=== PATIENT | male | born 1950 | race Caucasian/White ===

== ENCOUNTER → 2016-05-18 | Outpatient (CLI) | payer MEDICARE, BC ==
[~2016-05-18] MED LIST: HCTZ; HUM10VIA SQ; LABE200T27 PO; LORA0.5T86 PO; METF-200 PO; TAMS0.4C20 PO
== END ==
LOC: LABN.WIC 12:00 → LABN 12:00
PROVIDERS: ATTEND Family Medicine
DX: N39.0 Urinary tract infection, site not specified (principal)
CPT/HCPCS: 87086

== ENCOUNTER 2017-04-20 12:30 | Inpatient (IN) ==
--- OUTSIDE RECORDS SUMMARY | 2017-04-20 13:49 | External Medical Summary | Continuity of Care Document ---
:1950 Author Organization [facility] Care Team Providers Name Role Phone [employer] Unavailable Unavailable Encounters Location Location Encounter Encounter Reason Attending ADM DC Status Source Details Type Number For Provider Date Date Visit INPATIENT [id number] ZAC 04/07 04/20 Active [facility] O Active [facility]
--- OUTSIDE RECORDS SUMMARY | 2017-04-20 13:50 | External Medical Summary | Clinical Summary ---
:1950 Author Organization [facility] Address [address] [place] [address] Phone Care Team Providers Name Role Phone Chad Flores MD Primary Care Provider Source Comments Some departments are not documenting in the electronic medical record. If you do not see the information that you expected, contact Release of Information in the Health Information Management department at [phone] for further assistance in locating additional records.[facility] Allergies No Known Allergies Current Medications Prescription Sig. Disp. Refills Start Date End Date Status metFORMIN Take 500 mg by Active (GLUCOPHAGE) 500 mg mouth twice tablet daily with meals. tamsulosin (FLOMAX) Take 0.4 mg by Active 0.4 mg capsule mouth daily. Do not crush, chew or open capsules. Take 30 minutes following the same meal each day. atorvastatin Take 40 mg by Active (LIPITOR) 40 mg mouth daily. tablet amlodipine-benazepri Take 1 capsule Active l (LOTREL) 5-10 mg by mouth daily. capsule nitroglycerin Place 0.3 mg Active (NITROSTAT) 0.3 mg under tongue tablet every 5 minutes as needed for Chest Pain. sertraline (ZOLOFT) Take 1.5 04/20/2017 Active 100 mg tablet tablets by mouth daily. carvedilol (COREG) Take 1 tablet 180 tablet 3 04/20/2017 Active 3.125 mg tablet by mouth twice daily. Take with food. prednisone Take 4 tablets 16 tablet 0 04/20/2017 04/24/2017 Active (DELTASONE) 20 mg by mouth daily tablet for 4 days. famotidine (PEPCID) Take 1 tablet 180 tablet 3 04/20/2017 Active 20 mg tablet by mouth twice daily. insulin aspart U-100 Inject 8 Units 45 mL 3 04/20/2017 Active (NOVOLOG FLEXPEN) under the skin 100 unit/mL three times injection PEN daily with meals. insulin glargine Inject 16 Units 45 mL 3 04/20/2017 Active (LANTUS SOLOSTAR, under the skin BASAGLAR) 100 at bedtime unit/mL (3 mL) daily. injection PEN polyethylene glycol Take 2 packets 12 each 1 04/20/2017 Active 3350 (MIRALAX) 17 g by mouth twice packet daily as needed. calcium Take 1 tablet 180 tablet 1 04/20/2017 Active carbonate/vitamin by mouth twice D-3 (OSCAL-500+D) daily. Calcium 1250 mg/200 unit Carb 1250mg tablet delivers 500mg elemental Ca sertraline (ZOLOFT) Take 100 mg by 04/20/2017 Suspended 100 mg tablet mouth daily. gabapentin Take 1,200 mg 04/20/2017 Suspended (NEURONTIN) 600 mg by mouth three tablet times daily. HYDROcodone/acetamin Take 1-2 04/20/2017 Suspended ophen(+) (NORCO) tablets by 10/325 mg tablet mouth every 6 hours as needed for Pain aspirin 325 mg Take 325 mg by 04/20/2017 Suspended tablet mouth daily. Take with food. Active Problems Problem Noted Date Stroke (HCC) 04/07/2017 Secondary hypertension 04/07/2017 Agitation 04/07/2017 Elevated troponin 04/07/2017 Encounters Date Type Specialty Care Team Description 04/17/2017 Procedure Pass 04/09/2017 Procedure Pass 04/09/2017 Procedure Pass 04/08/2017 Anesthesia Event Radiology Guillermo Staples, SYLVIE 04/08/2017 Anesthesia Event Radiology Kassy Clarke MD 04/08/2017 Procedure Pass 04/07/2017 - Hospital Encounter Reza Naylor MD Stroke ([facility]) 04/20/2017 Ely Casey MD Sharma, Kartavya, MD Aggarwal, Dipika, MBBS Rosterman, Lee, DO 04/07/2017 Hospital Encounter Radiology 04/07/2017 Procedure Pass 04/07/2017 Procedure Pass 04/07/2017 Procedure Pass 04/07/2017 Procedure Pass 04/07/2017 Hospital Encounter Radiology 04/07/2017 Ancillary Orders Radiology Outpatient, Diagnosis unknown Radiologist from Last 3 Months Social History Tobacco Use Types Packs/Day Years Used Date Never Assessed Sex Assigned at Date Recorded Not on file Last Filed Vital Signs Vital Sign Reading Time Taken Blood Pressure 179/87 04/20/2017 6:11 AM [employer] Pulse 117 04/20/2017 6:11 AM [employer] Temperature 36.9 C (98.4 F) 04/20/2017 6:11 AM [employer] Respiratory Rate - - Oxygen Saturation 93% 04/20/2017 6:11 AM [employer] Inhaled Oxygen Concentration - - Weight 101.1 kg (222 lb 14.2 oz) 04/15/2017 12:00 AM [employer] Height 188 cm (6' 2.02") 04/07/2017 4:00 PM [employer] Body Mass Index 28.6 04/15/2017 12:00 AM [employer] Plan of Treatment Health Maintenance Due Date Last Done Comments HEPATITIS C SCREENING 1950 PHYSICAL (COMPREHENSIVE) EXAM 1957 PERTUSSIS VACCINE 1961 TETANUS VACCINE 11/09/1967 COLORECTAL CANCER SCREENING 2000 SHINGLES VACCINE 2010 PREVNAR/PNEUMOVAX (#1) 11/09/2015 INFLUENZA VACCINE 09/17/2017 Procedures Procedure Name Priority Date/Time Associated Diagnosis Comments ECG-SCAN 04/08/2017 10:25 PM Results for this [employer] procedure are in the results section. from Last 3 Months Results POC GLUCOSE (04/20/2017 7:59 AM)Only the most recent of108 resultswithin the time period is included. Component Value Ref Range Glucose, POC 83 70 - 100 MG/DL Specimen Performing Laboratory [facility] [address] [place] [address] NOTES (04/20/2017 5:56 AM)Only the most recent of2 resultswithin the time period is included. Component Value Ref Range Specimen Notes FAGOTER RT WRIST Specimen Performing Laboratory REFERENCE LAB CBC AND DIFF (04/20/2017 5:56 AM)Only the most recent of10 resultswithin the time period is included. Component Value Ref Range White Blood Cells 15.1 (H) 4.5 - 11.0 K/UL RBC 3.22 (L) 4.4 - 5.5 M/UL Hemoglobin 9.9 (L) 13.5 - 16.5 GM/DL Hematocrit 30.1 (L) 40 - 50 % MCV 93.4 80 - 100 FL MCH 30.8 26 - 34 PG MCHC 32.9 32.0 - 36.0 G/DL RDW 14.7 11 - 15 % Platelet Count 150 150 - 400 K/UL MPV 8.9 7 - 11 FL Neutrophils 83 (H) 41 - 77 % Lymphocytes 12 (L) 24 - 44 % Monocytes 5 4 - 12 % Eosinophils 0 0 - 5 % Basophils 0 0 - 2 % Absolute Neutrophil Count 12.50 (H) 1.8 - 7.0 K/UL Absolute Lymph Count 1.80 1.0 - 4.8 K/UL Absolute Monocyte Count 0.70 0 - 0.80 K/UL Absolute Eosinophil Count 0.10 0 - 0.45 K/UL Absolute Basophil Count 0.00 0 - 0.20 K/UL Specimen Performing Laboratory [facility] [address] [place] [address] MAGNESIUM (04/20/2017 5:56 AM)Only the most recent of13 resultswithin the time period is included. Component Value Ref Range Magnesium 1.8 1.6 - 2.6 mg/dL Specimen Performing Laboratory [facility] [address] [place] [address] IONIZED CALCIUM (04/20/2017 5:56 AM)Only the most recent of11 resultswithin the time period is included. Component Value Ref Range Ionized Calcium 1.26 1.0 - 1.3 MMOL/L Specimen Performing Laboratory [facility] [address] [place] [address] BASIC METABOLIC PANEL (04/20/2017 5:56 AM)Only the most recent of39 resultswithin the time period is included. Component Value Ref Range Sodium 141 137 - 147 MMOL/L Potassium 3.4 (L) 3.5 - 5.1 MMOL/L Chloride 104 98 - 110 MMOL/L CO2 28 21 - 30 MMOL/L Anion Gap 9 3 - 12 Glucose 71 70 - 100 MG/DL Blood Urea Nitrogen 26 (H) 7 - 25 MG/DL Creatinine 0.98 0.4 - 1.24 MG/DL Calcium 9.3 8.5 - 10.6 MG/DL eGFR Non >60 >60 mL/min Comment: The eGFR is not validated for use in drug dosing adjustments.Continue to use estimated creatinine clearance per dosing reference text.Please contact the Clinical Pharmacist for questions. eGFR >60 >60 mL/min Comment: The eGFR is not validated for use in drug dosing adjustments.Continue to use estimated creatinine clearance per dosing reference text.Please contact the Clinical Pharmacist for questions. Specimen Performing Laboratory Blood [facility] [address] [place] [address] NM PET SCAN TORSO (SKULL-THIGHS) (04/18/2017 11:34 AM) Specimen Performing Laboratory [facility] RAD RESULTS Impressions 1.Findings suggestive of primary infrahilar neoplasm with postobstructive pneumonia and probable malignant right pleural effusion. 2.Metabolically active right hilar lymphadenopathy concerning for tommy metastatic disease. 3.Metabolically active hepatic lesion compatible with hepatic metastatic disease. 4.Scattered metabolically active lytic osseous lesions compatible with osseous metastatic disease. Approved by Chad Mendez M.D. on 04/18/2017 3:09 PM By my electronic signature, I attest that I have personally reviewed the images for this examination and formulated the interpretations and opinions expressed in this report Finalized by Ben Albrecht M.D. on 04/18/2017 5:45 PM. Dictated by Chad Mendez M.D. on 04/18/2017 12:57 PM. 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 RADIOPHARMACEUTICAL:17.8 mCi F-18 Fluorodeoxyglucose (FDG) IV. TECHNIQUE: Beginning approximately 60 minutes after tracer administration, routine whole body PET/CT imaging was performed from the level of the base of the skull to the upper thighs. PET images were reviewed in standard orthogonal projections. Low dose non-contrast CT imaging was performed for attenuation correction and localization purposes. BLOOD GLUCOSE LEVEL AT THE TIME OF RADIOPHARMACEUTICAL ADMINISTRATION:124 mg/dl COMPARISON: None FINDINGS: Current SUV: Mean hepatic: 2.2 Max hepatic: 4.5 Head/Neck: No suspicious lesions are identified in this region. Chest: Redemonstration of an infrahilar mass which demonstrates a maximum SUV of 8.23 (index -412, CT image 131). Hypermetabolic right hilar lymphadenopathy with maximum SUV of 6.88 (index -382, CT image 122). Additional nodular pulmonary opacities are present within the dependent right lung adjacent to the pleural effusion and demonstrate mild increased FDG uptake, maximum SUV of 8.22 (index -435). Pleural effusion demonstrates a maximum SUV of 3.12 (index -474, CT image 150). Abdomen/Pelvis: Hypermetabolic lesion within hepatic segment 6 demonstrates a maximum SUV of 16.5 (index -585, CT image 104). No hypermetabolic abdominal or pelvic lymphadenopathy. Physiological activity is noted within the kidneys and bladder. Osseous Structures: Numerous scattered hypermetabolic lytic osseous lesions are present including within the cervical spine, thoracolumbar spine, right clavicle, manubrium, sternum, bilateral scapulae, proximal right humerus, bilateral ribs, bilateral iliac bones, right acetabulum, sacrum, and bilateral proximal femurs (greater on the right). Nicu Rn lesion within the lateral right third rib demonstrates a maximum SUV of 6.05 (index -336, CT image 108). Additional significant low dose CT findings: Right pleural effusion. Bilateral nonobstructing nephrolithiasis. Diverticulosis. Bilateral small fat-containing inguinal hernias. Uncorrected PET images:Uncorrected PET images demonstrate no additional abnormality. 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 RADIOPHARMACEUTICAL: 17.8 mCi F-18 Fluorodeoxyglucose (FDG) IV. TECHNIQUE: Beginning approximately 60 minutes after tracer administration, routine whole body PET/CT imaging was performed from the level of the base of the skull to the upper thighs. PET images were reviewed in standard orthogonal projections. Low dose non-contrast CT imaging was performed for attenuation correction and localization purposes. BLOOD GLUCOSE LEVEL AT THE TIME OF RADIOPHARMACEUTICAL ADMINISTRATION: 124 mg/ dl COMPARISON: None FINDINGS: Current SUV: Mean hepatic: 2.2 Max hepatic: 4.5 Head/Neck: No suspicious lesions are identified in this region. Chest: Redemonstration of an infrahilar mass which demonstrates a maximum SUV of 8.23 (index -412, CT image 131). Hypermetabolic right hilar lymphadenopathy with maximum SUV of 6.88 (index -382, CT image 122). Additional nodular pulmonary opacities are present within the dependent right lung adjacent to the pleural effusion and demonstrate mild increased FDG uptake , maximum SUV of 8.22 (index -435). Pleural effusion demonstrates a maximum SUV of 3.12 (index -474, CT image 150). Abdomen/Pelvis: Hypermetabolic lesion within hepatic segment 6 demonstrates a maximum SUV of 16.5 (index -585, CT image 104). No hypermetabolic abdominal or pelvic lymphadenopathy. Physiological activity is noted within the kidneys and bladder. Osseous Structures: Numerous scattered hypermetabolic lytic osseous lesions are present including within the cervical spine, thoracolumbar spine, right clavicle, manubrium, sternum, bilateral scapulae, proximal right humerus, bilateral ribs, bilateral iliac bones, right acetabulum, sacrum , and bilateral proximal femurs (greater on the right). Nicu Rn lesion within the lateral right third rib demonstrates a maximum SUV of 6.05 (index -336, CT image 108). Additional significant low dose CT findings: Right pleural effusion. Bilateral nonobstructing nephrolithiasis. Diverticulosis. Bilateral small fat-containing inguinal hernias. Uncorrected PET images: Uncorrected PET images demonstrate no additional abnormality. IMPRESSION 1. Findings suggestive of primary infrahilar neoplasm with postobstructive pneumonia and probable malignant right pleural effusion. 2. Metabolically active right hilar lymphadenopathy concerning for tommy metastatic disease. 3. Metabolically active hepatic lesion compatible with hepatic metastatic disease. 4. Scattered metabolically active lytic osseous lesions compatible with osseous metastatic disease. Approved by Chad Mendez M.D. on 04/18/2017 3:09 PM By my electronic signature, I attest that I have personally reviewed the images for this examination and formulated the interpretations and opinions expressed in this report Finalized by Ben Albrecht M.D. on 04/18/2017 5:45 PM. Dictated by Chad Mendez M.D. on 04/18/2017 12:57 PM. PHOSPHORUS (04/18/2017 5:02 AM)Only the most recent of10 resultswithin the time period is included. Component Value Ref Range Phosphorus 3.6 2.0 - 4.0 MG/DL Specimen Performing Laboratory [facility] [address] [place] [address] URINALYSIS MICROSCOPIC REFLEX TO CULTURE (04/17/2017 5:00 PM)Only the most recent of3 resultswithin the time period is included. Component Value Ref Range WBCs,UA 0-2 0 - 2 /HPF RBCs,UA 0-2 0 - 3 /HPF Comment,UA Urine submitted for reflex culture if criteria are met:WBC>10, positive nitrite and/or >=1+ leukocyte esterase. If quantity is not sufficient, an addendum will follow. MucousUA TRACE Squamous Epithelial Cells 0-2 0 - 5 Specimen Performing Laboratory Urine [facility] [address] [place] [address] URINALYSIS DIPSTICK REFLEX TO CULTURE (04/17/2017 5:00 PM)Only the most recent of3 resultswithin the time period is included. Component Value Ref Range Color,UA YELLOW Turbidity,UA CLEAR CLEAR-CLEAR Specific [place]-Urine 1.016 1.003 - 1.035 pH,UA 5.0 5.0 - 8.0 Protein,UA NEG NEG-NEG Glucose,UA 1+ (A) NEG-NEG Ketones,UA NEG NEG-NEG Bilirubin,UA NEG NEG-NEG Blood,UA NEG NEG-NEG Urobilinogen,UA NORMAL NORM-NORMAL Nitrite,UA NEG NEG-NEG Leukocytes,UA NEG NEG-NEG Urine Ascorbic Acid, UA NEG NEG-NEG Specimen Performing Laboratory Urine [facility] [address] [place] [address] CHEST SINGLE VIEW (04/17/2017 1:53 PM)Only the most recent of3 resultswithin the time period is included. Specimen Performing Laboratory [facility] RESULTS Impressions Persistent consolidation in the right lung base likely due to pneumonia. Approved by Claude Olivarez M.D. on 04/17/2017 2:34 PM By my electronic signature, I attest that I have personally reviewed the images for this examination and formulated the interpretations and opinions expressed in this report Finalized by ALEX ROY M.D. on 04/17/2017 4:56 PM. Dictated by Claude Olivarez M.D. on 04/17/2017 1:55 PM. Narrative CHEST SINGLE VIEW Clinical Indication: Male, 66 years old. Leukocytosis. Tachycardia. Comparison: Chest x-ray April 08, 2017. CT chest April 09, 2017. Findings: Interval removal of endotracheal tube and enteric tube. Cardiac silhouette and pulmonary vasculature are within normal limits. Persisting consolidation in the right lung base. No pleural effusion or pneumothorax. Pathologic fracture is again seen involving the right third rib. Procedure Note Interface, Radiant Results - 04/17/2017 4:59 PM [employer] CHEST SINGLE VIEW Clinical Indication: Male, 66 years old. Leukocytosis. Tachycardia. Comparison: Chest x-ray April 08, 2017. CT chest April 09, 2017. Findings: Interval removal of endotracheal tube and enteric tube. Cardiac silhouette and pulmonary vasculature are within normal limits. Persisting consolidation in the right lung base. No pleural effusion or pneumothorax. Pathologic fracture is again seen involving the right third rib. IMPRESSION Persistent consolidation in the right lung base likely due to pneumonia. Approved by Claude Olivarez M.D. on 04/17/2017 2:34 PM By my electronic signature, I attest that I have personally reviewed the images for this examination and formulated the interpretations and opinions expressed in this report Finalized by ALEX ROY M.D. on 04/17/2017 4:56 PM. Dictated by Claude Olivarez M.D. on 04/17/2017 1:55 PM. CBC (04/17/2017 5:26 AM)Only the most recent of4 resultswithin the time period is included. Component Value Ref Range White Blood Cells 19.2 (H) 4.5 - 11.0 K/UL RBC 3.48 (L) 4.4 - 5.5 M/UL Hemoglobin 10.5 (L) 13.5 - 16.5 GM/DL Hematocrit 32.5 (L) 40 - 50 % MCV 93.4 80 - 100 FL MCH 30.2 26 - 34 PG MCHC 32.4 32.0 - 36.0 G/DL RDW 14.4 11 - 15 % Platelet Count 139 (L) 150 - 400 K/UL MPV 9.7 7 - 11 FL Specimen Performing Laboratory [facility] [address] [place] [address] NON-STATION EXAMINER CYTOLOGY (BODY FLUIDS/TISSUE) (04/15/2017 1:55 PM) Component Value Ref Range Cytology [facility] [email or web address] Department of Pathology and Laboratory Medicine [address] [place] [address] Surgical Pathology Office:[phone]:[phone] CYTOLOGY REPORT NAME: ROHAN LOMBARDI CYTOLOGY #: [id number] MR #: [id number] ALT ID #: BILLING #: [id number] LOC[facility]: [facility] DATE OF PROCEDURE: 04/15/2017 AGE: 66 SEX: M DATE RECEIVED: 04/15/2017 : 1950TIME RECEIVED:13:55 PHYSICIAN: ELY MANRIQUEZ DATE OF REPORT: 04/17/2017 COPY TO: MD ASHLEY WHITE MD LEE ROSTERMAN, DO DATE OF PRINTIN04/17/2017 Material Received: A: Cerebrospinal Fluid History: 66 year old male, history of metastatic carcinoma of unknown origin and encephalopathy. Gross Description: ( 1 ThinPrep) 3ml blood tinged fluid ######################################################################## Final Diagnosis: A. Cerebrospinal Fluid: Negative for malignant cells. Please also see concurrent flow cytometry report ([id number]) which shows a negative phenotypic study. Attestation: By this signature, I attest that I have personally formulated the final interpretation expressed in this report and that the above diagnosis is based upon my examination of the slides and/or other material indicated in this report. +++Electronically Signed Out By+++ sabino/04/17/2017 Interpreted by: Yareli Davis MD, PhD Joselo Coello Specimen Performing Laboratory [facility] RESULTS IR LUMBAR PUNCTURE (04/15/2017 9:00 AM) Specimen Performing Laboratory [facility] RESULTS Impressions 1. Fluoroscopically guided lumbar puncture, opening pressures equal to less than 5 cm of water. 2. 9 cc of pinkish CSF removed and sent to the laboratory for further analysis. ILevar M.D., the attending radiologist, was present for the procedure, personally reviewed the images, and formulated the interpretations and opinions expressed in this report. @TT Finalized by Levar Gonzalez M.D. on 04/15/2017 9:24 AM. Dictated by Levar Gonzalez M.D. on 04/15/2017 9:23 AM. Narrative Exam: Fluoroscopically guided lumbar puncture. History: Encephalopathy, agitation. Technique: After obtaining informed written consent the patient was placed prone on the procedure table. The lower back was prepped and draped in a sterile fashion. Lidocaine was used for local anesthesia. An 18-gauge guide needle was placed into the dorsal soft tissues. The patient was then placed into a left lateral decubitus position. A 22-gauge spinal needle was advanced into the L3-4 intrathecal space. Opening pressures were obtained, and these measured less than 5 cm of water. Approximately 9 cc of pinkish CSF was removed. The needle was removed. The patient tolerated procedure well left the department in stable condition. Procedure Note Interface, Radiant Results - 04/15/2017 9:27 AM [employer] Exam: Fluoroscopically guided lumbar puncture. History: Encephalopathy, agitation. Technique: After obtaining informed written consent the patient was placed prone on the procedure table. The lower back was prepped and draped in a sterile fashion. Lidocaine was used for local anesthesia. An 18-gauge guide needle was placed into the dorsal soft tissues. The patient was then placed into a left lateral decubitus position. A 22-gauge spinal needle was advanced into the L3-4 intrathecal space. Opening pressures were obtained, and these measured less than 5 cm of water. Approximately 9 cc of pinkish CSF was removed. The needle was removed. The patient tolerated procedure well left the department in stable condition. IMPRESSION 1. Fluoroscopically guided lumbar puncture, opening pressures equal to less than 5 cm of water. 2. 9 cc of pinkish CSF removed and sent to the laboratory for further analysis. I, Levar Gonzalez M.D., the attending radiologist, was present for the procedure , personally reviewed the images, and formulated the interpretations and opinions expressed in this report. @TT Finalized by Levar Gonzalez M.D. on 04/15/2017 9:24 AM. Dictated by Levar Gonzalez M.D. on 04/15/2017 9:23 AM. FLOW CYTOMETRY (04/15/2017 8:48 AM) Component Value Ref Range PATHOLOGY REPORT [facility] [email or web address] Caprice Marroquin MD, Director of Clinical Laboratory Wang Kovacs MD, Director of Flow Cytometry Laboratory Department of Pathology and Laboratory Medicine [address] [place] [address] Surgical Pathology Office:[phone]:[phone] FLOW CYTOMETRY REPORT NAME: ROHAN LOMBARDI SURG PATH #: [id number] MR #: [id number] SPECIMEN CLASS: LC BILLING #: [id number] ALT ID #:LOCATION: [facility] DATE OF PROCEDURE: 04/15/2017 AGE:66 SEX: M DATE RECEIVED: 04/15/2017 : 1950TIME RECEIVED:09:51 PHYSICIAN: ZAC NICOLAS DO DATE OF REPORT: 04/15/2017 COPY TO: MD ASHLEY ROBERTS MD APARNA PENDURTHINEU DATE OF PRINTIN04/15/2017 Material Received: A: Cerebrospinal fluid tube 4 History: 66-year-old male with history of altered mental status and multiple bone lesions. ######################################################################## Final Diagnosis: Cerebrospinal fluid, flow cytometry: Negative immunophenotypic study. Interpretation: Lymphocytes comprise 14% of total events.The majority are T cells with a normal CD4 to CD8 ratio of 3.69 and normal antigen expression. B cells are polyclonal with normal antigen expression.There is no immunophenotypic evidence of non-Hodgkin lymphoma. Attestation: By this signature, I attest that I have personally formulated the final interpretation expressed in this report and that the above diagnosis is based upon my examination of the slides and/or other material indicated in this report. +++Electronically Signed Out By+++ leb/04/15/2017 Interpreted by: MD Tyesha Horne MD Resident 04/15/2017 ######################################################################## Lab Data: Flow Cytometry - CSF Panel B Cell Associated Markers (% Positive Cells): CD19=17; Garnet=10; Lambda=7; Garnet:Lambda ratio=1.5 T Cell Associated Markers (% Positive Cells): CD3=76; CD4=60; CD8=17; CD3+CD4+=59; CD3+CD8+=16; CD4:CD8 ratio =3.7 Miscellaneous Markers (% Positive Cells): PD05=967; CD56=6 Cell Viability (%): qns Number of Cells Analyzed:9,568 Total Number of Markers: 8 Summary of Marker Combinations: Garnet/Lambda/4/3/19/45/56/8 This test was developed and its performance characteristics determined by the [facility] Flow Cytometry Laboratory.It has not been cleared or approved by the U.S. Food and Drug Administration (FDA).The FDA has determined that such clearance or approval is not necessary Specimen Performing Laboratory [facility] RESULTS LEUKEMIA/LYMPHOMA PANEL FLUID/TISSUE (04/15/2017 8:48 AM) Component Value Ref Range Leuk/Lymph Interpretation SEE PATHOLOGY REPORT Specimen/LLM CSF Specimen Performing Laboratory Cerebrospinal Fluid MAIN LAB [address] [place] [address] [id number] CELL COUNT W/DIFF-CSF (04/15/2017 8:48 AM)Only the most recent of2 resultswithin the time period is included. Component Value Ref Range Cell Count Tube,CSF TUBE 3 White Blood Cells,CSF 50 (HH) <5 /UL Comment: CRITICAL VALUE CALLED TO AND READ BACK BY/TIME/TECH KPR/1115/LETICIA S Red Blood Cells,CSF 19,800 /UL Neutrophils, CSF 63 % Lymphocytes, CSF 27 % Monocyte/Hisotocyte, CSF 10 % Clarity,CSF SLT BLOODY Path Interpretation, CSF HEMORRHAGIC FLUID Pathologist Signature INTERPRETED BY FRED WILLIS M.D. By the PATH SIGNATURE ABOVE, I attest that I have personally formulated the final interpretation expressed in this report and that the above diagnosis is based upon my examination of the slides and/or other material indicated in this report. Specimen Performing Laboratory Cerebrospinal fluid - Cerebrospinal Fluid MAIN LAB [address] [place] [address] TOTAL PROTEIN-CSF (04/15/2017 8:48 AM)Only the most recent of2 resultswithin the time period is included. Component Value Ref Range Total Protein,CSF 477 (H) 15 - 45 MG/DL Specimen Performing Laboratory Cerebrospinal fluid - Cerebrospinal Fluid [facility] [address] [place] [id number] GLUCOSE-CSF (04/15/2017 8:48 AM)Only the most recent of2 resultswithin the time period is included. Component Value Ref Range Glucose,CSF 104 (H) 40 - 75 MG/DL Xanthrochromia,CSF LARGE BLOOD PRESENT Specimen Performing Laboratory Cerebrospinal fluid - Cerebrospinal Fluid [facility] [address] [place] [address] C DIFFICILE BY PCR (04/14/2017 4:04 AM) Component Value Ref Range Battery Name C DIFFICILE PCR Specimen Description FECES Special Requests NONE C. Difficile Toxin B PCR NEGATIVE-wait 7 days to repeat test Report Status FINAL 04/14/2017 Specimen Performing Laboratory Feces [facility] [address] [place] [id number] BNP (B-TYPE NATRIURETIC PEPTI) (04/11/2017 5:32 PM)Only the most recent of2 resultswithin the time period is included. Component Value Ref Range B Type Natriuretic Peptide 84.0 0 - 100 PG/ML Specimen Performing Laboratory Blood [facility] [address] [place] [address] SURGICAL PATHOLOGY (04/11/2017 4:55 PM) Component Value Ref Range PATHOLOGY REPORT [facility] [email or web address] Department of Pathology and Laboratory Medicine [address] [place] [address] Surgical Pathology Office:[phone]:[phone] SURGICAL PATHOLOGY REPORT NAME: ROHAN LOMBARDI SURG PATH #: [id number] MR #: [id number] SPECIMEN CLASS: [facility] BILLING #: [id number] ALT ID #:LOCATION: [id number] DATE OF PROCEDURE: 04/11/2017 AGE:66 SEX: M DATE RECEIVED: 04/11/2017 : 1950TIME RECEIVED:16:55 PHYSICIAN: WERNER MACKEY MD DATE OF REPORT: 04/16/2017 COPY TO: MAGALY FAJARDO DO DATE OF PRINTIN04/16/2017 ######################################################################## Final Diagnosis: A. Bone, T-11, biopsy: Metastatic carcinoma. B. Bone, L-1, biopsy: Metastatic carcinoma. See comment. Comment: Immunohistochemical stains show the tumor cells are diffusely positive for CAM 5.2 and CK7, focally positive for GATA3 and androgen receptor (weak), negative for CK20, TTF-1, CDX2, PSA, PSAP and PAX-8. The immunoprofile are not specific for tumor origin, the metastatic tumor may come from carcinoma of bladder and upper GI tracts. Clinical correlation is recommended. Pursuant to the [employer] Program at the [facility] Pathology Department, selected slides from this case have been concurrently reviewed by the following pathologist: who agrees with the final diagnosis. Attestation: By this signature, I attest that I have personally formulated the final interpretation expressed in this report and that the above diagnosis is based upon my examination of the slides and/or other material indicated in this report. +++ +++ ksw/04/14/2017 ######################################################################## Material Received: A: T-11 B: L-1 History: 66-year-old male with a history of lytic lesions. Gross Description: A. Received in formalin, labeled with the patient's name and "T-11" is a 0.6 cm in length by 0.2 cm diameter brunner-brown, firm tissue fragment. The specimen is entirely submitted in cassette A1. Received in saline, labeled with the patient's name and "T-11" is a 0.9 x 0.5 x 0.2 cm irregular, brunner-red, firm tissue fragment. The specimen is entirely submitted in cassette A2. (lmt) B. Received in formalin, labeled with the patient's name and "L-1" is a 2.5 x 1.0 x 0.2 cm aggregate of pale brunner, soft tissue fragments with blood clotted elements. The specimen is entirely submitted in cassette B1. Received in saline, labeled with the patient's name and "L-1" is a 0.6 x 0.2 x 0.2 cm irregular, brunner-red, firm tissue fragment. The specimen is entirely submitted in cassette B2. (lmt) wlm/04/11/2017 If immunohistochemical stains and/or in situ hybridization are cited in this report, the performance characteristics were determined by the Department of Pathology and Laboratory Medicine of the [facility] ([employer]) in compliance with CLIA'88 regulations.Some of these tests rely on the use of "analyte specific reagents" and are subject to specific labeling requirements by the FDA. Known positive and negative control tissues demonstrate appropriate staining.Results should be interpreted with caution given the likelihood of false negativity on decalcified specimens.This testing was developed by the Department of Pathology and Laboratory Medicine of the [facility].It has not been cleared or approved by the FDA.The FDA has determined that such clearance or approval is not necessary. Specimen Performing Laboratory [facility] RESULTS GRAM STAIN (04/11/2017 2:00 PM)Only the most recent of3 resultswithin the time period is included. Component Value Ref Range Battery Name GRAM STAIN Specimen Description SPUTUM Special Requests NONE Gram Stain LESS THAN 10/LPF NEUTROPHILS LESS THAN 10/LPF SQUAMOUS EPITHELIAL CELLS NO ORGANISMS SEEN Report Status FINAL 04/11/2017 Specimen Performing Laboratory Sputum MAIN LAB [address] [place] [address] CULTURE-RESP,LOWER W/SENSITIVITY (04/11/2017 2:00 PM)Only the most recent of2 resultswithin the time period is included. Component Value Ref Range Battery Name LOWER RESP CULTURE Specimen Description SPUTUM Special Requests NONE Direct Gram Stain LESS THAN 10/LPF NEUTROPHILS LESS THAN 10/LPF SQUAMOUS EPITHELIAL CELLS NO ORGANISMS SEEN Culture Light growth NO SIGNIFICANT EYAD Report Status FINAL 04/13/2017 Specimen Performing Laboratory Sputum MAIN LAB [address] [place] [address] IR PERCUTANEOUS BIOPSY (04/11/2017 12:54 PM) Specimen Performing Laboratory [facility] RESULTS Impressions Impression: Fluoroscopically guided biopsy of the T11 and L1 vertebral bodies as discussed above. Levar Kaiser M.D., the attending radiologist, was present for the procedure, personally reviewed the images, and formulated the interpretations and opinions expressed in this report. @TT Finalized by Levar Gonzalez M.D. on 04/11/2017 2:06 PM. Dictated by Levar Gonzalez M.D. on 04/11/2017 1:05 PM. Narrative Exam: Fluoroscopically guided biopsy of T11, L1. History: Vertebral body lesion. Anesthesia: General endotracheal anesthesia. Comparison studies: Recent MRI scans. Technique: After obtaining informed written consent the patient was placed prone on the procedure table. The lower back was prepped and draped in a sterile fashion. The T11 level was localized with direct fluoroscopic visualization. Lidocaine was used for local anesthesia. A small skin incision overlying the right pedicle was made. An 11-gauge coaxial introducer set was advanced under direct fluoroscopic visualization, to the posterior aspect of the vertebral body. The biopsy device was inserted through the introducer set, and core biopsies were obtained. These were placed into saline and formalin, and sent to the laboratory for further analysis. The introducer set was removed. Hemostasis was achieved using manual compression. Dermabond and a sterile dressing was applied. The patient tolerated the procedure well and left the department in good condition. This same process was repeated for the L1 vertebral body. Procedure Note Interface, Radiant Results - 04/11/2017 2:09 PM [employer] Exam: Fluoroscopically guided biopsy of T11, L1. History: Vertebral body lesion. Anesthesia: General endotracheal anesthesia. Comparison studies: Recent MRI scans. Technique: After obtaining informed written consent the patient was placed prone on the procedure table. The lower back was prepped and draped in a sterile fashion. The T11 level was localized with direct fluoroscopic visualization. Lidocaine was used for local anesthesia. A small skin incision overlying the right pedicle was made. An 11-gauge coaxial introducer set was advanced under direct fluoroscopic visualization, to the posterior aspect of the vertebral body. The biopsy device was inserted through the introducer set, and core biopsies were obtained. These were placed into saline and formalin, and sent to the laboratory for further analysis. The introducer set was removed. Hemostasis was achieved using manual compression. Dermabond and a sterile dressing was applied. The patient tolerated the procedure well and left the department in good condition. This same process was repeated for the L1 vertebral body. IMPRESSION Impression: Fluoroscopically guided biopsy of the T11 and L1 vertebral bodies as discussed above. I, Levar Gonzalez M.D., the attending radiologist, was present for the procedure , personally reviewed the images, and formulated the interpretations and opinions expressed in this report. @TT Finalized by Levar Gonzalez M.D. on 04/11/2017 2:06 PM. Dictated by Levar Gonzalez M.D. on 04/11/2017 1:05 PM. UA REFLEX CULTURE LABEL (04/11/2017 11:31 AM)Only the most recent of2 resultswithin the time period is included. Component Value Ref Range UA Reflex Culture LAB LABEL Specimen Performing Laboratory Urine [facility] [address] [place] [id number] PROCALCITONIN (04/11/2017 11:31 AM)Only the most recent of2 resultswithin the time period is included. Component Value Ref Range Procalcitonin 0.08 <0.10 NG/ML Specimen Performing Laboratory Blood [facility] [address] [place] [phone] AMMONIA (04/11/2017 6:50 AM)Only the most recent of3 resultswithin the time period is included. Component Value Ref Range Ammonia 46 (H) 9 - 35 MCMOL/L Specimen Performing Laboratory Blood [facility] [address] [place] [address] HIV-1/2 ANTIGEN/ANTIBODY SCREEN (04/11/2017 3:10 AM) Component Value Ref Range HIV 1 and 2 AG AB Screen NEG NEG-NEG Specimen Performing Laboratory Blood [facility] [address] [place] [address] PERIPHERAL SMEAR (04/11/2017 3:10 AM) Component Value Ref Range Peripheral Smear NORMOCYTIC ANEMIA. GRANULOCYTOSIS WITHOUT LEFT SHIFT. PLATELETS APPEAR NORMAL IN NUMBER AND MORPHOLOGY. Pathologist Signature INTERPRETED BY MARY MEADE M.D. By the PATH SIGNATURE ABOVE, I attest that I have personally formulated the final interpretation expressed in this report and that the above diagnosis is based upon my examination of the slides and/or other material indicated in this report. Specimen Performing Laboratory Blood [facility] [address] [place] [address] LDH-LACTATE DEHYDROGENASE (04/11/2017 3:10 AM) Component Value Ref Range Lactate Dehydrogenase 573 (H) 100 - 210 U/L Specimen Performing Laboratory Blood [facility] [address] [place] [address] VITAMIN B1 (THIAMINE) WHOLE BLD (04/10/2017 11:12 AM) Component Value Ref Range Vitamin B1,Whole Blood 288 (H) Comment: Reference range: 70 to 180 Unit: nmol/L ADDITIONAL INFORMATION This test was developed and its performance characteristics determined by [facility] in a manner consistent with CLIA requirements. This test has not been cleared or approved by the U.S. Food and Drug Administration. [facility], [address] [facility], [place] [address] Specimen Performing Laboratory Blood REFERENCE LAB ALBUMIN (04/10/2017 11:12 AM) Component Value Ref Range Albumin 3.4 (L) 3.5 - 5.0 G/DL Specimen Performing Laboratory [facility] MAIN [facility] [address] [place] [address] PHENYTOIN, TOTAL (DILANTIN) (04/10/2017 11:12 AM) Component Value Ref Range Phenytoin 18.6 10.0 - 20.0 MCG/ML Specimen Performing Laboratory Blood MAIN LAB [address] [place] [address] SODIUM-URINE RANDOM (04/10/2017 9:46 AM)Only the most recent of2 resultswithin the time period is included. Component Value Ref Range Sodium, Random 115 MMOL/L Specimen Performing Laboratory Urine [facility] [address] [place] [address] POTASSIUM-URINE RANDOM (04/10/2017 9:46 AM) Component Value Ref Range Potassium, Random 22 MMOL/L Specimen Performing Laboratory Urine [facility] [address] [place] [address] 47086 OSMOLALITY-URINE RANDOM (04/10/2017 9:46 AM) Component Value Ref Range Osmolality-Urine 391 50 - 1,400 MOS/KG Specimen Performing Laboratory Urine [facility]IN [facility] [address] [place] [address] VANCOMYCIN RANDOM (04/09/2017 9:20 PM)Only the most recent of2 resultswithin the time period is included. Component Value Ref Range Vancomycin Random 9.9 MCG/ML Specimen Performing Laboratory Blood MAIN LAB [address] [place] [address] CT ABD/PELV WO CONTRAST (04/09/2017 5:08 PM) Specimen Performing Laboratory [facility] RESULTS Impressions CHEST: 1. Fullness of the right hilum, which may represent adenopathy versus hilar mass. 2. Mediastinal lymphadenopathy which may represent reactive lymph nodes versus tommy metastatic disease. 3. Right lower lobe lung consolidation likely representing pneumonia. Additional small consolidative processes in the right upper lobe, likely representing additional areas of pneumonia. 4. Scattered lytic lesions in various levels of the thoracic spine, bilateral ribs, bilateral scapula. Diagnostic considerations include lytic metastases, metabolic bone disease versus changes secondary to multiple myeloma. 4. Healing pathologic rib fractures involving the third ribs bilaterally as noted above. ABDOMEN AND PELVIS: 1. Mild hepatosplenomegaly with a tiny hepatic hypodense lesion in segment 4A that is too small to characterize. 2. Bilateral nonobstructive renal calculi. 3. Left adrenal nodule, incompletely characterized on this study. 4. No abdominal or pelvic lymphadenopathy. 5. Mildly enlarged prostate. 6. Scattered lytic lesions about the lumbar spine and pelvis. Considerations include lytic osseous metastases versus, metabolic bone disease multiple myeloma. Clinical and laboratory correlation is recommended. Approved by Catalino Oseguera M.D. on 04/10/2017 9:29 AM By my electronic signature, I attest that I have personally reviewed the images for this examination and formulated the interpretations and opinions expressed in this report Finalized by Ben Albrecht M.D. on 04/10/2017 10:25 AM. Dictated by Catalino Oseguera M.D. on 04/10/2017 7:[address] CHEST, ABDOMEN AND PELVIS Clinical Indication: Male, 66 years old. Rule out malignancy. Left frontal lobe FLAIR hyperintensity on brain MRI. Hypercalcemia. Technique: Multiple contiguous axial images were obtained through the chest, abdomen and pelvis without IV contrast material. Post processing coronal and sagittal reconstruction images were made from the axial images. IV contrast: None. Bowel contrast:None Comparison: None Interpretation of this examination is limited due to motion artifact. CHEST FINDINGS: Evaluation of the mediastinum and saúl, including the vasculature and for lymphadenopathy, is limited without the use of IV contrast. Lower Neck: Unremarkable Axilla, Mediastinum and Saúl: Mildly enlarged mediastinal lymph nodes as well as right hilar fullness/adenopathy and subcarinal adenopathy. An aggregate of precarinal/paratracheal nodes measure 1.6 x 1.6 cm (series 601 image 105). Evaluation of these is limited without IV contrast. Heart and Great Vessels: Heart is normal in size. There is mild coronary artery and aortic arch calcification. Airway, Lungs and Pleura: There is a right lower lobe consolidation with additional small patches of consolidative processes in the right upper lobe. Left lower lobe atelectasis is seen. There is a moderately sized right pleural effusion. No pneumothorax is appreciated. Chest Wall and Osseous Structures: There are scattered lytic lesions throughout the thoracic spine, bilateral rib cage and bilateral scapular. There are healing pathologic rib fractures seen in the right posterior 3rd rib as well as the left anterior 3rd rib. Abdomen and Pelvis Findings: Limited evaluation without the use of IV contrast which includes the viscera and vasculature. Liver and Biliary system: The unopacified liver demonstrates mild hepatomegaly. There is a small suspicious hypodensity seen in hepatic segment 4A (series 601 image 94), though this is too small to characterize. The gallbladder is surgically absent. Spleen: Mild splenomegaly without focal lesion. Adrenal Glands and Kidneys: The right adrenal gland is unremarkable. A left adrenal gland nodule is seen and measures 1.2 cm in diameter, though is incompletely characterized on this study. There are bilateral subcentimeter nonobstructive renal calculi. Kidneys are normal in size with no obvious mass lesion. Bilateral perinephric stranding is seen, which is a nonspecific finding mild Pancreas and Retroperitoneum: Pancreas is unremarkable. There is no retroperitoneal lymphadenopathy. Aorta and Major Vessels: There is mild aortoiliac atherosclerotic plaque. Aorta is normal in caliber. Bowel, Mesentery and Peritoneal space: Large and small bowel loops are normal in caliber. There are scattered diverticula throughout the colon. No ascites or free air. No mesenteric adenopathy. Pelvis: The prostate is mildly enlarged. Seminal vesicles are unremarkable. A urinary catheter is in place, there is some air visualized in the bladder secondary to instrumentation. Abdominal wall and Osseous Structures: Prior laminectomy and posterior spinal fixation of the lumbar spine to S1. There are scattered lytic lesions about the lumbar spine and throughout the pelvis. There is mild spondylosis of the lumbar spine. There is also bilateral fat-containing inguinal hernias. Procedure Note Interface, Radiant Results - 04/10/2017 10:28 AM [employer] ATTEND[employer] CT CHEST, ABDOMEN AND PELVIS Clinical Indication: Male, 66 years old. Rule out malignancy. Left frontal lobe FLAIR hyperintensity on brain MRI. Hypercalcemia. Technique: Multiple contiguous axial images were obtained through the chest, abdomen and pelvis without IV contrast material. Post processing coronal and sagittal reconstruction images were made from the axial images. IV contrast: None. Bowel contrast: None Comparison: None Interpretation of this examination is limited due to motion artifact. CHEST FINDINGS: Evaluation of the mediastinum and saúl, including the vasculature and for lymphadenopathy, is limited without the use of IV contrast. Lower Neck: Unremarkable Axilla, Mediastinum and Saúl: Mildly enlarged mediastinal lymph nodes as well as right hilar fullness/adenopathy and subcarinal adenopathy. An aggregate of precarinal/paratracheal nodes measure 1.6 x 1.6 cm (series 601 image 105). Evaluation of these is limited without IV contrast. Heart and Great Vessels: Heart is normal in size. There is mild coronary artery and aortic arch calcification. Airway, Lungs and Pleura: There is a right lower lobe consolidation with additional small patches of consolidative processes in the right upper lobe. Left lower lobe atelectasis is seen. There is a moderately sized right pleural effusion. No pneumothorax is appreciated. Chest Wall and Osseous Structures: There are scattered lytic lesions throughout the thoracic spine, bilateral rib cage and bilateral scapular. There are healing pathologic rib fractures seen in the right posterior 3rd rib as well as the left anterior 3rd rib. Abdomen and Pelvis Findings: Limited evaluation without the use of IV contrast which includes the viscera and vasculature. Liver and Biliary system: The unopacified liver demonstrates mild hepatomegaly. There is a small suspicious hypodensity seen in hepatic segment 4A (series 601 image 94), though this is too small to characterize. The gallbladder is surgically absent. Spleen: Mild splenomegaly without focal lesion. Adrenal Glands and Kidneys: The right adrenal gland is unremarkable. A left adrenal gland nodule is seen and measures 1.2 cm in diameter, though is incompletely characterized on this study. There are bilateral subcentimeter nonobstructive renal calculi. Kidneys are normal in size with no obvious mass lesion. Bilateral perinephric stranding is seen, which is a nonspecific finding mild Pancreas and Retroperitoneum: Pancreas is unremarkable. There is no retroperitoneal lymphadenopathy. Aorta and Major Vessels: There is mild aortoiliac atherosclerotic plaque. Aorta is normal in caliber. Bowel, Mesentery and Peritoneal space: Large and small bowel loops are normal in caliber. There are scattered diverticula throughout the colon. No ascites or free air. No mesenteric adenopathy. Pelvis: The prostate is mildly enlarged. Seminal vesicles are unremarkable. A urinary catheter is in place, there is some air visualized in the bladder secondary to instrumentation. Abdominal wall and Osseous Structures: Prior laminectomy and posterior spinal fixation of the lumbar spine to S1. There are scattered lytic lesions about the lumbar spine and throughout the pelvis. There is mild spondylosis of the lumbar spine. There is also bilateral fat-containing inguinal hernias. IMPRESSION CHEST: 1. Fullness of the right hilum, which may represent adenopathy versus hilar mass. 2. Mediastinal lymphadenopathy which may represent reactive lymph nodes versus tommy metastatic disease. 3. Right lower lobe lung consolidation likely representing pneumonia. Additional small consolidative processes in the right upper lobe, likely representing additional areas of pneumonia. 4. Scattered lytic lesions in various levels of the thoracic spine, bilateral ribs, bilateral scapula. Diagnostic considerations include lytic metastases, metabolic bone disease versus changes secondary to multiple myeloma. 4. Healing pathologic rib fractures involving the third ribs bilaterally as noted above. ABDOMEN AND PELVIS: 1. Mild hepatosplenomegaly with a tiny hepatic hypodense lesion in segment 4A that is too small to characterize. 2. Bilateral nonobstructive renal calculi. 3. Left adrenal nodule, incompletely characterized on this study. 4. No abdominal or pelvic lymphadenopathy. 5. Mildly enlarged prostate. 6. Scattered lytic lesions about the lumbar spine and pelvis. Considerations include lytic osseous metastases versus, metabolic bone disease multiple myeloma. Clinical and laboratory correlation is recommended. Approved by Catalino Oseguera M.D. on 04/10/2017 9:29 AM By my electronic signature, I attest that I have personally reviewed the images for this examination and formulated the interpretations and opinions expressed in this report Finalized by Ben Albrecht M.D. on 04/10/2017 10:25 AM. Dictated by Catalino Oseguera M.D. on 04/10/2017 7:[address] CHEST WO CONTRAST (04/09/2017 5:08 PM) Specimen Performing Laboratory [facility] RAD RESULTS Impressions CHEST: 1. Fullness of the right hilum, which may represent adenopathy versus hilar mass. 2. Mediastinal lymphadenopathy which may represent reactive lymph nodes versus tommy metastatic disease. 3. Right lower lobe lung consolidation likely representing pneumonia. Additional small consolidative processes in the right upper lobe, likely representing additional areas of pneumonia. 4. Scattered lytic lesions in various levels of the thoracic spine, bilateral ribs, bilateral scapula. Diagnostic considerations include lytic metastases, metabolic bone disease versus changes secondary to multiple myeloma. 4. Healing pathologic rib fractures involving the third ribs bilaterally as noted above. ABDOMEN AND PELVIS: 1. Mild hepatosplenomegaly with a tiny hepatic hypodense lesion in segment 4A that is too small to characterize. 2. Bilateral nonobstructive renal calculi. 3. Left adrenal nodule, incompletely characterized on this study. 4. No abdominal or pelvic lymphadenopathy. 5. Mildly enlarged prostate. 6. Scattered lytic lesions about the lumbar spine and pelvis. Considerations include lytic osseous metastases versus, metabolic bone disease multiple myeloma. Clinical and laboratory correlation is recommended. Approved by Catalino Oseguera M.D. on 04/10/2017 9:29 AM By my electronic signature, I attest that I have personally reviewed the images for this examination and formulated the interpretations and opinions expressed in this report Finalized by Ben Albrecht M.D. on 04/10/2017 10:25 AM. Dictated by Catalino Oseguera M.D. on 04/10/2017 7:[address] CHEST, ABDOMEN AND PELVIS Clinical Indication: Male, 66 years old. Rule out malignancy. Left frontal lobe FLAIR hyperintensity on brain MRI. Hypercalcemia. Technique: Multiple contiguous axial images were obtained through the chest, abdomen and pelvis without IV contrast material. Post processing coronal and sagittal reconstruction images were made from the axial images. IV contrast: None. Bowel contrast:None Comparison: None Interpretation of this examination is limited due to motion artifact. CHEST FINDINGS: Evaluation of the mediastinum and saúl, including the vasculature and for lymphadenopathy, is limited without the use of IV contrast. Lower Neck: Unremarkable Axilla, Mediastinum and Saúl: Mildly enlarged mediastinal lymph nodes as well as right hilar fullness/adenopathy and subcarinal adenopathy. An aggregate of precarinal/paratracheal nodes measure 1.6 x 1.6 cm (series 601 image 105). Evaluation of these is limited without IV contrast. Heart and Great Vessels: Heart is normal in size. There is mild coronary artery and aortic arch calcification. Airway, Lungs and Pleura: There is a right lower lobe consolidation with additional small patches of consolidative processes in the right upper lobe. Left lower lobe atelectasis is seen. There is a moderately sized right pleural effusion. No pneumothorax is appreciated. Chest Wall and Osseous Structures: There are scattered lytic lesions throughout the thoracic spine, bilateral rib cage and bilateral scapular. There are healing pathologic rib fractures seen in the right posterior 3rd rib as well as the left anterior 3rd rib. Abdomen and Pelvis Findings: Limited evaluation without the use of IV contrast which includes the viscera and vasculature. Liver and Biliary system: The unopacified liver demonstrates mild hepatomegaly. There is a small suspicious hypodensity seen in hepatic segment 4A (series 601 image 94), though this is too small to characterize. The gallbladder is surgically absent. Spleen: Mild splenomegaly without focal lesion. Adrenal Glands and Kidneys: The right adrenal gland is unremarkable. A left adrenal gland nodule is seen and measures 1.2 cm in diameter, though is incompletely characterized on this study. There are bilateral subcentimeter nonobstructive renal calculi. Kidneys are normal in size with no obvious mass lesion. Bilateral perinephric stranding is seen, which is a nonspecific finding mild Pancreas and Retroperitoneum: Pancreas is unremarkable. There is no retroperitoneal lymphadenopathy. Aorta and Major Vessels: There is mild aortoiliac atherosclerotic plaque. Aorta is normal in caliber. Bowel, Mesentery and Peritoneal space: Large and small bowel loops are normal in caliber. There are scattered diverticula throughout the colon. No ascites or free air. No mesenteric adenopathy. Pelvis: The prostate is mildly enlarged. Seminal vesicles are unremarkable. A urinary catheter is in place, there is some air visualized in the bladder secondary to instrumentation. Abdominal wall and Osseous Structures: Prior laminectomy and posterior spinal fixation of the lumbar spine to S1. There are scattered lytic lesions about the lumbar spine and throughout the pelvis. There is mild spondylosis of the lumbar spine. There is also bilateral fat-containing inguinal hernias. Procedure Note Interface, Radiant Results - 04/10/2017 10:28 AM [employer] CT CHEST, ABDOMEN AND PELVIS Clinical Indication: Male, 66 years old. Rule out malignancy. Left frontal lobe FLAIR hyperintensity on brain MRI. Hypercalcemia. Technique: Multiple contiguous axial images were obtained through the chest, abdomen and pelvis without IV contrast material. Post processing coronal and sagittal reconstruction images were made from the axial images. IV contrast: None. Bowel contrast: None Comparison: None Interpretation of this examination is limited due to motion artifact. CHEST FINDINGS: Evaluation of the mediastinum and saúl, including the vasculature and for lymphadenopathy, is limited without the use of IV contrast. Lower Neck: Unremarkable Axilla, Mediastinum and Saúl: Mildly enlarged mediastinal lymph nodes as well as right hilar fullness/adenopathy and subcarinal adenopathy. An aggregate of precarinal/paratracheal nodes measure 1.6 x 1.6 cm (series 601 image 105). Evaluation of these is limited without IV contrast. Heart and Great Vessels: Heart is normal in size. There is mild coronary artery and aortic arch calcification. Airway, Lungs and Pleura: There is a right lower lobe consolidation with additional small patches of consolidative processes in the right upper lobe. Left lower lobe atelectasis is seen. There is a moderately sized right pleural effusion. No pneumothorax is appreciated. Chest Wall and Osseous Structures: There are scattered lytic lesions throughout the thoracic spine, bilateral rib cage and bilateral scapular. There are healing pathologic rib fractures seen in the right posterior 3rd rib as well as the left anterior 3rd rib. Abdomen and Pelvis Findings: Limited evaluation without the use of IV contrast which includes the viscera and vasculature. Liver and Biliary system: The unopacified liver demonstrates mild hepatomegaly. There is a small suspicious hypodensity seen in hepatic segment 4A (series 601 image 94), though this is too small to characterize. The gallbladder is surgically absent. Spleen: Mild splenomegaly without focal lesion. Adrenal Glands and Kidneys: The right adrenal gland is unremarkable. A left adrenal gland nodule is seen and measures 1.2 cm in diameter, though is incompletely characterized on this study. There are bilateral subcentimeter nonobstructive renal calculi. Kidneys are normal in size with no obvious mass lesion. Bilateral perinephric stranding is seen, which is a nonspecific finding mild Pancreas and Retroperitoneum: Pancreas is unremarkable. There is no retroperitoneal lymphadenopathy. Aorta and Major Vessels: There is mild aortoiliac atherosclerotic plaque. Aorta is normal in caliber. Bowel, Mesentery and Peritoneal space: Large and small bowel loops are normal in caliber. There are scattered diverticula throughout the colon. No ascites or free air. No mesenteric adenopathy. Pelvis: The prostate is mildly enlarged. Seminal vesicles are unremarkable. A urinary catheter is in place, there is some air visualized in the bladder secondary to instrumentation. Abdominal wall and Osseous Structures: Prior laminectomy and posterior spinal fixation of the lumbar spine to S1. There are scattered lytic lesions about the lumbar spine and throughout the pelvis. There is mild spondylosis of the lumbar spine. There is also bilateral fat-containing inguinal hernias. IMPRESSION CHEST: 1. Fullness of the right hilum, which may represent adenopathy versus hilar mass. 2. Mediastinal lymphadenopathy which may represent reactive lymph nodes versus tommy metastatic disease. 3. Right lower lobe lung consolidation likely representing pneumonia. Additional small consolidative processes in the right upper lobe, likely representing additional areas of pneumonia. 4. Scattered lytic lesions in various levels of the thoracic spine, bilateral ribs, bilateral scapula. Diagnostic considerations include lytic metastases, metabolic bone disease versus changes secondary to multiple myeloma. 4. Healing pathologic rib fractures involving the third ribs bilaterally as noted above. ABDOMEN AND PELVIS: 1. Mild hepatosplenomegaly with a tiny hepatic hypodense lesion in segment 4A that is too small to characterize. 2. Bilateral nonobstructive renal calculi. 3. Left adrenal nodule, incompletely characterized on this study. 4. No abdominal or pelvic lymphadenopathy. 5. Mildly enlarged prostate. 6. Scattered lytic lesions about the lumbar spine and pelvis. Considerations include lytic osseous metastases versus, metabolic bone disease multiple myeloma. Clinical and laboratory correlation is recommended. Approved by Catalino Oseguera M.D. on 04/10/2017 9:29 AM By my electronic signature, I attest that I have personally reviewed the images for this examination and formulated the interpretations and opinions expressed in this report Finalized by Ben Albrecht M.D. on 04/10/2017 10:25 AM. Dictated by Catalino Oseguera M.D. on 04/10/2017 7:52 AM. PARANEOPLASTIC AB PANEL (PAE) W REFLEX TO CONF TESTING (04/09/2017 4:02 PM) Component Value Ref Range Anti-Neuronal Nuclear AB, Type 1 Negative Reference range: <1:240 Unit: titer [facility] Anti-Neuronal Nuclear AB, Type 2 Negative Reference range: <1:240 Unit: titer ADDITIONAL INFORMATION This test was developed and its performance characteristics determined by [facility] in a manner consistent with CLIA requirements. This test has not been cleared or approved by the U.S. Food and Drug Administration. [facility] Anti-Neuronal Nuclear AB, Type 3 Negative Reference range: <1:240 Unit: titer ADDITIONAL INFORMATION This test was developed and its performance characteristics determined by [facility] in a manner consistent with CLIA requirements. This test has not been cleared or approved by the U.S. Food and Drug Administration. [facility] Purkinje Cell Ab, Type 1 Negative Reference range: <1:240 Unit: titer ADDITIONAL INFORMATION This test was developed and its performance characteristics determined by [facility] in a manner consistent with CLIA requirements. This test has not been cleared or approved by the U.S. Food and Drug Administration. [facility] Purkinje Cell Ab, Type 2 Negative Reference range: <1:240 Unit: titer ADDITIONAL INFORMATION This test was developed and its performance characteristics determined by [facility] in a manner consistent with CLIA requirements. This test has not been cleared or approved by the U.S. Food and Drug Administration. [facility] Purkinje Cell Ab, Type TR Negative Reference range: <1:240 Unit: titer ADDITIONAL INFORMATION This test was developed and its performance characteristics determined by [facility] in a manner consistent with CLIA requirements. This test has not been cleared or approved by the U.S. Food and Drug Administration. [facility] Amphiphysin AB Negative Reference range: <1:240 Unit: titer ADDITIONAL INFORMATION This test was developed and its performance characteristics determined by [facility] in a manner consistent with CLIA requirements. This test has not been cleared or approved by the U.S. Food and Drug Administration. [facility] CRMP-5-IGG Negative Reference range: <1:240 Unit: titer ADDITIONAL INFORMATION This test was developed and its performance characteristics determined by [facility] in a manner consistent with CLIA requirements. This test has not been cleared or approved by the U.S. Food and Drug Administration. [facility] Striated Muscle AB Negative Reference range: <1:120 Unit: titer ADDITIONAL INFORMATION This test was developed and its performance characteristics determined by [facility] in a manner consistent with CLIA requirements. This test has not been cleared or approved by the U.S. Food and Drug Administration. [facility] Calcium Channel Binding Ab, P/Q 0.00 Comment: Reference range: <=0.02 Unit: nmol/L ADDITIONAL INFORMATION This test was developed and its performance characteristics determined by [facility] in a manner consistent with CLIA requirements. This test has not been cleared or approved by the U.S. Food and Drug Administration. [facility] Calcium Channel binding Ab, N type 0.00 Comment: Reference range: <=0.03 Unit: nmol/L ADDITIONAL INFORMATION This test was developed and its performance characteristics determined by [facility] in a manner consistent with CLIA requirements. This test has not been cleared or approved by the U.S. Food and Drug Administration. [facility] ACh Receptor Binding AB 0.00 Comment: Reference range: <=0.02 Unit: nmol/L ADDITIONAL INFORMATION This test was developed and its performance characteristics determined by [facility] in a manner consistent with CLIA requirements. This test has not been cleared or approved by the U.S. Food and Drug Administration. [facility] Achr Ganglio Neur AB 0.00 Comment: Reference range: <=0.02 Unit: nmol/L ADDITIONAL INFORMATION This test was developed and its performance characteristics determined by [facility] in a manner consistent with CLIA requirements. This test has not been cleared or approved by the U.S. Food and Drug Administration. [facility] Gliadin Nuclear AB, Type 1 Negative Reference range: <1:240 Unit: titer ADDITIONAL INFORMATION This test was developed and its performance characteristics determined by [facility] in a manner consistent with CLIA requirements. This test has not been cleared or approved by the U.S. Food and Drug Administration. [facility] Neuronal Voltage Gated K Channel AB 0.00 Comment: Reference range: <=0.02 Unit: nmol/L ADDITIONAL INFORMATION This test was developed and its performance characteristics determined by [facility] in a manner consistent with CLIA requirements. This test has not been cleared or approved by the U.S. Food and Drug Administration. [facility] . No informative autoantibodies were detected in the Paraneoplastic Evaluation. However, a negative result does not exclude neurological autoimmunity with or without associated neoplasia. Sensitivity and specificity of antibody testing are enhanced by testing both serum and CSF. [facility] Specimen Performing Laboratory Blood REFERENCE LAB IMMUNOFIXATION, SERUM (IFES) (04/09/2017 4:02 PM) Component Value Ref Range Immuno Fix-Serum NO PARAPROTEIN SEEN Pathologist Signature INTERPRETED BY TEA SHERWOOD M.D. By the PATH SIGNATURE ABOVE, I attest that I have personally formulated the final interpretation expressed in this report and that the above diagnosis is based upon my examination of the slides and/or other material indicated in this report. Specimen Performing Laboratory Blood [facility] [address] [place] [id number] ANTI SSA ANTI SSB AB (04/09/2017 11:11 AM) Component Value Ref Range Anti-SSA <0.2 <1.0 AI Comment: Interpretation: Negative NOTE NEW METHODOLOGY AND REFERENCE RANGE Anti-SSB <0.2 <1.0 AI Comment: Interpretation: Negative NOTE NEW METHODOLOGY AND REFERENCE RANGE Specimen Performing Laboratory [facility] [address] [place] [id number] MRSA SCREEN (04/09/2017 9:19 AM) Component Value Ref Range Battery Name MRSA SCREEN Specimen Description NASAL Special Requests NONE Culture NO MRSA ISOLATED Report Status FINAL 04/10/2017 Specimen Performing Laboratory Nasal [facility] [address] [place] [phone] ANTI-NUCLEAR AB(TAMMY)-QUANT (04/09/2017 9:16 AM) Component Value Ref Range TAMMY Titer/Pattern 160 (H) <80 Comment: SPECKLED NUCLEOLAR Specimen Performing Laboratory [facility] [address] [place] [phone] THYROGLOBULIN AB (04/09/2017 9:16 AM) Component Value Ref Range Thyroglobulin Ab 3.88 <4.11 IU/ML Specimen Performing Laboratory [facility] [address] [place] [id number] ANTI-NEUT CYTO AB (ANCA/PANCA) (04/09/2017 9:16 AM) Component Value Ref Range C-ANCA <20,NEGATIVE TITER P-ANCA <20,NEGATIVE TITER Specimen Performing Laboratory Blood [facility] [address] [place] [id number] ANTI-THYROPEROXIDASE (MICROSOMAL)AB (04/09/2017 9:16 AM) Component Value Ref Range Microsomal AB, TPO <3.00 <5.61 IU/ML Specimen Performing Laboratory [facility] [address] [place] [id number] ANGIOTENSIN CONV ENZYME (DOV) (04/09/2017 9:16 AM) Component Value Ref Range Angiotensin Convert Enzyme 17 Comment: Reference range: 8to53 Unit: U/L [facility] Specimen Performing Laboratory Blood REFERENCE LAB SED RATE (04/09/2017 9:16 AM) Component Value Ref Range Sed Rate -ESR 73 (H) 0 - 20 MM/HR Specimen Performing Laboratory Blood [facility] [address] [place] [address] C REACTIVE PROTEIN (CRP) (04/09/2017 9:16 AM) Component Value Ref Range C-Reactive Protein 8.91 (H) <1.0 MG/DL Specimen Performing Laboratory Blood [facility] [address] [place] [address] ANTI-NUCLEAR ANTIBODY(TAMMY) (04/09/2017 9:16 AM) Component Value Ref Range TAMMY Screen SEE TITER <80 TITER Specimen Performing Laboratory Blood [facility] [address] [place] [address] POTASSIUM (04/09/2017 8:40 AM)Only the most recent of2 resultswithin the time period is included. Component Value Ref Range Potassium 3.6 3.5 - 5.1 MMOL/L Specimen Performing Laboratory [facility] [address] [place] [address]31 ECG-SCAN (04/08/2017 10:25 PM) Narrative Ordered by an unspecified provider. ELECTROPHORESIS-UR RAN (04/08/2017 3:30 PM) Component Value Ref Range Total Protein, Urine 30 MG/DL Albumin %, Urine 54 % Alpha 1 %, Urine 12 % Alpha 2 %, Urine 14 % Beta %, Urine 9 % Gamma %, Urine 11 % UEP Interpretation NO PARAPROTEIN SEEN Pathologist Signature INTERPRETED BY TEA SHERWOOD M.D. By the PATH SIGNATURE ABOVE, I attest that I have personally formulated the final interpretation expressed in this report and that the above diagnosis is based upon my examination of the slides and/or other material indicated in this report. Specimen Performing Laboratory [facility] [address] [place] [id number] MRI HEAD WO/W CONTRAST (04/08/2017 2:14 PM) Specimen Performing Laboratory [facility] RESULTS Impressions 1. No mass effect or acute infarct identified. 2. Focus of FLAIR hyperintensity within the left frontal lobe is nonspecific and could be reflection of subacute infarct or prior insult. Possibly of underlying brain lesion such as a low-grade glioma not entirely excluded and would recommend a follow-up study in approximately 6 months time with contrast to document stability or evolution. 3. Mild chronic microvascular disease in the white matter. Finalized by Jd Love M.D. on 04/08/2017 1:51 PM. Dictated by Jd Love M.D. on 04/08/2017 1:46 PM. Narrative MRI brain Clinical history: Altered mild status, stroke Comparison study: CT scan, CTA 04/07/2017 Technique: Multi planar and multisequence imaging of the brain is obtained without and with IV contrast. Findings: No mass, mass effect, or midline shift is identified. The ventricles and next axial spaces are normal. There is no restricted diffusion that would suggest a recent infarct. Region of ill-defined FLAIR hyperintensity noted in the left frontal lobe which mainly involves the cortex and subcortical white matter. A few scattered subcentimeter foci of FLAIR hyperintensity noted throughout the white matter. Orbital contents are normal. No enhancing lesion identified. Procedure Note Interface, Radiant Results - 04/08/2017 2:15 PM [employer] MRI brain Clinical history: Altered mild status, stroke Comparison study: CT scan, CTA 04/07/2017 Technique: Multi planar and multisequence imaging of the brain is obtained without and with IV contrast. Findings: No mass, mass effect, or midline shift is identified. The ventricles and next axial spaces are normal. There is no restricted diffusion that would suggest a recent infarct. Region of ill-defined FLAIR hyperintensity noted in the left frontal lobe which mainly involves the cortex and subcortical white matter. A few scattered subcentimeter foci of FLAIR hyperintensity noted throughout the white matter. Orbital contents are normal. No enhancing lesion identified. IMPRESSION 1. No mass effect or acute infarct identified. 2. Focus of FLAIR hyperintensity within the left frontal lobe is nonspecific and could be reflection of subacute infarct or prior insult. Possibly of underlying brain lesion such as a low-grade glioma not entirely excluded and would recommend a follow-up study in approximately 6 months time with contrast to document stability or evolution. 3. Mild chronic microvascular disease in the white matter. Finalized by Jd Love M.D. on 04/08/2017 1:51 PM. Dictated by Jd Love M.D. on 04/08/2017 1:46 PM. TOTAL PROTEIN SEP (04/08/2017 11:40 AM) Component Value Ref Range Total Protein 7.0 6.0 - 8.0 g/dL Specimen Performing Laboratory Blood [facility]IN LAB [address] [place] [id number] ELECTROPHORESIS-SERUM PROTEIN (04/08/2017 11:40 AM) Component Value Ref Range Total Protein-SEP 7.0 6.0 - 8.0 G/DL Albumin % 43.8 (L) 48 - 68 % Alpha 1 % 7.3 (H) 2 - 6 % Alpha 2 % 24.2 (H) 5 - 15 % Beta %,Serum 12.2 9 - 17 % Gamma % 12.5 9 - 21 % Interpretation - SEP HYPOALBUMINEMIA Pathologist Signature INTERPRETED BY TEA SHERWOOD M.D. By the PATH SIGNATURE ABOVE, I attest that I have personally formulated the final interpretation expressed in this report and that the above diagnosis is based upon my examination of the slides and/or other material indicated in this report. Specimen Performing Laboratory Blood [facility] [address] [place] [address] CREATININE-URINE RANDOM (04/08/2017 8:55 AM) Component Value Ref Range Creatinine, Random 35 MG/DL Specimen Performing Laboratory Urine [facility] [address] [place] [phone] SODIUM (04/08/2017 8:45 AM)Only the most recent of2 resultswithin the time period is included. Component Value Ref Range Sodium 150 (H) 137 - 147 MMOL/L Specimen Performing Laboratory Blood [facility] [address] [place] [address]85 CREATININE (04/08/2017 8:45 AM) Component Value Ref Range Creatinine 1.52 (H) 0.4 - 1.24 MG/DL eGFR Non 46 (L) >60 mL/min Comment: The eGFR is not validated for use in drug dosing adjustments.Continue to use estimated creatinine clearance per dosing reference text.Please contact the Clinical Pharmacist for questions. eGFR 56 (L) >60 mL/min Comment: The eGFR is not validated for use in drug dosing adjustments.Continue to use estimated creatinine clearance per dosing reference text.Please contact the Clinical Pharmacist for questions. Specimen Performing Laboratory Blood [facility] [address] [place] [id number] HEAD WO CONTRAST (04/08/2017 8:22 AM) Specimen Performing Laboratory [facility] RESULTS Addenda Addendum by Davon Recio MD on 04/08/2017 12:03 PM Finalized by Davon Recio MD on 04/08/2017 9:29 AM. Dictated by iRcky Goldberg M.D. on 04/08/2017 8:22 AM.Addendum: Findings were discussed with the stroke team to be relayed to the neuro ICU team at 9:03 AM on 04/08/2017 Approved by Ricky Goldberg M.D. on 04/08/2017 11:15 AM By my electronic signature, I attest that I have personally reviewed the images for this examination and formulated the interpretations and opinions expressed in this report Finalized by Davon Recio MD on 04/08/2017 12:00 PM. Dictated by Ricky Goldberg M.D. on 04/08/2017 11:14 AM. Impressions 1.Increasing conspicuity of left lateral frontal loss of iglesias-white differentiation, consistent with evolving infarct. 2.Focal loss of iglesias-white differentiation in the anterior medial left frontal lobe; consistent with LEONARD distribution ischemia / infarct. 3.Probable attenuation in the left cerebellar hemisphere; age-indeterminate injury. Approved by Ricky Goldberg M.D. on 04/08/2017 8:49 AM By my electronic signature, I attest that I have personally reviewed the images for this examination and formulated the interpretations and opinions expressed in this report Narrative EXAM: CT HEAD HISTORY: 66-year-old male with stroke, aphasia. TECHNIQUE: Multiple contiguous axial images were obtained of the brain without intravenous contrast. COMPARISON: CT head neck perfusion April 07, 2017 FINDINGS: The ventricles and subarachnoid spaces are normal in size and configuration. Increase in conspicuity of focal loss of iglesias-white matter differentiation in the left lateral frontal lobe. There has been development of focal loss of iglesias-white matter interface in the anterior mid left frontal lobe (series 2, image 37-38). There is also a possible focal area of low attenuation left cerebellum which may represent an age-indeterminate infarct (series 2, image 23). There is no midline shift or mass effect. There is no evidence of acute intracranial hemorrhage. Incidental note is made of bilateral lens implants. Procedure Note Interface, Radiant Results - 04/08/2017 12:03 PM [employer] ATTENDANT EXAM: CT HEAD HISTORY: 66-year-old male with stroke, aphasia. TECHNIQUE: Multiple contiguous axial images were obtained of the brain without intravenous contrast. COMPARISON: CT head neck perfusion April 07, 2017 FINDINGS: The ventricles and subarachnoid spaces are normal in size and configuration. Increase in conspicuity of focal loss of iglesias-white matter differentiation in the left lateral frontal lobe. There has been development of focal loss of iglesias-white matter interface in the anterior mid left frontal lobe (series 2, image 37-38). There is also a possible focal area of low attenuation left cerebellum which may represent an age-indeterminate infarct (series 2, image 23). There is no midline shift or mass effect. There is no evidence of acute intracranial hemorrhage. Incidental note is made of bilateral lens implants. IMPRESSION 1. Increasing conspicuity of left lateral frontal loss of iglesias-white differentiation, consistent with evolving infarct. 2. Focal loss of iglesias-white differentiation in the anterior medial left frontal lobe; consistent with LEONARD distribution ischemia / infarct. 3. Probable attenuation in the left cerebellar hemisphere; age-indeterminate injury. Approved by Ricky Goldberg M.D. on 04/08/2017 8:49 AM By my electronic signature, I attest that I have personally reviewed the images for this examination and formulated the interpretations and opinions expressed in this report 25-OH VITAMIN D (D2 + D3) (04/08/2017 6:45 AM) Component Value Ref Range Vitamin D(25-OH)Total 25.6 (L) 30 - 80 NG/ML Specimen Performing Laboratory Blood MAIN LAB [address] [place] [address] 1,25 DIHYDROXY VITAMIN D (04/08/2017 6:45 AM) Component Value Ref Range Vitamin D (1,25) 7.0 (L) 19.9 - 79.3 pg/mL Specimen Performing Laboratory Blood MAIN LAB [address] [place] [address] PTH RELATED PEPTIDE (04/08/2017 6:45 AM) Component Value Ref Range PTH Related Peptide 0.7 Comment: Reference range: <2.0 Unit: pmol/L ADDITIONAL INFORMATION This test was developed and its performance characteristics determined by [facility] in a manner consistent with CLIA requirements. This test has not been cleared or approved by the U.S. Food and Drug Administration. [facility], [address] [facility], [place] [address] Specimen Performing Laboratory Blood REFERENCE LAB TROPONIN-I (04/08/2017 2:50 AM)Only the most recent of3 resultswithin the time period is included. Component Value Ref Range Troponin-I 0.10 (H) 0.0 - 0.05 NG/ML Specimen Performing Laboratory Blood [facility] MAIN LAB [address] [place] [address] ALT (SGPT) (04/08/2017 2:50 AM) Component Value Ref Range ALT (SGPT) 14 7 - 56 U/L Specimen Performing Laboratory MAIN LAB [address] [place] [address] AST (SGOT) (04/08/2017 2:50 AM) Component Value Ref Range AST (SGOT) 33 7 - 40 U/L Specimen Performing Laboratory MAIN LAB [address] [place] [address] BILIRUBIN,TOTAL (04/08/2017 2:50 AM) Component Value Ref Range Total Bilirubin 0.5 0.3 - 1.2 MG/DL Specimen Performing Laboratory MAIN LAB [address] [place] [address] LIPID PROFILE (04/08/2017 2:50 AM) Component Value Ref Range Cholesterol 102 <200 MG/DL Triglycerides 248 (H) <150 MG/DL HDL 26 (L) >40 MG/DL LDL 42 <100 MG/DL VLDL 50 MG/DL Non HDL Cholesterol 76 MG/DL Comment: Calculated non-HDL Cholesterol (non-HDL-C) indirectly measures LDL-C, Lp(a), IDL-C, and VLDL-C.It is a surrogate marker for Apoprotein B.Goal should be less than 130 mg/dL. Specimen Performing Laboratory Blood MAIN LAB [address] [place] [address] ABDOMEN AP ONLY (04/07/2017 6:59 PM) Specimen Performing Laboratory [facility] RAD RESULTS Impressions Antral or pyloric position of the enteric tube. No radiographic evidence bowel obstruction. Calcification projected over the level pole of the right kidney which may represent a renal calculus. Finalized by Pete Murry M.D. on 04/08/2017 10:37 AM. Dictated by Pete Murry M.D. on 04/08/2017 10:36 AM. Narrative PostFeeding Tube Placement. Technique: Single portable AP supine view of the abdomen was obtained. Comparison: No prior examinations are available.. Findings: The bowel gas pattern is nonobstructive. There is an enteric tube with its tip in the region of the distal antrum or pylorus. The introducing stylette remains within the lumen of the tube. Surgical clips are present in the right upper quadrant. Posterior pedicle screws and spinal fixation hardware are noted. Disc implants are present at L3-4 and L4-L5. Posterior bone graft material is also seen is levels. There is a radiopacity projected over the lower pole of the right kidney. Procedure Note Interface, Radiant Results - 04/08/2017 10:41 AM [employer] ATTENDANT Post Feeding Tube Placement. Technique: Single portable AP supine view of the abdomen was obtained. Comparison: No prior examinations are available.. Findings: The bowel gas pattern is nonobstructive. There is an enteric tube with its tip in the region of the distal antrum or pylorus. The introducing stylette remains within the lumen of the tube. Surgical clips are present in the right upper quadrant. Posterior pedicle screws and spinal fixation hardware are noted. Disc implants are present at L3-4 and L4-L5. Posterior bone graft material is also seen is levels. There is a radiopacity projected over the lower pole of the right kidney. IMPRESSION Antral or pyloric position of the enteric tube. No radiographic evidence bowel obstruction. Calcification projected over the level pole of the right kidney which may represent a renal calculus. Finalized by Pete Murry M.D. on 04/08/2017 10:37 AM. Dictated by Pete Murry M.D. on 04/08/2017 10:36 AM. LEGIONELLA ANTIGEN URINE,RAN (04/07/2017 6:09 PM) Component Value Ref Range Battery Name LEGIONELLA URINE ANTIGEN Specimen Description URINE Special Requests NONE Antigen NEGATIVE Report Status FINAL 04/08/2017 Specimen Performing Laboratory Urine [facility] MAIN [facility] [address] [place] [address] CSF TUBE VOLUMES (04/07/2017 5:20 PM) Component Value Ref Range CSF Tube 1 3.5 mL CSF Tube 2 3.0 mL CSF Tube 3 3.0 mL CSF Tube 4 3.5 mL Specimen Performing Laboratory [facility] LAB RESULTS LAWRENCE JOHNSON QNT CSF (04/07/2017 5:20 PM) Component Value Ref Range EBV CSF Quant Not Detected Unit: IU/mL Assay Range: 52 IU/mL to 1.24b58p7 IU/mL Expected Value: Not Detected- As of June 08, 2012 results for quantitative EBV testing are resulted in International Units (IU).-One IU is equal to 0.59 copies of EBV. The limit of quantitation (LOQ) is 52 IU/mL.- EBV DNA detected below the LOQ will be reported as Detected: <52 IU/mL. This test was developed and its performance characteristics determined by [facility]. It has not been cleared or approved by the U.S. Food and Drug Administration.-Results should be used in conjunction with clinical findings, and should not form the sole basis for a diagnosis or treatment decision.- PCR tests are performed pursuant to a license agreement with [employer]. Testing Performed At: [facility] [address] [place], [place] [id number] CLIA ID: [id number] Specimen Performing Laboratory Cerebrospinal Fluid REFERENCE LAB VARICELLA ZOSTER PCR CSF (04/07/2017 5:20 PM) Component Value Ref Range Varicella Zoster CSF PCR Not Detected Unit: DNA copies/ml Assay Range: 251 copies/mL to [id number] copies/mL Expected Value: Not Detected- The limit of quantitation (LOQ) is 251 copies/mL.- VZV DNA detected below the LOQ will be reported as Detected: <251 copies/mL. This test was developed and its performance characteristics determined by [facility]. It has not been cleared or approved by the U.S. Food and Drug Administration.-Results should be used in conjunction with clinical findings, and should not form the sole basis for a diagnosis or treatment decision.- PCR tests are performed pursuant to a license agreement with [employer]. Testing Performed At: [facility] [address] CLIA ID: [id number] Specimen Performing Laboratory Cerebrospinal Fluid REFERENCE LAB HERPES SIMPLEX PCR - NON-BLOOD (04/07/2017 5:20 PM) Component Value Ref Range Specimen, Herpes CSF Herpes Simplex PCR HSV 1 and 2 NOT DETECTED Aditive HSV 1&2 Assay is a qualitative real-time PCR test for the direct detection and differentiation of HSV 1 and 2 DNA. This assay is FDA approved for testing cutaneous or mucocutaneous lesions from symptomatic patients. Performance on modifications of this test as well as other specimen types has been validated by the Department of Pathology and Laboratory Medicine at the [facility]. Specimen Performing Laboratory Cerebrospinal Fluid [facility] [address] [place] [address] CULTURE-CSF W/SENSITIVITY (04/07/2017 5:20 PM) Component Value Ref Range Battery Name CSF CULTURE Specimen Description CSF Special Requests NONE Direct Gram Stain NO NEUTROPHILS SEEN RARE RBC'S NO ORGANISMS SEEN Culture NO GROWTH 3 DAYS Report Status FINAL 04/10/2017 Specimen Performing Laboratory Cerebrospinal fluid - Cerebrospinal Fluid [facility] [address] [place] [address] CMV QUANT PCR-FLUID (04/07/2017 5:20 PM) Component Value Ref Range Specimen, CMV CSF CMV by PCR-fluid CMV DNA NOT DETECTED CMV Comment-Fluid This assay is an off label use of the Lozano RealTime Assay for detection of CMV in fluids and has not been approved by the US Food and Drug Administration. The performance characteristics were determined by the [facility].The lower limit of detection is 50IU/mL. Specimen Performing Laboratory Fluid - Cerebrospinal Fluid [facility] [address] [place] [address] 2-D + DOPPLER ECHOCARDIOGRAM (04/07/2017 4:50 PM) Component Value Ref Range IVS 1.26 0.6 - 1.0 cm LVIDD 4.71 4.2 - 5.9 cm LVIDS 3.13 cm PW 1.24 0.6 - 1.0 cm TDI e' 0.17 m/s LA size 3.61 3.0 - 4.0 cm LA volume 43.47 18 - 58 mL AV peak velocity 0.96 m/s MV Peak E Gabe PW 1.07 m/s Right Heart Systolic Mmode TAPSE 2.20 cm Sinus 3.62 2.1 - 3.5 cm BSA 2.31 m2 FS 33.55 28 - 44 % EF 57.04 % Left Atrium Index 18.82 10 - 32 E/E' ratio 6.29 CV ECHO PV MOLDER SETTER Jt Taylor RN TV rest pulmonary artery pressure n/a mmHg Specimen Performing Laboratory OTHER OUTSIDE LAB Narrative 1. There is limited endocardial definition even with the use of left ventricular contrast. Review of the contrast images show no diagnostic regional wall motion abnormalities. Overall LV systolic function appears normal. The estimated left ventricular ejection fraction appears to be in the range of 55-60%. 2. There is mild concentric left ventricular hypertrophy. 3. Limited views suggest normal or dynamic right ventricular systolic function and normal right ventricular size. 4. Normal atrial dimensions. 5. There is no evidence of significant valvular regurgitation or stenosis by doppler exam. 6. No pericardial effusion is seen. 7. No diagnostic intra-cardiac shunting. 8. No intracardiac thrombus is seen.However, this does not exclude the presence of intracardiac thrombus. LACTIC ACID (BG - RAPID LACTATE) (04/07/2017 3:45 PM)Only the most recent of2 resultswithin the time period is included. Component Value Ref Range Lactic Acid,BG 1.8 0.5 - 2.0 MMOL/L Specimen Performing Laboratory Blood MAIN LAB [address] [place] [address] TSH WITH FREE T4 REFLEX (04/07/2017 3:35 PM) Component Value Ref Range TSH 0.833 0.35 - 5.00 MCU/ML Specimen Performing Laboratory Blood MAIN LAB [address] [place] [address] PARATHYROID HORMONE (04/07/2017 3:35 PM) Component Value Ref Range PTH Hormone 8.3 (L) 10 - 65 PG/ML Specimen Performing Laboratory Blood MAIN LAB [address] [place] [address] CULTURE-BLOOD W/SENSITIVITY (04/07/2017 12:32 PM)Only the most recent of2 resultswithin the time period is included. Component Value Ref Range Battery Name BLOOD CULTURE Specimen Description BLOOD RIGHT UPPER ARM Special Requests NONE Culture NO GROWTH 5 DAYS Report Status FINAL 04/13/2017 Specimen Performing Laboratory Blood MAIN LAB [address] [place] [address] PTT (APTT) (04/07/2017 12:29 PM) Component Value Ref Range APTT 23.5 21.0 - 39.0 SEC Specimen Performing Laboratory Blood MAIN LAB [address] [place] [address] PROTIME INR (PT) (04/07/2017 12:29 PM) Component Value Ref Range INR 1.2 0.8 - 1.2 Specimen Performing Laboratory Blood MAIN LAB [address] [place] [address] HEMOGLOBIN A1C (04/07/2017 12:29 PM) Component Value Ref Range Hemoglobin A1C 7.0 (H) 4.0 - 6.0 % Comment: The ADA recommends that most patients with type 1 and type 2 diabetes maintain an A1c level <7%. Specimen Performing Laboratory Blood MAIN LAB [address] [place] [address] POC BLOOD GAS ARTERIAL (04/07/2017 11:59 AM) Component Value Ref Range PH-ART-POC 7.46 (H) 7.35 - 7.45 [id number] 43 35 - 45 MMHG PO2-ART-POC 61 (L) 80 - 100 MMHG Base Ex-ART-POC 7.0 MMOL/L O2 Sat-ART-POC 92.0 (L) 95 - 99 % [id number] 30.6 (H) 21 - 28 MMOL/L Specimen Performing Laboratory MAIN LAB [address] [place] [address] POC SODIUM (04/07/2017 11:59 AM) Component Value Ref Range Sodium-POC 144 137 - 147 MMOL/L Specimen Performing Laboratory MAIN LAB [address] [place] [address] POC POTASSIUM (04/07/2017 11:59 AM) Component Value Ref Range Potassium-POC 2.7 (LL) 3.5 - 5.1 MMOL/L Specimen Performing Laboratory MAIN LAB [address] [place] [address] POC IONIZED CALCIUM (04/07/2017 11:59 AM) Component Value Ref Range Ionized Calcium-POC 1.79 (H) 1.0 - 1.3 MMOL/L Specimen Performing Laboratory [facility] MAIN [facility] [address] [place] [address] POC HEMATOCRIT (04/07/2017 11:59 AM) Component Value Ref Range Hemoglobin POC 10.9 (L) 13.5 - 16.5 GM/DL Hematocrit POC 32.0 (L) 40 - 50 % Specimen Performing Laboratory [facility] MAIN LAB [address] [place] [address] CT BRAIN PERF (04/07/2017 10:49 AM) Specimen Performing Laboratory [facility] RAD RESULTS Impressions CTA head: 1.Unchanged focal loss of left lateral frontal iglesias right differentiation likely due to recent infarct. 2.Atherosclerotic plaque involving the bilateral cavernous internal carotid arteries and left vertebral artery without significant narrowing. 3.Paucity of peripheral vascular opacification in the left frontal lobe without obvious occlusion. CTA neck: 1.Minimal atherosclerotic plaque at the origin of the right internal carotid artery with widely patent carotid and vertebral arteries. 2.Confluent soft tissue thickening in the right hilum and adjacent mediastinum incompletely evaluated. This may represent adenopathy or a mass lesion. Consider CT chest for further characterization. 3.Right pleural effusion. 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 CT perfusion: Motion limited perfusion with small matched defect in the left anterolateral frontal lobe suggestive of completed infarct. CTA head and CT perfusion findings were discussed with the stroke neurology team in person at 11:10 AM on 04/07/2017. Approved by Ricky Goldberg M.D. on 04/07/2017 11:19 AM By my electronic signature, I attest that I have personally reviewed the images for this examination and formulated the interpretations and opinions expressed in this report Finalized by CODI OSULLIVAN M.D. on 04/07/2017 12:00 PM. Dictated by Ricky Goldberg M.D. on 04/07/2017 10:59 AM. Narrative EXAM: CTA HEAD AND NECK, CTA BRAIN PERFUSION HISTORY: , aphasia, TECHNIQUE: Multiple contiguous axial images were obtained of the brain and neck following the administration of IV contrast. CTA maximum density projection images were obtained of the brain and neck with image post processing.Perfusion imaging was also obtained with CBV, MTT, TTD, and CBF mapping. COMPARISON:External CT head April 07, 2017 at 4:00 AM FINDINGS: CTA head: The ventricles and subarachnoid spaces are normal in size and configuration. There is focal loss of iglesias-white matter differentiation in the left lateral frontal lobe, similar to the outside examination. There is no midline shift or mass effect. There is no evidence of acute intracranial hemorrhage. The basal cisterns are patent. The calvarium is intact. There is minimal atherosclerotic calcification of the cavernous internal carotid arteries without significant narrowing. The bilateral middle and anterior cerebral arteries are widely patent. There is decreased peripheral vasculature in the left frontal lobe. There is mild atherosclerotic plaque involving the proximal left vertebral artery without narrowing. The small vertebral and basilar arteries are widely patent. The bilateral posterior cerebral arteries are patent with large posterior communicating arteries. No aneurysm or vascular malformation. CTA neck: The aortic arch vessel origins are widely patent. There is minimal atherosclerotic plaque at the origin of the right internal carotid artery. The common carotid and cervical portions of the internal carotid and vertebral arteries are otherwise patent without focal narrowing according to NASCET criteria. No aneurysm, AVM, or dissection is identified. There is no cervical soft tissue mass or lymphadenopathy. 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 There is mild right maxillary mucosal thickening. There is a right pleural effusion and adjacent atelectasis there is ill-defined confluent soft tissue thickening of the right hilum and inferior mediastinum. CT Perfusion: Perfusion imaging is limited by repetitive patient motion with a matched defect in the left anterolateral frontal lobe. Procedure Note Interface, Radiant Results - 04/07/2017 12:03 PM [employer] ATTENDANT EXAM: CTA HEAD AND NECK, CTA BRAIN PERFUSION HISTORY: , aphasia, TECHNIQUE: Multiple contiguous axial images were obtained of the brain and neck following the administration of IV contrast. CTA maximum density projection images were obtained of the brain and neck with image post processing. Perfusion imaging was also obtained with CBV, MTT, TTD, and CBF mapping. COMPARISON:External CT head April 07, 2017 at 4:00 AM FINDINGS: CTA head: The ventricles and subarachnoid spaces are normal in size and configuration. There is focal loss of iglesias-white matter differentiation in the left lateral frontal lobe, similar to the outside examination. There is no midline shift or mass effect. There is no evidence of acute intracranial hemorrhage. The basal cisterns are patent. The calvarium is intact. There is minimal atherosclerotic calcification of the cavernous internal carotid arteries without significant narrowing. The bilateral middle and anterior cerebral arteries are widely patent. There is decreased peripheral vasculature in the left frontal lobe. There is mild atherosclerotic plaque involving the proximal left vertebral artery without narrowing. The small vertebral and basilar arteries are widely patent. The bilateral posterior cerebral arteries are patent with large posterior communicating arteries. No aneurysm or vascular malformation. CTA neck: The aortic arch vessel origins are widely patent. There is minimal atherosclerotic plaque at the origin of the right internal carotid artery. The common carotid and cervical portions of the internal carotid and vertebral arteries are otherwise patent without focal narrowing according to NASCET criteria. No aneurysm, AVM, or dissection is identified. There is no cervical soft tissue mass or lymphadenopathy. 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 There is mild right maxillary mucosal thickening. There is a right pleural effusion and adjacent atelectasis there is ill-defined confluent soft tissue thickening of the right hilum and inferior mediastinum. CT Perfusion: Perfusion imaging is limited by repetitive patient motion with a matched defect in the left anterolateral frontal lobe. IMPRESSION CTA head: 1. 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 2. Atherosclerotic plaque involving the bilateral cavernous internal carotid arteries and left vertebral artery without significant narrowing. 3. Paucity of peripheral vascular opacification in the left frontal lobe without obvious occlusion. CTA neck: 1. Minimal atherosclerotic plaque at the origin of the right internal carotid artery with widely patent carotid and vertebral arteries. 2. Confluent soft tissue thickening in the right hilum and adjacent mediastinum incompletely evaluated. This may represent adenopathy or a mass lesion. Consider CT chest for further characterization. 3. Right pleural effusion. 4. 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 CT perfusion: Motion limited perfusion with small matched defect in the left anterolateral frontal lobe suggestive of completed infarct. CTA head and CT perfusion findings were discussed with the stroke neurology team in person at 11:10 AM on 04/07/2017. Approved by Ricky Goldberg M.D. on 04/07/2017 11:19 AM By my electronic signature, I attest that I have personally reviewed the images for this examination and formulated the interpretations and opinions expressed in this report Finalized by CODI OSULLIVAN M.D. on 04/07/2017 12:00 PM. Dictated by Ricky Glodberg M.D. on 04/07/2017 10:59 AM. CTA NECK WO/W CONTRAST+POST P (04/07/2017 10:49 AM) Specimen Performing Laboratory [facility] RAD RESULTS Impressions CTA head: 1.Unchanged focal loss of left lateral frontal iglesias right differentiation likely due to recent infarct. 2.Atherosclerotic plaque involving the bilateral cavernous internal carotid arteries and left vertebral artery without significant narrowing. 3.Paucity of peripheral vascular opacification in the left frontal lobe without obvious occlusion. CTA neck: 1.Minimal atherosclerotic plaque at the origin of the right internal carotid artery with widely patent carotid and vertebral arteries. 2.Confluent soft tissue thickening in the right hilum and adjacent mediastinum incompletely evaluated. This may represent adenopathy or a mass lesion. Consider CT chest for further characterization. 3.Right pleural effusion. 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 CT perfusion: Motion limited perfusion with small matched defect in the left anterolateral frontal lobe suggestive of completed infarct. CTA head and CT perfusion findings were discussed with the stroke neurology team in person at 11:10 AM on 04/07/2017. Approved by Ricky Goldberg M.D. on 04/07/2017 11:19 AM By my electronic signature, I attest that I have personally reviewed the images for this examination and formulated the interpretations and opinions expressed in this report Finalized by CODI OSULLIVAN M.D. on 04/07/2017 12:00 PM. Dictated by Ricky Goldberg M.D. on 04/07/2017 10:59 AM. Narrative EXAM: CTA HEAD AND NECK, CTA BRAIN PERFUSION HISTORY: , aphasia, TECHNIQUE: Multiple contiguous axial images were obtained of the brain and neck following the administration of IV contrast. CTA maximum density projection images were obtained of the brain and neck with image post processing.Perfusion imaging was also obtained with CBV, MTT, TTD, and CBF mapping. COMPARISON:External CT head April 07, 2017 at 4:00 AM FINDINGS: CTA head: The ventricles and subarachnoid spaces are normal in size and configuration. There is focal loss of iglesias-white matter differentiation in the left lateral frontal lobe, similar to the outside examination. There is no midline shift or mass effect. There is no evidence of acute intracranial hemorrhage. The basal cisterns are patent. The calvarium is intact. There is minimal atherosclerotic calcification of the cavernous internal carotid arteries without significant narrowing. The bilateral middle and anterior cerebral arteries are widely patent. There is decreased peripheral vasculature in the left frontal lobe. There is mild atherosclerotic plaque involving the proximal left vertebral artery without narrowing. The small vertebral and basilar arteries are widely patent. The bilateral posterior cerebral arteries are patent with large posterior communicating arteries. No aneurysm or vascular malformation. CTA neck: The aortic arch vessel origins are widely patent. There is minimal atherosclerotic plaque at the origin of the right internal carotid artery. The common carotid and cervical portions of the internal carotid and vertebral arteries are otherwise patent without focal narrowing according to NASCET criteria. No aneurysm, AVM, or dissection is identified. There is no cervical soft tissue mass or lymphadenopathy. 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 There is mild right maxillary mucosal thickening. There is a right pleural effusion and adjacent atelectasis there is ill-defined confluent soft tissue thickening of the right hilum and inferior mediastinum. CT Perfusion: Perfusion imaging is limited by repetitive patient motion with a matched defect in the left anterolateral frontal lobe. Procedure Note Interface, Radiant Results - 04/07/2017 12:03 PM [employer] EXAM: CTA HEAD AND NECK, CTA BRAIN PERFUSION HISTORY: , aphasia, TECHNIQUE: Multiple contiguous axial images were obtained of the brain and neck following the administration of IV contrast. CTA maximum density projection images were obtained of the brain and neck with image post processing. Perfusion imaging was also obtained with CBV, MTT, TTD, and CBF mapping. COMPARISON:External CT head April 07, 2017 at 4:00 AM FINDINGS: CTA head: The ventricles and subarachnoid spaces are normal in size and configuration. There is focal loss of iglesias-white matter differentiation in the left lateral frontal lobe, similar to the outside examination. There is no midline shift or mass effect. There is no evidence of acute intracranial hemorrhage. The basal cisterns are patent. The calvarium is intact. There is minimal atherosclerotic calcification of the cavernous internal carotid arteries without significant narrowing. The bilateral middle and anterior cerebral arteries are widely patent. There is decreased peripheral vasculature in the left frontal lobe. There is mild atherosclerotic plaque involving the proximal left vertebral artery without narrowing. The small vertebral and basilar arteries are widely patent. The bilateral posterior cerebral arteries are patent with large posterior communicating arteries. No aneurysm or vascular malformation. CTA neck: The aortic arch vessel origins are widely patent. There is minimal atherosclerotic plaque at the origin of the right internal carotid artery. The common carotid and cervical portions of the internal carotid and vertebral arteries are otherwise patent without focal narrowing according to NASCET criteria. No aneurysm, AVM, or dissection is identified. There is no cervical soft tissue mass or lymphadenopathy. 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 There is mild right maxillary mucosal thickening. There is a right pleural effusion and adjacent atelectasis there is ill-defined confluent soft tissue thickening of the right hilum and inferior mediastinum. CT Perfusion: Perfusion imaging is limited by repetitive patient motion with a matched defect in the left anterolateral frontal lobe. IMPRESSION CTA head: 1. 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 2. Atherosclerotic plaque involving the bilateral cavernous internal carotid arteries and left vertebral artery without significant narrowing. 3. Paucity of peripheral vascular opacification in the left frontal lobe without obvious occlusion. CTA neck: 1. Minimal atherosclerotic plaque at the origin of the right internal carotid artery with widely patent carotid and vertebral arteries. 2. Confluent soft tissue thickening in the right hilum and adjacent mediastinum incompletely evaluated. This may represent adenopathy or a mass lesion. Consider CT chest for further characterization. 3. Right pleural effusion. 4. 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 CT perfusion: Motion limited perfusion with small matched defect in the left anterolateral frontal lobe suggestive of completed infarct. CTA head and CT perfusion findings were discussed with the stroke neurology team in person at 11:10 AM on 04/07/2017. Approved by Ricky Goldberg M.D. on 04/07/2017 11:19 AM By my electronic signature, I attest that I have personally reviewed the images for this examination and formulated the interpretations and opinions expressed in this report Finalized by CODI OSULLIVAN M.D. on 04/07/2017 12:00 PM. Dictated by Ricky Goldberg M.D. on 04/07/2017 10:59 AM. 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 2.Atherosclerotic plaque involving the bilateral cavernous internal carotid arteries and left vertebral artery without significant narrowing. 3.Paucity of peripheral vascular opacification in the left frontal lobe without obvious occlusion. CTA neck: 1.Minimal atherosclerotic plaque at the origin of the right internal carotid artery with widely patent carotid and vertebral arteries. 2.Confluent soft tissue thickening in the right hilum and adjacent mediastinum incompletely evaluated. This may represent adenopathy or a mass lesion. Consider CT chest for further characterization. 3.Right pleural effusion. 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 CT perfusion: Motion limited perfusion with small matched defect in the left anterolateral frontal lobe suggestive of completed infarct. CTA head and CT perfusion findings were discussed with the stroke neurology team in person at 11:10 AM on 04/07/2017. Approved by iRcky Goldberg M.D. on 04/07/2017 11:19 AM By my electronic signature, I attest that I have personally reviewed the images for this examination and formulated the interpretations and opinions expressed in this report Finalized by CODI OSULLIVAN M.D. on 04/07/2017 12:00 PM. Dictated by Ricky Goldberg M.D. on 04/07/2017 10:59 AM. Narrative EXAM: CTA HEAD AND NECK, CTA BRAIN PERFUSION HISTORY: , aphasia, TECHNIQUE: Multiple contiguous axial images were obtained of the brain and neck following the administration of IV contrast. CTA maximum density projection images were obtained of the brain and neck with image post processing.Perfusion imaging was also obtained with CBV, MTT, TTD, and CBF mapping. COMPARISON:External CT head April 07, 2017 at 4:00 AM FINDINGS: CTA head: The ventricles and subarachnoid spaces are normal in size and configuration. There is focal loss of iglesias-white matter differentiation in the left lateral frontal lobe, similar to the outside examination. There is no midline shift or mass effect. There is no evidence of acute intracranial hemorrhage. The basal cisterns are patent. The calvarium is intact. There is minimal atherosclerotic calcification of the cavernous internal carotid arteries without significant narrowing. The bilateral middle and anterior cerebral arteries are widely patent. There is decreased peripheral vasculature in the left frontal lobe. There is mild atherosclerotic plaque involving the proximal left vertebral artery without narrowing. The small vertebral and basilar arteries are widely patent. The bilateral posterior cerebral arteries are patent with large posterior communicating arteries. No aneurysm or vascular malformation. CTA neck: The aortic arch vessel origins are widely patent. There is minimal atherosclerotic plaque at the origin of the right internal carotid artery. The common carotid and cervical portions of the internal carotid and vertebral arteries are otherwise patent without focal narrowing according to NASCET criteria. No aneurysm, AVM, or dissection is identified. There is no cervical soft tissue mass or lymphadenopathy. 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 There is mild right maxillary mucosal thickening. There is a right pleural effusion and adjacent atelectasis there is ill-defined confluent soft tissue thickening of the right hilum and inferior mediastinum. CT Perfusion: Perfusion imaging is limited by repetitive patient motion with a matched defect in the left anterolateral frontal lobe. Procedure Note Interface, Radiant Results - 04/07/2017 12:03 PM [employer] EXAM: CTA HEAD AND NECK, CTA BRAIN PERFUSION HISTORY: , aphasia, TECHNIQUE: Multiple contiguous axial images were obtained of the brain and neck following the administration of IV contrast. CTA maximum density projection images were obtained of the brain and neck with image post processing. Perfusion imaging was also obtained with CBV, MTT, TTD, and CBF mapping. COMPARISON:External CT head April 07, 2017 at 4:00 AM FINDINGS: CTA head: The ventricles and subarachnoid spaces are normal in size and configuration. There is focal loss of iglesias-white matter differentiation in the left lateral frontal lobe, similar to the outside examination. There is no midline shift or mass effect. There is no evidence of acute intracranial hemorrhage. The basal cisterns are patent. The calvarium is intact. There is minimal atherosclerotic calcification of the cavernous internal carotid arteries without significant narrowing. The bilateral middle and anterior cerebral arteries are widely patent. There is decreased peripheral vasculature in the left frontal lobe. There is mild atherosclerotic plaque involving the proximal left vertebral artery without narrowing. The small vertebral and basilar arteries are widely patent. The bilateral posterior cerebral arteries are patent with large posterior communicating arteries. No aneurysm or vascular malformation. CTA neck: The aortic arch vessel origins are widely patent. There is minimal atherosclerotic plaque at the origin of the right internal carotid artery. The common carotid and cervical portions of the internal carotid and vertebral arteries are otherwise patent without focal narrowing according to NASCET criteria. No aneurysm, AVM, or dissection is identified. There is no cervical soft tissue mass or lymphadenopathy. 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 There is mild right maxillary mucosal thickening. There is a right pleural effusion and adjacent atelectasis there is ill-defined confluent soft tissue thickening of the right hilum and inferior mediastinum. CT Perfusion: Perfusion imaging is limited by repetitive patient motion with a matched defect in the left anterolateral frontal lobe. IMPRESSION CTA head: 1. 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 2. Atherosclerotic plaque involving the bilateral cavernous internal carotid arteries and left vertebral artery without significant narrowing. 3. Paucity of peripheral vascular opacification in the left frontal lobe without obvious occlusion. CTA neck: 1. Minimal atherosclerotic plaque at the origin of the right internal carotid artery with widely patent carotid and vertebral arteries. 2. Confluent soft tissue thickening in the right hilum and adjacent mediastinum incompletely evaluated. This may represent adenopathy or a mass lesion. Consider CT chest for further characterization. 3. Right pleural effusion. 4. 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 CT perfusion: Motion limited perfusion with small matched defect in the left anterolateral frontal lobe suggestive of completed infarct. CTA head and CT perfusion findings were discussed with the stroke neurology team in person at 11:10 AM on 04/07/2017. Approved by Ricky Goldberg M.D. on 04/07/2017 11:19 AM By my electronic signature, I attest that I have personally reviewed the images for this examination and formulated the interpretations and opinions expressed in this report Finalized by CODI OSULLIVAN M.D. on 04/07/2017 12:00 PM. Dictated by Ricky Goldberg M.D. on 04/07/2017 10:[address] HEAD EXTERNAL IMAGING (04/07/2017 12:15 AM) Narrative This order has been auto finalized and does not contain a result. GENERAL RAD CHEST EXTERNAL IMAGING (04/07/2017) Narrative This order has been auto finalized and does not contain a result. from Last 3 Months
--- OUTSIDE RECORDS SUMMARY | 2017-04-20 13:52 | External Medical Summary | Encounter Summary ---
:1950 Author Organization [facility] Address [address] [place] [address] Phone Care Team Providers Name Role Phone Chad Flores MD Primary Care Provider Reason for Visit Auth/Cert Status Reason Specialty Diagnoses / Procedures Referred By Contact Referred To Contact Diagnoses stroke - sub acute infarct Aphasia Encounter Details Date Type Department Care Team Description 04/08/2017 Anesthesia [facility] Radiology [address] [place], [place] [id number] Anesthesia Record Procedure Summary Procedure Name Responsible Anesthesia Start Anesthesia Stop Anesthesiologist Time Time IR PERCUTANEOUS BIOPSY Barrera Etienne MD 04/11/17 1158 04/11/17 1330 Events Date Time Event Comment 04/11/2017 1110 AN Equip Check 1158 Anes Start 1158 An Start Data 1209 An Induction The patient was reevaluated immediately before moderate or deep sedation use and before anesthesia induction. 1213 An Intubation 1217 Anesthesia Ready 1237 Proc Start 1319 an stop data 1329 Handoff to RN I completed my SBAR handoff to the receiving nurse. 1330 An Stop Name Total fentaNYL PF (SUBLIMAZE) injection 100 mcg lidocaine (2%) 200 mg/10mL Injection syringe 80 mg propofol (DIPRIVAN) 200 mg/ 20 mL injection (VIAL) 200 mg rocuronium (ZEMURON) injection 50 mg ondansetron (ZOFRAN) injection 4 mg dexamethasone (DECADRON) 4 mg/mL injection 4 mg phenylephrine (YASHIRA-SYNEPHRINE) 0.1 mg/mL injection (SYRINGE) 400 mcg dexmedetomidine (PRECEDEX) 20 mcg/5 mL (4 mcg/mL) injection 8 mcg phenylephrine (YASHIRA-SYNEPHRINE) 10 mg in sodium chloride 0.9% (NS) 250 mL IV 5.35 mg drip (std conc) propofol (DIPRIVAN) infusion 211.74 mg esmolol (BREVIBLOC) 10 mg/mL injection 20 mg lactated ringers infusion (1000 mL bag) 600 mL Agents Name O2 N2O Inspired Air Sevoflurane Inspired Sevoflurane Blood No blood administrations on file. Lines, Drains, and Airways Type Details Placement Removal Peripheral IV 04/07/17; 1711; RN; R; 04/07/17 1711 by Forearm; 22 G Jt Costa RN ETT 04/08/17; 1253; 04/08/17 1253 by Ventilated by mask Iona Correa CRNA (1); Direct laryngoscopy, Stylet; Single-Lumen, Cuffed; 8mm; Mac; 4; Oral; 1-Full view of the glottis; 1 insertion attempt; Auscultation, ETCO2 Detector; 23 centimeters; atraumatic, dentition unchanged ETT 04/11/17; 1213; 04/11/17 1213 by Ventilated by mask Leighton Palmer SRNA with oral airway (2) (2 handed); Direct laryngoscopy, Stylet; Single-Lumen, Cuffed; 7.5mm; Mac; 4; Oral; 1-Full view of the glottis; 1 insertion attempt; Auscultation, ETCO2 Detector; 23 centimeters; Atraumatic intuabtion; dentition unchanged Wounds (NOT for Pressure 04/11/17; 1309; Back; 04/11/17 1309 by Injuries) Puncture Wound Hermila Sam RN Wounds (NOT for Pressure 04/11/17; 1310; Back; 04/11/17 1310 by Injuries) Puncture Wound Hermila Sam RN Indwelling Urinary 04/07/17 (placed at 04/07/17 0000 by 04/12/17 1131 by Catheter OSH ); (placed at OSH Jt Costa RN Rivera Ortiz, ); Present on PRESTON Nairscientific programmer analyst; 04/12/17; 1131 Peripheral IV 04/07/17; 1238; RN; R; 04/07/17 1238 by 04/12/17 0400 by Upper Arm; 20 G; Jt Costa, Arianna Barrera, 04/12/17; 0400 RN Nasoduodenal Tube 04/07/17; 1900; Left 04/07/17 1900 by 04/12/17 1600 by Nare; Yes; Nursing; Jt Costa, Lis Malik, Auscultation, X-ray; RN 2; 1; Air Bolus, Reposition Pt; 04/12/17; 1600 Peripheral IV 04/10/17; 1130; RN; L; 04/10/17 1130 by 04/12/17 0400 by Anterior; Forearm; 20 Ariadna Trejo, Arianna Barrera, G; 04/12/17; 0400 RN Endotracheal Tube 04/11/17; Oral; 7.5mm; 04/11/17 0000 by 04/11/17 1418 by Single-Lumen; Teodora Patten, RT Teodora Patten, Auscultation, ETCO2 RT Detector; 23 cm; 04/11/17; 1418 in this encounter Social History Tobacco Use Types Packs/Day Years Used Date Never Assessed Sex Assigned at Date Recorded Not on file as of this encounter Functional Status Functional Status Response Date of Assessment Does the patient have a hearing impairment: Yes 04/07/2017 as of this encounter OR Notes Anesthesia Postprocedure Evaluation - Barrera Etienne MD - 04/11/2017 1:31 PM CSTFormatting of this note may be different from the original. Post-Anesthesia Evaluation Name: Rohan Lombardi : 1950 Age: 66 y.o. Sex: male Procedure Date: 04/11/2017 Procedure: Biopsy bone lesion Surgeon: IVAN DUFFY Post-Anesthesia Vitals Reviewed and within acceptable limits Post Anesthesia Evaluation Note Evaluation location: ICU Patient participation: patient intubated, unable to assess; expectation of recovery by ICU physician Level of consciousness: intubated & sedated Pain management: adequate Hydration: normovolemia Temperature: 36.0C - 38.4C Airway patency: adequate Perioperative Events Perioperative events: no Post-op nausea and vomiting: no PONV Postoperative Status Cardiovascular status: hemodynamically stable Respiratory status: ETT Perioperative Events Perioperative Event: No Emergency Case Activation: No Ventilator settings: Mode: PSV FiO2: 100 Tidal volume: 550 ml Ventilatory rate: 26 breaths/min PEEP: 5 cm H2O Vasoactive Drips: Phenylephrine: 1.2 mcg/kg/min Blood products/Hemostatic Agents/Anticoagulants: N/A Special Considerations: N/A Patient was transported with supplemental oxygen and routine cardiovascular monitoring, including pulse oximetry. Individuals present during transport include Yunier Burns SRNA, IR RN. The patient was admitted to the ICU under care of the critical care team. This information was communicated between anesthesia and the receiving team. ATTESTATION Post-Anesthesia Evaluation and ICU Transfer Note Attestation: I evaluated the patient and the indicated post-anesthesia care is discharge and transfer to the ICU physician-lead team. Staff name: Barrera Etienne MD Date: 04/11/2017 Anesthesia Preprocedure Evaluation - Barrera Etienne MD - 04/11/2017 11:06 AM CSTFormatting of this note may be different from the original. Anesthesia Pre-Procedure Evaluation Name: Rohan Lombardi : 1950 Age: 66 y.o. Sex: male Procedure Date: 04/11/2017 Procedure: biopsy of bone lesion Physical Assessment Vital Signs (last filed in past 24 hours): BP: 140/85 (04/11 1000) Temp: 36.7 C (98.1 F) (04/11 0800) Pulse: 105 (04/11 0900) Respirations: 22 PER MINUTE (04/11 0800) SpO2: 98 % (04/11 09) O2 Delivery: Nasal Cannula (04/11 899) Weight: 101.8 kg (224 lb 6.9 oz) (04/11 0500) Patient History No Known Allergies Current Medications Medication Directions amlodipine-benazepril (LOTREL) 5-10 mg capsule Take 1 capsule by mouth daily. aspirin 325 mg tablet Take 325 mg by mouth daily. Take with food. atorvastatin (LIPITOR) 40 mg tablet Take 40 mg by mouth daily. gabapentin (NEURONTIN) 600 mg tablet Take 1,200 mg by mouth three times daily. HYDROcodone/acetaminophen(+) (NORCO) 10/325 mg tablet Take 1-2 tablets by mouth every 6 hours as needed for Pain metFORMIN (GLUCOPHAGE) 500 mg tablet Take 500 mg by mouth twice daily with meals. nitroglycerin (NITROSTAT) 0.[address] 0.3 mg under tongue every 5 minutes as needed for Chest Pain. sertraline (ZOLOFT) 100 mg tablet Take 100 mg by mouth daily. tamsulosin (FLOMAX) 0.4 mg capsule Take 0.4 mg by mouth daily. Do not crush, chew or open capsules. Take 30 minutes following the same meal each day. Review of Systems/Medical History Patient summary reviewed Nursing notes reviewed Pertinent labs reviewed No history of anesthetic complications Pulmonary Current smoker; patient did not smoke on day of surgery Pneumonia Cardiovascular Hypertension, Past OR, > 6 months Coronary artery disease PTCA GI/Hepatic/Renal Renal disease Electrolyte problem Hypercalcemia, hypernatremia Neuro/Psych CVA Encephalopathy Musculoskeletal Multiple lytic bone lesions Endocrine/Other Diabetes Lymphadenopathy Physical Exam Airway Findings Mallampati: III TM distance: >3 FB Neck ROM: limited Mouth opening: good Airway patency: adequate Cardiovascular Findings: Rhythm: irregular Rate: normal Pulmonary Findings: Rhonchi and decreased breath sounds. Neurological Findings: Altered mental status Diagnostic Tests Hematology: Lab Results Component Value Date HGB 11.8 04/11/2017 HCT 36.9 04/11/2017 PLTCT 205 04/11/2017 WBC 20.6 04/11/2017 NEUT 93 04/11/2017 ANC 19.10 04/11/2017 ALC 1.00 04/11/2017 EMILY 2 04/11/2017 AMC 0.40 04/11/2017 EOSA 0 04/11/2017 ABC 0.00 04/11/2017 MCV 93.4 04/11/2017 MCH 29.8 04/11/2017 MCHC 31.9 04/11/2017 MPV 8.8 04/11/2017 RDW 14.6 04/11/2017 General Chemistry: Lab Results Component Value Date NA 154 04/11/2017 K 4.1 04/11/2017 CL 123 04/11/2017 CO2 20 04/11/2017 GAP 11 04/11/2017 BUN 44 04/11/2017 CR 1.56 04/11/2017 GLU 179 04/11/2017 CA 10.0 04/11/2017 ALBUMIN 3.4 04/10/2017 OBSCA 1.36 04/11/2017 MG 2.0 04/11/2017 TOTBILI 0.5 04/08/2017 PO4 1.0 04/11/2017 Coagulation: Lab Results Component Value Date PTT 23.5 04/07/2017 INR 1.2 04/07/2017 Anesthesia Plan ASA score: 4 Plan: general Induction method: intravenous NPO status: acceptable Informed Consent Anesthetic plan and risks discussed with healthcare power of recruiting team lead (son). Use of blood products discussed with healthcare power of recruiting team lead (son);. Plan discussed with: SRNA. in this encounter Plan of Treatment Not on fileas of this encounter Visit Diagnoses Not on filein this encounter Administered Medications Inactive Administered Medications - up to 3 most recent administrations Medication Order MAR Action Action Date Dose Rate Site dexamethasone (DECADRON) injection Given 04/11/2017 12:30 LEASING CONSULTANT 4 mg Intravenous, INTRA-PROCEDURE MED, Starting Fri04/11/17 at 1230, Until Fri04/11/17 at 1330, Nausea/Vomiting Injectable, Anesthesia Intra-op dexmedetomidine (PRECEDEX) injection Given 04/11/2017 12:00 LEASING CONSULTANT 4 mcg INTRA-PROCEDURE MED, Starting Fri04/11/17 at 1200, Until Fri04/11/17 at 1330, Anesthesia Intra-op Given 04/11/2017 12:05 LEASING CONSULTANT 4 mcg esmolol (BREVIBLOC) injection Given 04/11/2017 13:07 LEASING CONSULTANT 20 mg INTRA-PROCEDURE MED, Starting Fri04/11/17 at 1307, Until Fri04/11/17 at 1330, Anesthesia Intra-op fentaNYL citrate PF (SUBLIMAZE) injection Given 04/11/2017 12:03 LEASING CONSULTANT 100 mcg INTRA-PROCEDURE MED, Starting Fri04/11/17 at 1203, Until Fri04/11/17 at 1330, Pain Injectable, Anesthesia Intra-op lactated ringers infusion Given - New Bag 04/11/2017 11:58 LEASING CONSULTANT INTRA-PROCEDURE MED(CONT), Starting Fri04/11/17 at 1158, Until Fri04/11/17 at 1330, Anesthesia Intra-op lidocaine (PF) injection Given 04/11/2017 12:03 LEASING CONSULTANT 80 mg INTRA-PROCEDURE MED, Starting Fri04/11/17 at 1203, Until Fri04/11/17 at 1330, Anesthesia Intra-op ondansetron (ZOFRAN) injection Given 04/11/2017 12:30 LEASING CONSULTANT 4 mg Intravenous, INTRA-PROCEDURE MED, Starting Fri04/11/17 at 1230, Until Fri04/11/17 at 1330, Nausea/Vomiting Injectable, Anesthesia Intra-op phenylephrine Dose/Rate Change 04/11/2017 12:52 1.2 mcg/kg/min 183.2 mL/hr (YASHIRA-SYNEPHRINE) 10 mg LEASING CONSULTANT in sodium chloride 0.9% (NS) 250 mL IV drip (std conc) 250 mL, INTRA-PROCEDURE MED(CONT), Starting Fri04/11/17 at 1244, Until Fri04/11/17 at 1330, Anesthesia Intra-op Dose/Rate Change 04/11/2017 13:07 LEASING CONSULTANT 1 mcg/kg/min 152.7 mL/hr Dose/Rate Change 04/11/2017 13:12 LEASING CONSULTANT 1.2 mcg/kg/min 183.2 mL/hr phenylephrine in NS Injection Given 04/11/2017 12:39 LEASING CONSULTANT 100 mcg Intravenous, INTRA-PROCEDURE MED, Starting Fri04/11/17 at 1237, Until Fri04/11/17 at 1330, Symptomatic Hypotension, Anesthesia Intra-op Given 04/11/2017 12:40 LEASING CONSULTANT 100 mcg Given 04/11/2017 13:07 LEASING CONSULTANT 100 mcg propofol (DIPRIVAN) Given - New Bag 04/11/2017 13:04 80 mcg/kg/min 48.9 mL/ hr infusion LEASING CONSULTANT 50 mL, INTRA-PROCEDURE MED(CONT), Starting Fri04/11/17 at 1304, Until Fri04/11/17 at 1330, Anesthesia Intra-op Dose/Rate Change 04/11/2017 13:30 LEASING CONSULTANT 80 mcg/kg/min 48.9 mL/hr propofol (DIPRIVAN) injection Given 04/11/2017 12:09 LEASING CONSULTANT 110 mg INTRA-PROCEDURE MED, Starting Fri04/11/17 at 1209, Until Fri04/11/17 at 1330, Anesthesia Intra-op Given 04/11/2017 13:24 LEASING CONSULTANT 50 mg Given 04/11/2017 13:30 LEASING CONSULTANT 40 mg rocuronium (ZEMURON) injection Given 04/11/2017 12:09 LEASING CONSULTANT 50 mg Intravenous, INTRA-PROCEDURE MED, Starting Fri04/11/17 at 1209, Until Fri04/11/17 at 1330, Anesthesia Intra-op in this encounter
--- OUTSIDE RECORDS SUMMARY | 2017-04-20 13:52 | External Medical Summary | Encounter Summary ---
:1950 Author Organization [facility] Address [address] [facility] [address] [place] [address] Phone Care Team Providers Name Role Phone Chad Flores MD Primary Care Provider Encounter Details Date Type Department Care Team Description 04/07/2017 Procedure Pass [id number] [place] [address] Social History Tobacco Use Types Packs/Day Years Used Date Never Assessed Sex Assigned at Date Recorded Not on file as of this encounter Functional Status Functional Status Response Date of Assessment Does the patient have a hearing impairment: Yes 04/07/2017 as of this encounter Plan of Treatment Not on fileas of this encounter Visit Diagnoses Not on filein this encounter
--- OUTSIDE RECORDS SUMMARY | 2017-04-20 13:52 | External Medical Summary | Encounter Summary ---
:1950 Author Organization [facility] Address [address] [place] [address] Phone Care Team Providers Name Role Phone Chad Flores MD Primary Care Provider Encounter Details Date Type Department Care Team Description 04/07/2017 Hospital Encounter [facility] Radiology [address] [place] [address] Social History Tobacco Use Types Packs/Day Years Used Date Never Assessed Sex Assigned at Date Recorded Not on file as of this encounter Functional Status Functional Status Response Date of Assessment Does the patient have a hearing impairment: Yes 04/07/2017 as of this encounter Medications at Time of Discharge Medication Sig. Disp. Refills Start Date End Date calcium Take 1 tablet by 180 tablet 1 04/20/2017 carbonate/vitamin D-3 mouth twice daily. (OSCAL-500+D) 1250 Calcium Carb 1250mg mg/200 unit tablet delivers 500mg elemental Ca carvedilol (COREG) 3.125 Take 1 tablet by 180 tablet 3 04/20/2017 mg tablet mouth twice daily. Take with food. famotidine (PEPCID) 20 Take 1 tablet by 180 tablet 3 04/20/2017 mg tablet mouth twice daily. insulin aspart U-100 Inject 8 Units under 45 mL 3 04/20/2017 (NOVOLOG FLEXPEN) 100 the skin three times unit/mL injection PEN daily with meals. insulin glargine (LANTUS Inject 16 Units 45 mL 3 04/20/2017 SOLOSTAR, BASAGLAR) 100 under the skin at unit/mL (3 mL) injection bedtime daily. PEN polyethylene glycol 3350 Take 2 packets by 12 each 1 04/20/2017 (MIRALAX) 17 g packet mouth twice daily as needed. prednisone (DELTASONE) Take 4 tablets by 16 tablet 0 04/20/2017 04/24/2017 20 mg tablet mouth daily for 4 days. sertraline (ZOLOFT) 100 Take 1.5 tablets by 04/20/2017 mg tablet mouth daily. as of this encounter Plan of Treatment Not on fileas of this encounter Results CT HEAD EXTERNAL IMAGING (04/07/2017 12:15 AM) Narrative This order has been auto finalized and does not contain a result. in this encounter Visit Diagnoses Diagnosis Diagnosis unknown Other unknown and unspecified cause of morbidity or mortality
--- OUTSIDE RECORDS SUMMARY | 2017-04-20 13:52 | External Medical Summary | Encounter Summary ---
:[address] [facility] Address [address] [facility] [address] [place] [address] Phone Care Team Providers Name Role Phone Chad Flores MD Primary Care Provider Encounter Details Date Type Department Care Team Description 04/07/2017 Procedure Pass [id number] [place] [address] Social History Tobacco Use Types Packs/Day Years [...]
--- OUTSIDE RECORDS SUMMARY | 2017-04-20 13:52 | External Medical Summary | Encounter Summary ---
:[address] [facility] Address [address] [facility] [address] [place] [address] Phone Care Team Providers Name Role Phone Chad Flores MD Primary Care Provider Encounter Details Date Type Department Care Team Description 04/07/2017 Procedure Pass [id number] [place] [address] Social History Tobacco Use Types Packs/Day Years [...]
--- OUTSIDE RECORDS SUMMARY | 2017-04-20 13:52 | External Medical Summary | Encounter Summary ---
:1950 Author Organization [facility] Address [address] [facility] [address] [place] [address] Phone Care Team Providers Name Role Phone Chad Flores MD Primary Care Provider Encounter Details Date Type Department Care Team Description 04/08/2017 Procedure Pass [id number] [place] [address] Social History Tobacco Use Types Packs/Day Years [...]
--- OUTSIDE RECORDS SUMMARY | 2017-04-20 13:52 | External Medical Summary | Encounter Summary ---
:1950 Author Organization [facility] Address [address] [facility] [address] [place] [address] Phone Care Team Providers Name Role Phone Chad Flores MD Primary Care Provider Reason for Visit Auth/Cert Status Reason Specialty Diagnoses / Procedures Referred By Contact Referred To Contact Diagnoses stroke - sub acute infarct Aphasia Encounter Details Date Type Department Care Team Description 04/08/2017 Anesthesia [facility] Kassy Clarke MD [facility] Radiology [address] [facility] [address] [place] [address] FLO[address] [phone] [place] [address] [phone] Anesthesia Record Procedure Summary Procedure Name Responsible Anesthesia Start Anesthesia Stop Time Anesthesiologist Time MRI HEAD WO/W Catalino Irvin MD 04/08/17 1250 04/08/17 1359 CONTRAST Events Date Time Event Comment 04/08/2017 1230 AN Equip Check 1250 Anes Start 1250 An Start Data 1252 An Induction The patient was reevaluated immediately before moderate or deep sedation use and before anesthesia induction. 1253 An Intubation 1254 Anesthesia Ready 1348 an stop data 1349 Transport Pt transported to NEICU on monitor and ventilator accompanied by RT. 1358 Handoff to RN I completed my SBAR handoff to the receiving nurse. 1359 An Stop Name Total fentaNYL PF (SUBLIMAZE) injection 100 mcg lidocaine (2%) 200 mg/10mL Injection syringe 100 mg propofol (DIPRIVAN) 200 mg/ 20 mL injection (VIAL) 200 mg succinylcholine (ANECTINE) injection (VIAL) 80 mg ondansetron (ZOFRAN) injection 4 mg dexamethasone (DECADRON) 4 mg/mL injection 4 mg dexmedetomidine (PRECEDEX) 400 mcg in sodium chloride 0.9% (NS) 100 mL IV 117.88 mcg infusion sodium chloride 0.9 % infusion (1000 mL bag) 0 mL Agents Name O2 Blood No blood administrations on file. Lines, [...] ETCO2 Detector; 23 centimeters; atraumatic, dentition unchanged Indwelling Urinary 04/07/17 (placed at 04/07/17 0000 by 04/12/17 1131 by Catheter OSH ); (placed at OSH Jt Costa RN Rivera Ortiz, ); Present on [employer]; 04/12/17; 1131 Peripheral IV 04/07/17; 1238; RN; R; 04/07/17 1238 by 04/12/17 0400 by Upper Arm; 20 G; Jt Costa RN Taylor, Cassandra, 04/12/17; 0400 RN Nasoduodenal Tube 04/07/17; 1900; Left 04/07/17 1900 by 04/12/17 1600 by Nare; Yes; Nursing; Jt Costa RN Bledsoe, Katelee, Auscultation, X-ray; RN 2; 1; Air Bolus, Reposition Pt; 04/12/17; 1600 Endotracheal Tube 04/08/17; Oral; 8mm; 04/08/17 0000 by 04/08/17 1516 by Single-Lumen; Shabnam Salguero, RT Shabnam Salguero, 04/08/17; 1516 RT in this encounter Social History Tobacco Use Types Packs/Day Years Used Date Never Assessed Sex Assigned at Date Recorded Not on file as of this encounter Functional Status Functional Status Response Date of Assessment Does the patient have a hearing impairment: Yes 04/07/2017 as of this encounter OR Notes Anesthesia Postprocedure Evaluation - Iona Correa CRNA - 04/08/2017 2:12 PM CSTPost-Anesthesia Evaluation Name: Rohan Lombardi : 1950 Age: 66 y.o. Sex: male Procedure Date: 04/08/2017 Procedure: * No procedures listed * Surgeon: * No surgeons listed * Post-Anesthesia Vitals BP: 93/53 (04/08 1400) Temp: 38.4 C (101.1 F) (04/08 1200) Pulse: 84 (04/08 1400) Respirations: 35 PER MINUTE (04/08 1400) SpO2: 97 % (04/08 1400) O2 Delivery: Endotracheal Tube (Oral) (04/08 1300) SpO2 Pulse: 84 (04/08 1400) Height: 188 cm (74.02") (04/07 1600) Post Anesthesia Evaluation Note Evaluation location: ICU Patient participation: patient intubated, unable to assess; expectation of recovery by ICU physician Level of consciousness: intubated & sedated Pain management: adequate Hydration: normovolemia Temperature: 36.0C - 38.4C Airway patency: adequate Perioperative Events Perioperative events: no Post-op nausea and vomiting: no PONV Postoperative Status Cardiovascular status: hemodynamically stable Respiratory status: ETT Follow-up needed: none Perioperative Events Perioperative Event: No Emergency Case Activation: No Ventilator settings: Mode: CPAP FiO2: 100 Tidal volume: 500 ml Ventilatory rate: 25 breaths/min PEEP: 5 cm H2O Vasoactive Drips: N/A Blood products/Hemostatic Agents/Anticoagulants: N/A Special Considerations: N/A Patient was transported with supplemental oxygen and routine cardiovascular monitoring, including pulse oximetry. Individuals present during transport include KMGAIL Li CRNA RN, RT. The patient was admitted to the ICU under care of the critical care team. This information was communicated between anesthesia and the receiving team. Associated attestation - Catalino Irvin MD - 04/08/2017 3:52 PM CSTPost- Anesthesia Evaluation Attestation: I reviewed and agree the indicated post- anethesia care was provided.Anesthesia Preprocedure Evaluation - Kassy Clarke MD - 04/08/2017 11:26 AM CSTFormatting of this note may be different from the original. Anesthesia Pre-Procedure Evaluation Name: Rohan Lombardi : 1950 Age: 66 y.o. Sex: male Procedure Date: Procedure: * No surgery found * Physical Assessment Vital Signs (last filed in past 24 hours): BP: 169/85 (04/08 1000) Temp: 37.2 C (98.9 F) (04/08 0800) Pulse: 104 (04/08 1000) Respirations: 18 PER MINUTE (04/08 1000) SpO2: 94 % (04/08 1000) O2 Delivery: Nasal Cannula (04/08 1000) Height: 188 cm (74.02") (04/07 1600) Weight: 102.1 kg (225 lb) (04/07 1599) Patient History No Known Allergies Current Medications [...] reviewed Nursing notes reviewed Pertinent labs reviewed Airway - negative Pulmonary Current smoker; patient did not smoke on day of surgery Pneumonia Shortness of breath No sleep apnea Cardiovascular Recent diagnostic studies: echocardiogram 04/07/17 1. There is limited endocardial definition even with the use of left ventricular contrast. Review ofthe contrast images show no diagnostic regional wall motion abnormalities. Overall LV systolic function appears normal. The estimated left ventricular ejection fraction appears to be in the range of 55-60 %. 2. There is mild concentric left ventricular [...] not exclude the presence of intracardiac thrombus. Spouse reports cardiac cath in the summer of 2016 that found "some build up" that did not require anintervention. Exercise tolerance: <4 METS Beta Beverly therapy: No Beta blockers within 24 hours: n/a Hypertension, Past NM, > 6 months GI/Hepatic/Renal Renal disease: ARF No nausea No vomiting Creatine 1.5 and trending down. Neuro/Psych CVA, residual symptoms Musculoskeletal Back pain Arthritis Previous multilevel back surgery in October 2016. Endocrine/Other Diabetes Physical Exam Airway Findings Mallampati: III TM distance: >3 FB Neck ROM: full Mouth opening: good Airway patency: adequate Dental Findings: Partials and upper dentures Comments: Partial plate in lower jaw. Cardiovascular Findings: Rate: normal Comments: Sinus tachycardia Pulmonary Findings: Negative Breath sounds clear to auscultation. Comments: Patient currently on 10 LPM O2 however nasal cannula is not high flow and only delivers 5 LPM Neurological Findings: Altered mental status Diagnostic Tests Hematology: Lab Results Component Value Date HGB 11.6 04/08/2017 HCT 34.8 04/08/2017 PLTCT 220 04/08/2017 WBC 10.4 04/08/2017 NEUT 80 04/07/2017 ANC 9.10 04/07/2017 ALC 1.50 04/07/2017 EMILY 7 04/07/2017 AMC 0.80 04/07/2017 EOSA 0 04/07/2017 ABC 0.00 04/07/2017 MCV 90.5 04/08/2017 MCH 30.1 04/08/2017 MCHC 33.3 04/08/2017 MPV 8.1 04/08/2017 RDW 14.3 04/08/2017 General Chemistry: Lab Results Component Value Date NA 150 04/08/2017 K 3.6 04/08/2017 CL 110 04/08/2017 CO2 26 04/08/2017 GAP 11 04/08/2017 BUN 29 04/08/2017 CR 1.52 04/08/2017 GLU 158 04/08/2017 CA 13.5 04/08/2017 OBSCA 1.67 04/07/2017 MG 1.6 04/08/2017 TOTBILI 0.5 04/08/2017 PO4 4.3 04/08/2017 Coagulation: Lab Results Component Value Date PTT 23.5 04/07/2017 INR 1.2 04/07/2017 Anesthesia Plan ASA score: 4 Plan: general Induction method: intravenous NPO status: acceptable Informed Consent Anesthetic plan and risks discussed with spouse. Use of blood products discussed with spouse; consented to blood products. Plan discussed with: SYLVIE and anesthesiologist. Anesthesia Preprocedure Evaluation - Guillermo Staples SRNA - 04/08/2017 10:31 AM CSTFormatting of this note may be different from the original. Anesthesia Pre-Procedure Evaluation Name: Rohan Lombardi : 1950 Age: 66 y.o. Sex: male Procedure Date: Procedure: * No surgery found * Physical Assessment Vital Signs (last filed in past 24 hours): BP: 169/85 (04/08 1000) Temp: 37.2 C (98.9 F) (04/08 0800) Pulse: 104 (04/08 1000) Respirations: 18 PER MINUTE (04/08 1000) SpO2: 94 % (04/08 1000) O2 Delivery: Nasal Cannula (04/08 999) Height: 188 cm (74.02") (04/07 1599) Weight: 102.1 kg (225 lb) (04/07 1599) Patient History No Known Allergies Current Medications [...] reviewed Nursing notes reviewed Pertinent labs reviewed Airway - negative Pulmonary Current smoker; patient did not smoke on day of surgery Pneumonia Shortness of breath No sleep apnea Cardiovascular Recent diagnostic studies: echocardiogram 04/07/17 1. There is limited endocardial definition even with the use of left ventricular contrast. Review ofthe contrast images show no diagnostic regional wall motion abnormalities. Overall LV systolic function appears normal. The estimated left ventricular ejection fraction appears to be in the range of 55-60 %. 2. There is mild concentric left ventricular [...] not exclude the presence of intracardiac thrombus. Spouse reports cardiac cath in the summer of 2016 that found "some build up" that did not require anintervention. Exercise tolerance: <4 METS Beta Beverly therapy: No Beta blockers within 24 hours: n/a Hypertension, Past NM, > 6 months GI/Hepatic/Renal Renal disease: ARF No nausea No vomiting Creatine 1.5 and trending down. Neuro/Psych CVA, residual symptoms Musculoskeletal Back pain Arthritis Previous multilevel back surgery in October 2016. Endocrine/Other Diabetes Physical Exam Airway Findings Mallampati: III TM distance: >3 FB Neck ROM: full Mouth opening: good Airway patency: adequate Dental Findings: Partials and upper dentures Comments: Partial plate in lower jaw. Cardiovascular Findings: Rate: normal Comments: Sinus tachycardia Pulmonary Findings: Negative Breath sounds clear to auscultation. Comments: Patient currently on 10 LPM O2 however nasal cannula is not high flow and only delivers 5 LPM Neurological Findings: Altered mental status Diagnostic Tests Hematology: Lab Results Component Value Date HGB 11.6 04/08/2017 HCT 34.8 04/08/2017 PLTCT 220 04/08/2017 WBC 10.4 04/08/2017 NEUT 80 04/07/2017 ANC 9.10 04/07/2017 ALC 1.50 04/07/2017 EMILY 7 04/07/2017 AMC 0.80 04/07/2017 EOSA 0 04/07/2017 ABC 0.00 04/07/2017 MCV 90.5 04/08/2017 MCH 30.1 04/08/2017 MCHC 33.3 04/08/2017 MPV 8.1 04/08/2017 RDW 14.3 04/08/2017 General Chemistry: Lab Results Component Value Date NA 150 04/08/2017 K 3.6 04/08/2017 CL 110 04/08/2017 CO2 26 04/08/2017 GAP 11 04/08/2017 BUN 29 04/08/2017 CR 1.52 04/08/2017 GLU 158 04/08/2017 CA 13.5 04/08/2017 OBSCA 1.67 04/07/2017 MG 1.6 04/08/2017 TOTBILI 0.5 04/08/2017 PO4 4.3 04/08/2017 Coagulation: Lab Results Component Value Date PTT 23.5 04/07/2017 INR 1.2 04/07/2017 Anesthesia Plan ASA score: 4 Plan: general Induction method: intravenous NPO status: acceptable Informed Consent Anesthetic plan and risks discussed with spouse. Use of blood products discussed with spouse; consented to blood products. Plan discussed with: SRNA and anesthesiologist. in this encounter Plan of Treatment Not on fileas of this encounter Visit Diagnoses Not on filein this encounter Administered Medications Inactive Administered Medications - up to 3 most recent administrations Medication Order MAR Action Action Date Dose Rate Site dexamethasone (DECADRON) injection Given 04/08/2017 12:57 [employer]WAY [employer] SUPER[employer]OR 4 mg Intravenous, INTRA-PROCEDURE MED, Starting Fri04/08/17 at 1257, Until Fri04/08/17 at 1401, Nausea/Vomiting Injectable, Anesthesia Intra-op dexmedetomidine Dose/Rate Change 04/11/2017 00:00 0.5 mcg/kg/hr 12.8 mL/hr (PRECEDEX) 400 mcg in [employer] SUPER[employer]OR sodium chloride 0.9% (NS) 100 mL IV infusion 0.2-1 mcg/kg/hr 102.5 kg (5.125-25.625 mL/hr, rounded to 5.1-25.6 mL/hr) 100 mL, at 5.1-25.6 mL/hr, Intravenous, TITRATE DIRECTED , Starting Fri04/07/17 at 1500, Until Fri04/11/17 at 1010, -Initiate at 0.02 mcg/kg/hr and maintain for 30 minutes -Titrate to keep: RASS of 0 to -1 a.) Titrate infusion in increments of 0.1 mcg/kg/hour at 5 minute intervals until goal sedation level achieved or maintenance exceeds 1.0 mcg/kg/hr b.) If HR < 60 or SBP < 90 mmHg hold for 10 minutes then restart at dose reduced by 0.3 mcg/kg/min c.) Notify physician for persistent hypotension (SBP < 90 mmHg) or bradycardia (HR < 60) over 15 minutes d.) For breakthrough agitation NOTIFY PHYSICIAN and consider bolus of 1 mcg/kg over 20 min if HR and BP are acceptable. e.) Notify physician if maintenance exceeds 1 mcg/kg/hr -Taper agent continuously to lowest effective dose to achieve desired level of sedation keeping patient calm and able to participate in care. Given - New Bag 04/11/2017 00:30 [employer] REPAIR SUPERVISOR 0.5 mcg/kg/hr 12.8 mL/hr Dose/Rate Change 04/11/2017 07:19 [employer] SUPER[employer]OR 0.2 mcg/kg/hr 5.1 mL/hr fentaNYL citrate PF (SUBLIMAZE) injection Given 04/08/2017 13:00 [employer] SUPERVISOR 100 mcg INTRA-PROCEDURE MED, Starting 04/08/17 at 1300, Until 04/08/17 at 1401, Pain Injectable, Anesthesia Intra-op lidocaine (PF) injection Given 04/08/2017 12:52 [employer]PER[employer]OR 100 mg INTRA-PROCEDURE MED, Starting 04/08/17 at 1252, Until 04/08/17 at 1401, Anesthesia Intra-op ondansetron (ZOFRAN) injection Given 04/08/2017 12:55 [employer] SUPER[employer]OR 4 mg Intravenous, INTRA-PROCEDURE MED, Starting 04/08/17 at 1255, Until 04/08/17 at 1401, Nausea/Vomiting Injectable, Anesthesia Intra-op propofol (DIPRIVAN) injection Given 04/08/2017 12:52 [employer] SUPER[employer]OR 150 mg INTRA-PROCEDURE MED, Starting 04/08/17 at 1252, Until 04/08/17 at 1401, Anesthesia Intra-op Given 04/08/2017 12:59 [employer]AY RE[employer] SUPERVISOR 50 mg sodium chloride 0.9 % infusion Given - New Bag 04/08/2017 12:50 [employer] REPAIR SUPER[employer]OR INTRA-PROCEDURE MED(CONT), Starting 04/08/17 at 1250, Until 04/08/17 at 1401, Anesthesia Intra-op succinylcholine (ANECTINE) injection Given 04/08/2017 12:52 [employer] SUPERVISOR 80 mg Intravenous, INTRA-PROCEDURE MED, Starting 04/08/17 at 1252, Until 04/08/17 at 1401, Anesthesia Intra-op in this encounter
--- OUTSIDE RECORDS SUMMARY | 2017-04-20 13:52 | External Medical Summary | Encounter Summary ---
:1950 Author Organization [facility] Address [address] [facility] [address] [place] [address] Phone Care Team Providers Name Role Phone Chad Flores MD Primary Care Provider Encounter Details Date Type Department Care Team Description 04/09/2017 Procedure Pass [id number] [place] [address] Social History Tobacco Use Types Packs/Day Years [...]
--- OUTSIDE RECORDS SUMMARY | 2017-04-20 13:52 | External Medical Summary | Encounter Summary ---
:1950 Author Organization [facility] Address [address] [place] [address] [place] [address] Phone Care Team Providers Name Role Phone Chad Flores MD Primary Care Provider Encounter Details Date Type Department Care Team Description 04/07/2017 Hospital Encounter [facility] Radiology [address] [place] [address] Social History Tobacco Use Types [...] Not on fileas of this encounter Results GENERAL RAD CHEST EXTERNAL IMAGING (04/07/2017) Narrative This order has been auto finalized and does not contain a result. in this encounter Visit Diagnoses Diagnosis Diagnosis unknown Other unknown and unspecified cause of morbidity or mortality
--- OUTSIDE RECORDS SUMMARY | 2017-04-20 13:52 | External Medical Summary | Encounter Summary ---
:1950 Author Organization [facility] Address [address] [facility] [address] [place] [address] Phone Care Team Providers Name Role Phone Chad Flores MD Primary Care Provider Encounter Details Date Type Department Care Team Description 04/17/2017 Procedure Pass [id number] [place] [address] Social History Tobacco Use Types Packs/Day Years [...]
--- OUTSIDE RECORDS SUMMARY | 2017-04-20 13:52 | External Medical Summary | Encounter Summary ---
:1950 Author Organization [facility] Address [address] [place] [address] Phone Care Team Providers Name Role Phone Chad Flores MD Primary Care Provider Encounter Details Date Type Department Care Team Description 04/07/2017 Ancillary Orders Rad Outpatient, Diagnosis unknown [address] [place] [address] Social History Tobacco Use Types [...]
--- OUTSIDE RECORDS SUMMARY | 2017-04-20 13:52 | External Medical Summary | Encounter Summary ---
:1950 Author Organization [facility] Address [address] [facility] [address] [place] [address] Phone Care Team Providers Name Role Phone Chad Flores MD Primary Care Provider Encounter Details Date Type Department Care Team Description 04/09/2017 Procedure Pass [id number] [place] [address] Social History Tobacco Use Types Packs/Day Years [...]
--- OUTSIDE RECORDS SUMMARY | 2017-04-20 13:52 | External Medical Summary | Encounter Summary ---
:1950 Author Organization [facility] Address [address] [facility] [address] [place] [address] Phone Care Team Providers Name Role Phone Chad Flores MD Primary Care Provider Encounter Details Date Type Department Care Team Description 04/07/2017 Procedure Pass [id number] [place] [address] Social History Tobacco Use Types Packs/Day Years [...]
[2017-04-20 13:59] VITALS: BMI 29.7
[2017-04-20] MEDS: Oxycodone *IR* 5 MG TABLET PO SCH ×2 (15:48→20:13)
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
[2017-04-20] MEDS: INSULIN ASPART 100unit/ml INJECTION SQ SCH (17:23)
[2017-04-20] MEDS: CARVEDILOL 3.125 MG TABLET PO SCH (17:23)
[2017-04-20] MEDS: ACETAMINOPHEN 325 MG TABLET PO SCH (18:40)
[2017-04-20] MEDS ORDERED: TAMSULOSIN 0.4 MG CAPSULE PO SCH (19:00)
[2017-04-20] MEDS: GABAPENTIN 600 MG TABLET PO SCH (20:12)
[2017-04-20] MEDS: ENOXAPARIN 40 MG/0.4 ML INJECTION SQ SCH (20:16)
[2017-04-20] MEDS: CALCIUM 500 + VIT D 200 TABLET PO SCH (20:16)
[2017-04-20] MEDS: FAMOTIDINE 20 MG TABLET PO SCH (20:16)
[2017-04-20] MEDS: SENNA + DOCUSATE TABLET PO SCH (20:16)
[2017-04-20] MEDS: MELATONIN 1 MG TABLET PO SCH (20:16)
[2017-04-21] MEDS: Oxycodone *IR* 5 MG TABLET PO SCH ×5 (00:15→17:39)
[2017-04-21] MEDS: ACETAMINOPHEN 325 MG TABLET PO SCH ×6 (00:31→20:04)
[2017-04-21] MEDS ORDERED: PredniSONE 20 MG TABLET PO SCH (08:00)
[2017-04-21] MEDS: ASPIRIN 81 MG CHEWABLE TABLET PO SCH (08:48)
[2017-04-21] MEDS: GABAPENTIN 600 MG TABLET PO SCH ×3 (08:48→20:06)
[2017-04-21] MEDS: FAMOTIDINE 20 MG TABLET PO SCH ×2 (08:48→20:05)
[2017-04-21] MEDS: CALCIUM 500 + VIT D 200 TABLET PO SCH ×2 (08:48→20:05)
[2017-04-21] MEDS: SENNA + DOCUSATE TABLET PO SCH ×2 (08:48→20:09)
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
[2017-04-21] MEDS: INSULIN GLARGINE 100unit/ml INJECTION SQ SCH (08:49)
[2017-04-21] MEDS: INSULIN ASPART 100unit/ml INJECTION SQ SCH ×3 (08:49→17:41)
[2017-04-21] MEDS: CARVEDILOL 3.125 MG TABLET PO SCH (08:49)
[2017-04-21] MEDS: NICOTINE 7 MG PATCH TD SCH (09:40)
[2017-04-21] MEDS: MAGNESIUM OXIDE 400 MG TABLET PO SCH (09:41)
[2017-04-21] MEDS: SERTRALINE 100 MG TABLET PO SCH (09:41)
[2017-04-21] MEDS: AMLODIPINE 5 MG TABLET PO SCH (09:42)
[2017-04-21] MEDS: LISINOPRIL 10 MG TABLET PO SCH (09:42)
[2017-04-21] MEDS: NICOTINE PATCH REMOVAL TD SCH (09:42)
--- NOTE | 2017-04-21 10:08 | IRU 24Hr Post Admit Eval ---
24 Hr Post Admission Physical - Relevant Changes Relevant Changes: No Reviewed: I have reviewed the patient's information and concur with the finding and results of the pre-admission screen. Certification: I certify the patient for rehabilitation. - Patient Condition (1) Metabolic encephalopathy Status: Acute Code(s): G93.41 - Metabolic encephalopathy Classification: Present on IRF Admission, IRF Tx That Should Address Diagnosis, Diagnosis Requiring Medical Follow Up (2) Uncontrolled type 2 diabetes mellitus with insulin therapy Status: Chronic Code(s): E11.65 - Type 2 diabetes mellitus with hyperglycemia ; Z79.4 - shelter (current) use of insulin Classification: Present on IRF Admission, IRF Tx That Should Address Diagnosis, Diagnosis Requiring Medical Follow Up (3) Metastatic cancer to bone Status: Acute Code(s): C79.51 - Secondary malignant neoplasm of bone Classification: Present on IRF Admission, IRF Tx That Should Address Diagnosis, Diagnosis Requiring Medical Follow Up (4) RLL pneumonia Status: Acute Qualifiers: Pneumonia type: due to unspecified organism Qualified Code(s): J18.1 - Lobar pneumonia, unspecified organism Code(s): J18.1 - Lobar pneumonia, unspecified organism Classification: Present on IRF Admission, Diagnosis Requiring Medical Follow Up - Prior Functional Status Lives With: Spouse Residence Type: Apartment/Private Home Assitive Devices: None Prior Functional Status: Indep. at home or school, Indep. w/ IADL - Current Functional Status Current Level of Function: Current level of functioning is as follows: He requires minimum assistance for grooming, bathing, upper and lower body dressing and toileting. Requires supervision for bed/chair/wheelchair transfers, minimum assistance for toilet transfers and maximum assistance for walking. Currently he is using a rolling walker and can ambulate 100 feet. Requires total assistance for stair climbing. Physical therapy and occupational therapy noted decreased step length, increased fatigue and decreased activity tolerance along with impaired balance. Occupational therapy noted that the patient was impulsive at times requiring multiple cues. Seem to have impaired cognitive status. He was seen by speech therapy on April 14. They recommended advancing to regular solids and thin liquids along with ongoing speech treatment for completion of cognitive communication evaluation. Failed Alternative Therapy: Arrived from Acute Care Patient Requirements: The patient requires oversight by rehabilitation physician to manage their rehabilitation treatment plan and multidisciplinary approach to care that can only be provided in an IRF and requires a multidisciplinary approach to care, provided by professional PTs, OTs, STs, dieticians, RTs, rehabilitation nurses and is not available in lesser levels of care. Limitations Req: Mobility Impairment, ADL Impairment, Cognitive Impairment Therapy: The patient is to receive therapy at least 5 days a week. Plan of Care Comment: Physical therapy: 75 minutes 3 days weekly, 90 minutes 2 days weekly. Occupational therapy: 75 minutes 3 days weekly, 90 minutes 2 days weekly. Speech therapy: 30 minutes 3 days weekly - Complications/Comorbidities Impact on Functional Outcomes: Patient's metabolic encephalopathy and reduced cognition may negatively impact his functional outcome. In addition his severe pain secondary to metastatic malignancy to his bones, will negatively impact his functional recovery. Barriers to Discharge: Weakness, Balance, Endurance, Comprehension, Pain Control - Plan to Avoid Complications Plan to Avoid Complications: The patient cannot receive this care in a lesser intensive setting such as Detention or Outpatient Therapy due to the patient requiring the following : Patient requires close monitoring of his blood sugars in view of his diabetes and current use of corticosteroids. He requires close monitoring of his neurologic status in view of the metabolic encephalopathy and confusion. He requires 24-hour rehabilitation nursing monitoring and treatment of his pain. Finally, he requires a multidisciplinary approach with PT, OT and speech therapy with medical supervision.
[2017-04-21] MEDS ORDERED: FALL RISK - PHARMACY CONSULT XX ONE (11:00)
[2017-04-21] MEDS ORDERED: INSULIN ASPART 100unit/ml INJECTION SQ ONE (12:00)
--- NOTE | 2017-04-21 15:52 | Progress Note ---
- Date 04/21/17 Subjective: Patient is seen sitting in his chair. He is sleeping, but wakes up briefly to his name and soft touch. He is able to tell me he is in [place]. He says he has pain in his back and shoulders. No headache. Objective Vital signs: Temperature 97.2 F 04/21/17 08:05 Pulse Rate 120 H 04/21/17 08:05 Respiratory Rate 18 04/21/17 08:05 Blood Pressure 138/74 04/21/17 08:05 Pulse Oximetry 92 04/21/17 08:05 Height/Weight/BMI: Height 1.88 m Weight 105.1 kg Body Mass Index 29.7 - Constitutional Present: no acute distress, well nourished, well developed - Routine HEENT Exam Head: Present: normocephalic, atraumatic - Routine Respiratory Exam Present: CTA bilaterally. Absent: wheezes - Routine Cardiovascular Exam Present: RRR, tachycardia - Routine Abdominal Exam Present: soft, non distended, non tender - Routine Extremities Exam Present: no edema (2+ left, 1+ right lower extremity), normal capillary refill - Routine Skin Exam Present: dry, warm - Routine Neurological Exam Absent: alert Patient will wake momentarily to answer questions. He is oriented to person and place. - Routine Lymphatic Exam Lymphatic: Absent: adenopathy - Routine Psychiatric Exam Present: cooperative, unable to assess (due to somnolence) Results - Labs CBC & Chem 7: 04/21/17 05:29 04/21/17 05:29 Assessment and Plan (1) Metastatic cancer to bone Current visit: Yes Status: Acute Assessment and Plan: Assessment General debility secondary to recent hospital stay for encephalopathy Recent diagnosis of metastatic cancer with associated bone pain Status post left frontal cortical infarct 04/07/17 Leukocytosis-likely secondary to steroid usage Tachycardia-POA Hypertension Hyperlipidemia Normocytic anemia History of [place] Sleep apnea Diabetes mellitus, type II, insulin requiring (A1C 7% 04/07/17) BPH Depression/anxiety Recent CAP (treated with Zosyn) Plan Increase Coreg from 3.125 to 6.25 twice a day as pulse is averaging 115 since admission. Blood pressures are stable. I discussed his case with Dr. Meyer who agreed to see patient in consultation tomorrow. Dr. Nicole has extended the time between his narcotics dosing due to his excessive somnolence. Blood sugars are reviewed and have been stable thus far. Patient continues on prednisone 80 mg daily which was originally initiated as Solumedrol IV for encephalopathy 2 weeks ago, and then converted to Prednisone prior to DC. There were no clear instructions from previous facility as to the recommendations for weaning. Discussed with Dr. Lunsford. Will wean by 20mg weekly unless complications arise. - Physician Narrative Narrative: Date: 04/21/17 Time: 1544 Hospital Course Summary Disclaimer: The visit summary below is not to be considered part of the above Progress Note. Hospital Course: 04/20/17 Agree with admission to IRU for for further strengthening and medical management. Consult Dr. Meyer regarding his newly diagnosed metastatic cancer. Will monitor blood sugars and adjust insulin as needed. Continue metformin. Monitor blood pressures and adjust medications as needed. Pain management and therapies per Dr. Nicole. Follow electrolytes closely given recent diagnoses of hypernatremia and hypercalcemia. Care to return to Dr. Flores upon DC. Hospitalist team will continue to follow patient throughout his stay. Appreciate the consult. 04/21/17 Increase Coreg from 3.125 to 6.25 twice a day as pulse is averaging 115 since admission. Blood pressures are stable. I discussed his case with Dr. Meyer who agreed to see patient in consultation tomorrow. Dr. Nicole has extended the time between his narcotics dosing due to his excessive somnolence. Blood sugars are reviewed and have been stable thus far. Patient continues on prednisone 80 mg daily which was originally initiated as Solumedrol IV for encephalopathy 2 weeks ago, and then converted to Prednisone prior to DC. There were no clear instructions from previous facility as to the recommendations for weaning. Discussed with Dr. Lunsford. Will wean by 20mg weekly unless complications arise.
[2017-04-21] MEDS ORDERED: CARVEDILOL 3.125 MG TABLET PO SCH (17:30)
[2017-04-21] MEDS: CARVEDILOL 6.25 MG TABLET PO SCH (18:03)
[2017-04-21] MEDS: ATORVASTATIN 40 MG TABLET PO SCH (20:04)
[2017-04-21] MEDS: ENOXAPARIN 40 MG/0.4 ML INJECTION SQ SCH (20:05)
[2017-04-21] MEDS: MELATONIN 1 MG TABLET PO SCH (20:06)
[2017-04-21] MEDS: TAMSULOSIN 0.4 MG CAPSULE PO SCH (20:08)
[2017-04-22] MEDS: Oxycodone *IR* 5 MG TABLET PO SCH ×2 (00:17→06:25)
[2017-04-22] MEDS: ACETAMINOPHEN 325 MG TABLET PO SCH ×5 (03:34→20:24)
[2017-04-22] MEDS: INSULIN GLARGINE 100unit/ml INJECTION SQ SCH (08:30)
[2017-04-22] MEDS: INSULIN ASPART 100unit/ml INJECTION SQ SCH ×3 (08:30→18:28)
[2017-04-22] MEDS: FAMOTIDINE 20 MG TABLET PO SCH ×2 (08:31→20:25)
[2017-04-22] MEDS: PredniSONE 20 MG TABLET PO SCH (08:31)
[2017-04-22] MEDS: ASPIRIN 81 MG CHEWABLE TABLET PO SCH (08:32)
[2017-04-22] MEDS: SERTRALINE 100 MG TABLET PO SCH (08:32)
[2017-04-22] MEDS: AMLODIPINE 5 MG TABLET PO SCH (08:33)
[2017-04-22] MEDS: LISINOPRIL 10 MG TABLET PO SCH (08:33)
[2017-04-22] MEDS: CALCIUM 500 + VIT D 200 TABLET PO SCH ×2 (08:34→20:24)
[2017-04-22] MEDS: GABAPENTIN 600 MG TABLET PO SCH ×3 (08:34→20:26)
[2017-04-22] MEDS: CARVEDILOL 6.25 MG TABLET PO SCH ×2 (08:34→17:04)
[2017-04-22] MEDS: NICOTINE 7 MG PATCH TD SCH (08:35)
[2017-04-22] MEDS: MAGNESIUM OXIDE 400 MG TABLET PO SCH (08:35)
[2017-04-22] MEDS: SENNA + DOCUSATE TABLET PO SCH ×2 (08:39→20:26)
--- NOTE | 2017-04-22 11:02 | IRU Progress Note ---
- Subjective/Serverity of Illness Date: 04/22/17 Mr. Lombardi continues to complain of discomfort in the bones particularly the sternum at the present time. It is definitely changing with taking a deep breath. It does not sound cardiac. In addition, he is excessively sleepy/sulcal with the current dose of oxycodone despite reducing that to 4 times daily. He does have significant lytic lesions and I'm sure has significant bone pain. We will switch to tramadol 4 times daily on a regular basis to see if that will help his pain without providing excessive sedation. Dr. Meyer plans to see him today to discuss the potential of chemotherapy. Patient states that he "needs to get started right away on treatment" for his cancer. I am not certain that we have a cell type as we have not heard from the bone biopsy report yet. I discussed the case also with the hospitalist service. He is able to participate in therapy although is quite somnolent. Exam Vital Signs: Temperature 97.5 F 04/22/17 08:00 Pulse Rate 114 H 04/22/17 08:00 Respiratory Rate 18 04/22/17 08:00 Blood Pressure 140/76 H 04/22/17 08:00 Pulse Oximetry 90 04/22/17 08:00 Height/Weight/BMI: Height 1.88 m Weight 105.1 kg Body Mass Index 29.7 - Constitutional Present: moderate distress (today complains of sternal pain increasing with a deep breath. Has diffuse bony discomfort as well.), well nourished, well developed, cooperative, somnolent - Routine HEENT Exam Head: Present: normocephalic Eye: Present: EOMI ENT: Present: mucous membranes moist - Routine Neck Exam Present: supple - Routine Respiratory Exam Present: CTA bilaterally. Absent: respiratory distress, rhonchi, wheezes - Routine Cardiovascular Exam Present: RRR, S1, S2. Absent: murmur - Routine Abdominal Exam Present: soft, normoactive bowel sounds, tenderness (tender in the abdomen. Hepatomegaly may be present.), non distended, organomegaly - Routine Extremities Exam Present: edema (patient reports some chronic edema.), pulses intact - Routine Skin Exam Present: dry, warm - Routine Neurological Exam Present: oriented X3, CN II-XII intact. Absent: alert (sleepy but will awaken and answer questions.) - Routine Psychiatric Exam Present: normal affect, cooperative Results IRU - Labs Labs: Have reviewed labs including leukocytosis of 17,000 likely due to prednisone. Have reviewed other providers notes as well. IRU A/P (1) Metabolic encephalopathy Current visit: Yes Status: Acute Continues to have evidence of some encephalopathy. Likely this is a combination of his recent stroke plus a medication. He seems excessively somnolent as well. We will switch to tramadol and see if that will allow him to participate more while still having adequate pain control. (2) Metastatic cancer to bone Current visit: Yes Status: Acute (3) Uncontrolled type 2 diabetes mellitus with insulin therapy Current visit: Yes Status: Chronic Blood sugars appear to be reasonably well controlled at the present time on the current insulin doses. (4) RLL pneumonia Qualifiers: Pneumonia type: due to unspecified organism Qualified Code(s): J18.1 - Lobar pneumonia, unspecified organism Current visit: No Status: Acute (5) HTN (hypertension) Qualifiers: Hypertension type: essential hypertension Qualified Code(s): I10 - Essential (primary) hypertension Current visit: No Status: Chronic DVT Prophylaxis: SCD's, Lovenox Resuscitation Status: Full Code - Course Hospital Course: Craig Nicole MD: 04/22/17 11:03 Patient continues to be somnolent. Change from oxycodone to tramadol. Oncology consultation today. - Interventions to Obtain Goals PT Treatment Plan: Balance/Proprioception, Functional Activities, Gait Training , Patient/Family Education, Therapeutic Exercise OT Treatment Plan: ADL (Basic Care), Balance Training, IADL, Pt./Family Education, Ther. Exercise for ADL Goals Progress/Modifications: Discussed case with the hospitalist service as well as the patient. Patient would like to see Dr. Vallejo as soon as possible to get "started on treatment." It is not clear to me if we have a cell type yet nor is it clear that he would actually be a candidate for chemotherapy in view of the extensive degree of his neoplastic process. He remains somnolent on the current dose of oxycodone so we will switch to tramadol.
[2017-04-22] MEDS: NICOTINE PATCH REMOVAL TD SCH (11:10)
[2017-04-22] MEDS: TRAMADOL 50 MG TABLET PO SCH ×3 (12:11→20:29)
--- NOTE | 2017-04-22 15:18 | IRU Plan of Care ---
U Overall Plan of Care - Date Date: 04/22/17 - Patient Impairments (1) Metabolic encephalopathy Code(s): G93.41 - Metabolic encephalopathy Status: Acute Classification: Present on IRF Admission, IRF Tx That Should Address Diagnosis, Diagnosis Requiring Medical Follow Up (2) Metastatic cancer to bone Code(s): C79.51 - Secondary malignant neoplasm of bone Status: Acute Classification: Present on IRF Admission, IRF Tx That Should Address Diagnosis, Diagnosis Requiring Medical Follow Up (3) Uncontrolled type 2 diabetes mellitus with insulin therapy Code(s): E11.65 - Type 2 diabetes mellitus with hyperglycemia; Z79.4 - [facility] (current) use of insulin Status: Chronic Classification: Present on IRF Admission, IRF Tx That Should Address Diagnosis, Diagnosis Requiring Medical Follow Up - Relevant Changes Relevant Changes: No Reviewed: I have reviewed the patient's information and concur with the finding and results of the pre-admission screen. Certification: I certify the patient for rehabilitation. - Medical Prognosis Medical Prognosis: Fair Vital Signs: Last Vital Signs Temp 97.5 F 04/22/17 08:00 Pulse 114 H 04/22/17 08:00 Resp 18 04/22/17 08:00 BP 140/76 H 04/22/17 08:00 Pulse Ox 90 04/22/17 08:00 - Anticipated Interventions Anticipated Interventions: The patient requires inpatient IRF care for PT, OT, and/or ST for residuals remaining from metabolic encephalopathy and metastatic carcinoma resulting in muscular weakness and strength deficits. An individualized overall plan of care has been developed after careful review of the patient's preadmission screening , post admission physician evaluation and assessments of all therapy disciplines and/or other pertinent clinicians involved in treating the patient. This indicates medical necessity and rehabilitation necessity have been established through a thorough review of all available medical information. - Current Functional Status Failed Alternative Therapy: Arrived from Acute Care Patient Requires: The patient requires oversight by rehabilitation physician to manage their rehabilitation treatment plan and multidisciplinary approach to care that can only be provided in an IRF and requires a multidisciplinary approach to care, provided by professional PTs, OTs, STs, rehabilitation nurses, and may require STs, dieticians, and RTS. This is not available in lesser levels of care. Therapy: The patient is to receive therapy at least [address] Treatment Plan: Cognitive Linguistic Tx ST Treatment Plan Duration: Two Weeks ST Treatment Plan Frequency: Three Times Per Week Comments: Physical therapy: 75 minutes 3 days weekly, 90 minutes 2 days weekly Occupational therapy: 75 minutes 3 days weekly, 90 minutes 2 days weekly Speech therapy: 30 minutes 3 days weekly - Anticipated LOS/Outcomes Anticipated Functional Outcome: It is anticipated the patient's pain will be under improved control and he will be able to ambulate at home and perform most ADLs with modified independent level to independent level of functioning. Expected functional improvements include: -- Modified independant to independant ambulation with or without assistive device -- Modified independant to independant ADL's with or without assistive device -- Return to pre-morbid level of mobility -- Maximize level of mobility and ADL's to decrease burden on any caregiver involved with this patient's care Anticipated Length of Stay (days): 7 Anticipated DC Destination: Home, Self Care, Home Health Service Home Safety Plan: The patient will be provided with the development of a Home Safety Plan for return to a home or home-like environment and and to ensure safety post discharge. - Plan to Avoid Complications Barriers to Attaining Goals: Weakness, Endurance, Pain Control Plan to Avoid Complications: The patient cannot receive this care in a lesser intensive setting such as Jail or Outpatient Therapy due to the patient requiring the following : Patient's metabolic encephalopathy requires a multidisciplinary approach with PT, OT and speech therapy. He also has metastatic malignancy of uncertain origin requiring medical supervision and 24 hour rehabilitation nursing assessment and treatment of his pain. This cannot be provided at a lower level of care.
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
[2017-04-22] MEDS ORDERED: AMLODIPINE 5 MG TABLET PO ONE (16:34)
--- NOTE | 2017-04-22 16:38 | Progress Note ---
Progress Note: Nurse called with elevated BP of 180/104 - remainder of vitals are nl. Give amlodipine 5mg now and increase amlodipine dose to 10mg starting tomorrow am.
[2017-04-22] MEDS: ATORVASTATIN 40 MG TABLET PO SCH (20:24)
[2017-04-22] MEDS: ENOXAPARIN 40 MG/0.4 ML INJECTION SQ SCH (20:24)
[2017-04-22] MEDS: MELATONIN 1 MG TABLET PO SCH (20:26)
[2017-04-22] MEDS: TAMSULOSIN 0.4 MG CAPSULE PO SCH (20:29)
[2017-04-23] MEDS: ACETAMINOPHEN 325 MG TABLET PO SCH ×6 (00:33→21:43)
[2017-04-23] MEDS: CARVEDILOL 6.25 MG TABLET PO SCH ×2 (08:29→18:31)
[2017-04-23] MEDS: INSULIN ASPART 100unit/ml INJECTION SQ SCH ×4 (08:30→18:35)
[2017-04-23] MEDS: PredniSONE 20 MG TABLET PO SCH (08:30)
[2017-04-23] MEDS: AMLODIPINE 10 MG TABLET PO SCH (08:31)
[2017-04-23] MEDS: ASPIRIN 81 MG CHEWABLE TABLET PO SCH (08:31)
[2017-04-23] MEDS: GABAPENTIN 600 MG TABLET PO SCH ×3 (08:31→21:42)
[2017-04-23] MEDS: CALCIUM 500 + VIT D 200 TABLET PO SCH ×2 (08:31→21:44)
[2017-04-23] MEDS: FAMOTIDINE 20 MG TABLET PO SCH ×2 (08:31→21:44)
[2017-04-23] MEDS: INSULIN GLARGINE 100unit/ml INJECTION SQ SCH (08:31)
[2017-04-23] MEDS: NICOTINE 7 MG PATCH TD SCH (08:32)
[2017-04-23] MEDS: LISINOPRIL 10 MG TABLET PO SCH (08:32)
[2017-04-23] MEDS: TRAMADOL 50 MG TABLET PO SCH ×4 (08:32→21:44)
[2017-04-23] MEDS: SERTRALINE 100 MG TABLET PO SCH (08:32)
[2017-04-23] MEDS: MAGNESIUM OXIDE 400 MG TABLET PO SCH (08:32)
[2017-04-23] MEDS: SENNA + DOCUSATE TABLET PO SCH ×2 (08:32→21:44)
[2017-04-23] MEDS: NICOTINE PATCH REMOVAL TD SCH (08:45)
--- NOTE | 2017-04-23 16:13 | Progress Note ---
Oncology Subjective The patient is very sleepy. He is on gabapentin and tramadol. Otherwise he remained stable. Exam Vital signs: Temperature 98.2 F 04/23/17 08:00 Pulse Rate 96 04/23/17 10:15 Respiratory Rate 22 04/23/17 08:00 Blood Pressure 144/93 H 04/23/17 08:00 Pulse Oximetry 91 04/23/17 10:15 - Constitutional no acute distress, cooperative - Routine Respiratory Exam Absent: rhonchi, stridor, wheezes, crackles - Routine Cardiovascular Exam Present: RRR, no murmur Oncology Results - Labs CBC & Chem 7: 04/22/17 04:27 04/21/17 05:29 Assessment and Plan Assessment and Plan: Assessment 1. 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 T11, L1 biopsy consistent with metastatic tumor, primary could be bladder or upper GI. 2. 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 3. History of stroke, receiving physical therapy/rehabilitation to maximize his strength. 4. History of hypercalcemia s/p pamidronate, resolved. 5. Pain due to bone metastasis on tramadol. 6. Renal insufficiency, resolved. Recommendation and plan 1. Obtain final pathology report from [facility]. 2. Continue supportive care: Physical therapy/Occupational Therapy to maximize the patient is strength for anticipated chemotherapy. 3. We will keep monitoring calcium and electrolytes. 4. We will obtain a restaging CT scan of the chest and abdomen before starting chemo therapy. - Time Spent With Patient Total time spent is greater than 50% in coordination of care (as documented) at patient's floor/unit and/or counseling patient: less than 15 minutes
[2017-04-23] MEDS: ENOXAPARIN 40 MG/0.4 ML INJECTION SQ SCH (21:40)
[2017-04-23] MEDS: MELATONIN 1 MG TABLET PO SCH (21:41)
[2017-04-23] MEDS: ATORVASTATIN 40 MG TABLET PO SCH (21:44)
[2017-04-23] MEDS: TAMSULOSIN 0.4 MG CAPSULE PO SCH (21:45)
[2017-04-24] MEDS: ACETAMINOPHEN 325 MG TABLET PO SCH ×5 (03:46→23:35)
[2017-04-24] MEDS: INSULIN GLARGINE 100unit/ml INJECTION SQ SCH (08:22)
[2017-04-24] MEDS: TRAMADOL 50 MG TABLET PO SCH ×4 (08:23→21:06)
[2017-04-24] MEDS: LISINOPRIL 10 MG TABLET PO SCH (08:23)
[2017-04-24] MEDS: FAMOTIDINE 20 MG TABLET PO SCH ×2 (08:23→21:03)
[2017-04-24] MEDS: INSULIN ASPART 100unit/ml INJECTION SQ SCH ×3 (08:23→17:34)
[2017-04-24] MEDS: SERTRALINE 100 MG TABLET PO SCH (08:24)
[2017-04-24] MEDS: CALCIUM 500 + VIT D 200 TABLET PO SCH ×2 (08:24→20:57)
[2017-04-24] MEDS: MAGNESIUM OXIDE 400 MG TABLET PO SCH (08:24)
[2017-04-24] MEDS: PredniSONE 20 MG TABLET PO SCH (08:24)
[2017-04-24] MEDS: CARVEDILOL 6.25 MG TABLET PO SCH ×2 (08:25→17:34)
[2017-04-24] MEDS: ASPIRIN 81 MG CHEWABLE TABLET PO SCH (08:25)
[2017-04-24] MEDS: GABAPENTIN 600 MG TABLET PO SCH ×2 (08:25→14:22)
[2017-04-24] MEDS: NICOTINE 7 MG PATCH TD SCH (08:25)
[2017-04-24] MEDS: AMLODIPINE 10 MG TABLET PO SCH (08:25)
[2017-04-24] MEDS: NICOTINE PATCH REMOVAL TD SCH (08:27)
[2017-04-24] MEDS: SENNA + DOCUSATE TABLET PO SCH ×2 (08:39→21:02)
--- NOTE | 2017-04-24 15:13 | IRU Progress Note ---
- Subjective/Serverity of Illness Date: 04/24/17 Mr. Lombardi was interviewed on a couple of occasions today, first in his room and ultimately in the gymnasium. He initially did not want to participate with therapy. It was unclear to me if the issue was diffuse pain versus sleepiness versus simply not wanting to participate. Further clarification was sought from the patient as well as discussion with the therapists. He now clearly states that he is having discomfort and for that reason does not wish to participate. Otherwise he would. He believes that he is safe to go home. However he has significant functional deficits. I did discuss the case with Dr. Meyer today by phone. Initial pathology results from indicate that the tumor is metastatic and possibly from either bladder or upper GI origin. He will need to have another scan done for staging prior to institution of chemotherapy. It would be better if the patient were stronger prior to institute and chemotherapy. With regard to his diabetes, his blood sugars are monitored and are reasonably well controlled. He continues to be quite somnolent. He is on gabapentin 900 mg 3 times daily plus tramadol on a regular basis. He does not have history of renal failure and I think it would be reasonable to try a low dose of ibuprofen while cutting back on the gabapentin. The intent would be to allow him to wake up a bit but yet to have improved pain management. Exam Vital Signs: Temperature 96.1 F L 04/24/17 15:08 Pulse Rate 93 04/24/17 15:08 Respiratory Rate 18 04/24/17 15:08 Blood Pressure 148/88 H 04/24/17 15:08 Pulse Oximetry 91 04/24/17 15:08 Height/Weight/BMI: Height 1.88 m Weight 105.1 kg Body Mass Index 29.7 - Constitutional Present: moderate distress, well nourished, well developed, somnolent Comments: He is able to converse although his reduced hearing makes it difficult. In addition he is quite sleepy. He was able to communicate with me today with regard to his wishes. - Routine HEENT Exam Head: Present: normocephalic Eye: Present: EOMI ENT: Present: mucous membranes moist, oropharynx clear - Routine Neck Exam Present: supple - Routine Respiratory Exam Present: CTA bilaterally. Absent: wheezes - Routine Cardiovascular Exam Present: RRR, S1, S2. Absent: murmur - Routine Abdominal Exam Present: soft, normoactive bowel sounds, tenderness (somewhat diffusely tender but particularly in the right upper lobe.), non distended - Routine Extremities Exam Present: edema - Routine Skin Exam Present: dry, warm - Routine Neurological Exam Present: oriented X3, CN II-XII intact. Absent: alert - Routine Psychiatric Exam Present: normal affect, depressed Results IRU - Labs Labs: Reviewed all chart data as well as other providers notes. IRU A/P (1) Metabolic encephalopathy Current visit: Yes Status: Acute Continues to have reduced sensorium possibly related to pain medication plus gabapentin. We will reduce gabapentin to 600 mg 3 times daily and add ibuprofen for pain relief. (2) Metastatic cancer to bone Current visit: Yes Status: Acute Source of tumor unclear but possibly bladder or upper GI. Have discussed with oncology. He will need a repeat scan prior to initiation of therapy. (3) Uncontrolled type 2 diabetes mellitus with insulin therapy Current visit: Yes Status: Chronic Blood sugars are reasonably well controlled at the present time. DVT Prophylaxis: SCD's, Lovenox Resuscitation Status: Full Code - Course Hospital Course: Craig Nicole MD: 04/22/17 11:03 Patient continues to be somnolent. Change from oxycodone to tramadol. Oncology consultation today. 04/24/17 15:14 Patient initially did not want to participate in therapy today. He is now participating. Pain management is difficult as he is quite sleepy on current regimen. Reduce gabapentin to 600 mg 3 times daily and add ibuprofen. - Interventions to Obtain Goals PT Treatment Plan: Balance/Proprioception, Functional Activities, Gait Training , Patient/Family Education, Therapeutic Exercise OT Treatment Plan: ADL (Basic Care), Balance Training, IADL, Pt./Family Education, Ther. Exercise for ADL Goals Progress/Modifications: He will get the patient's pain under better control I think he could participate in therapy better and hopefully be able to tolerate chemotherapy better. Have discussed with oncology. Plan to discuss with the patient and family later on today as well. Overall outlook is poor at hopefully with additional multidisciplinary efforts we can improve his strength and his ability to tolerate chemotherapy. Today we decreased gabapentin to 600 mg 3 times daily and added on ibuprofen. We will continue tramadol at present.
[2017-04-24] MEDS: IBUPROFEN 400 MG TABLET PO SCH (17:34)
[2017-04-24] MEDS: ATORVASTATIN 40 MG TABLET PO SCH (20:57)
[2017-04-24] MEDS: GABAPENTIN 300 MG CAPSULE PO SCH (20:59)
[2017-04-24] MEDS: MELATONIN 1 MG TABLET PO SCH (21:00)
[2017-04-24] MEDS ORDERED: GABAPENTIN 600 MG TABLET PO SCH (21:00)
[2017-04-24] MEDS: TAMSULOSIN 0.4 MG CAPSULE PO SCH (21:01)
[2017-04-24] MEDS: ENOXAPARIN 40 MG/0.4 ML INJECTION SQ SCH (21:07)
[2017-04-25] MEDS: ACETAMINOPHEN 325 MG TABLET PO SCH ×4 (04:47→18:42)
[2017-04-25] MEDS: INSULIN GLARGINE 100unit/ml INJECTION SQ SCH (08:32)
[2017-04-25] MEDS: SENNA + DOCUSATE TABLET PO SCH ×2 (08:33→20:12)
[2017-04-25] MEDS: INSULIN ASPART 100unit/ml INJECTION SQ SCH ×4 (08:33→17:30)
[2017-04-25] MEDS: PredniSONE 20 MG TABLET PO SCH (08:33)
[2017-04-25] MEDS: ASPIRIN 81 MG CHEWABLE TABLET PO SCH (08:33)
[2017-04-25] MEDS: TRAMADOL 50 MG TABLET PO SCH ×4 (08:34→20:12)
[2017-04-25] MEDS: FAMOTIDINE 20 MG TABLET PO SCH ×2 (08:34→20:12)
[2017-04-25] MEDS: SERTRALINE 100 MG TABLET PO SCH (08:35)
[2017-04-25] MEDS: CARVEDILOL 6.25 MG TABLET PO SCH ×2 (08:35→17:29)
[2017-04-25] MEDS: AMLODIPINE 10 MG TABLET PO SCH (08:35)
[2017-04-25] MEDS: LISINOPRIL 10 MG TABLET PO SCH (08:35)
[2017-04-25] MEDS: IBUPROFEN 400 MG TABLET PO SCH ×3 (08:35→17:29)
[2017-04-25] MEDS: GABAPENTIN 300 MG CAPSULE PO SCH ×3 (08:35→20:11)
[2017-04-25] MEDS: NICOTINE PATCH REMOVAL TD SCH (08:36)
[2017-04-25] MEDS: NICOTINE 7 MG PATCH TD SCH (08:36)
[2017-04-25] MEDS: CALCIUM 500 + VIT D 200 TABLET PO SCH ×2 (08:36→20:11)
[2017-04-25] MEDS: MAGNESIUM OXIDE 400 MG TABLET PO SCH (08:36)
--- NOTE | 2017-04-25 11:08 | IRU Progress Note ---
- Subjective/Serverity of Illness Date: 04/25/17 Rohan was evaluated in his room with his and Ruthie, counter caser, present. Yesterday his had contacted me by phone late in the afternoon with concerns that he was not getting better and she wanted him to either move to intensive care unit or to go home. At that point we indicated to her that there was no indication for admission to the ICU. In addition at that point he had been quite sleepy and it was not clear that it was safe for him to return home. We have cut back on his gabapentin. He was on 900 mg 3 times daily from . We have now cut that back to 300 mg 3 times daily and indeed he does appear to be more awake and alert. He has been able to participate with therapy yesterday afternoon and this morning. I did speak with therapy today and they feel as though he would be stable to go home if he can have 24-hour supervision. We relayed all this information to the patient and his . They both demand that he be dismissed at the present time. We did give them the option of staying here to continue getting stronger prior to chemotherapy but they refused to stay here at this time. In addition, I reviewed the pathology report which his has brought in. We did not have access to this previously. I visited with Dr. Meyer again this morning who recommends that we make an appointment for him to be seen in the office next week. Patient is eating and drinking adequately. He reports significant pain diffusely as would be anticipated from his metastatic malignancy. He denies any nausea or vomiting. Exam Vital Signs: Temperature 98.6 F 04/25/17 08:00 Pulse Rate 111 H 04/25/17 08:00 Respiratory Rate 16 04/25/17 08:00 Blood Pressure 151/74 H 04/25/17 08:00 Pulse Oximetry 93 04/25/17 08:00 Height/Weight/BMI: Height 1.88 m Weight 98.7 kg Body Mass Index 29.7 - Constitutional Present: moderate distress, well nourished, well developed, cooperative Comments: Patient continues to be sleepier than desired. However he is awake and able to participate in the conversation during interview and examination today. - Routine HEENT Exam Head: Present: normocephalic Eye: Absent: scleral injection ENT: Present: mucous membranes moist, oropharynx clear - Routine Neck Exam Present: supple - Routine Respiratory Exam Present: CTA bilaterally. Absent: wheezes - Routine Cardiovascular Exam Present: RRR, S1, S2. Absent: murmur - Routine Abdominal Exam Present: soft, normoactive bowel sounds, tenderness (things to be tender particularly in the right upper quadrant. May have hepatomegaly as well. Difficult to assess.), non distended. Absent: rebound, guarding, firm, rigid - Routine Extremities Exam Present: edema, normal capillary refill - Routine Skin Exam Present: dry, warm - Routine Neurological Exam Present: oriented X3, CN II-XII intact, normal speech. Absent: alert (still remains a bit sleepy.), facial asymmetry - Routine Psychiatric Exam Present: normal affect, cooperative Results IRU - Labs Labs: Have reviewed laboratory values, chart data and other providers notes. IRU A/P (1) Metabolic encephalopathy Current visit: Yes Status: Acute Continues to have episodes of confusion but he is clearing a bit. For this is related to his pain medication, metastatic disease, previous hypercalcemia or even the stroke is not clear. MRI at did not indicate the stroke was acute. (2) Metastatic cancer to bone Current visit: Yes Status: Acute Path report now available and indicates source likely either bladder or upper GI. We faxed this report to Dr. Meyer. (3) Uncontrolled type 2 diabetes mellitus with insulin therapy Current visit: Yes Status: Chronic Blood sugars are reviewed and appear to be adequately controlled. DVT Prophylaxis: SCD's, Lovenox Resuscitation Status: Full Code - Course Hospital Course: Craig Nicole MD: 04/22/17 11:03 Patient continues to be somnolent. Change from oxycodone to tramadol. Oncology consultation today. 04/24/17 15:14 Patient initially did not want to participate in therapy today. He is now participating. Pain management is difficult as he is quite sleepy on current regimen. Reduce gabapentin to 600 mg 3 times daily and add ibuprofen. 04/25/17 11:11 Patient has been more participatory with therapy. Gabapentin reduced to 300 mg 3 times daily Ibuprofen was added and currently is tolerated. - Interventions to Obtain Goals PT Treatment Plan: Balance/Proprioception, Functional Activities, Gait Training , Patient/Family Education, Therapeutic Exercise OT Treatment Plan: ADL (Basic Care), Balance Training, IADL, Pt./Family Education, Ther. Exercise for ADL Goals Progress/Modifications: We discussed numerous options with the patient and his . In addition discussed with son Grupo yesterday. He has metastatic disease. He'll be seen by Dr. Meyer this coming week. It is felt he is stable and safe to return home with 24-hour supervision. He is able to eat and drink adequately at the present time. We did give him the option of staying here longer to get stronger but he declines at this time.
--- NOTE | 2017-04-25 13:20 | IRU Team Meeting ---
IRU Team Meeting - Nursing Bladder Assistive Devices Utilized:: Absorbent Pad Bladder Management Level of Assist: Stand By Assist/Supervision Bladder Frequency of Accidents: 1 accident this shift Number of Bladder Accidents: 1 Bowel Assistive Devices Utilized:: Medication, Absorbent Pad Bowel Management Level of Assist: Modified Independent Vital Signs: Vital Signs - 24 hr 04/24/17 15:08 04/24/17 23:49 04/25/17 08:00 Temperature 96.1 F L 97.9 F 98.6 F Pulse Rate 93 91 111 H Respiratory Rate 18 16 16 Blood Pressure 148/88 H 165/87 H 151/74 H Pulse Oximetry 91 92 93 Current Medications: Acetaminophen (Tylenol) 650 mg PO Q5H [facility] Last Admin: 04/25/17 08:34 Dose: 650 mg Amlodipine Besylate (Norvasc) 10 mg PO DAILY [facility] Last Admin: 04/25/17 08:35 Dose: 10 mg Aspirin (Asa) 81 mg PO DAILY [facility] Last Admin: 04/25/17 08:33 Dose: 81 mg Atorvastatin Calcium (Lipitor) 40 mg PO HS [facility] Last Admin: 04/24/17 20:57 Dose: 40 mg Calcium/Vitamin D (Os Tadeo-D 500) 1 tab PO BID [facility] Last Admin: 04/25/17 08:36 Dose: 1 tab Carvedilol (Coreg) 6.25 mg PO BIDWM [facility] Last Admin: 04/25/17 08:35 Dose: 6.25 mg Enoxaparin Sodium (Lovenox) 40 mg SQ 2100 [facility] Last Admin: 04/24/17 21:07 Dose: 40 mg Famotidine (Pepcid) 20 mg PO BID [facility] Last Admin: 04/25/17 08:34 Dose: 20 mg Gabapentin (Neurontin) 300 mg PO TID [facility] Last Admin: 04/25/17 08:35 Dose: 300 mg Ibuprofen (Motrin) 400 mg PO TIDWM [facility] Last Admin: 04/25/17 12:16 Dose: 400 mg Insulin Aspart (Novolog) 8 unit SQ TIDWM [facility] Last Admin: 04/25/17 13:08 Dose: Not Given Insulin Glargine (Lantus) 16 unit SQ DAILY [facility] Last Admin: 04/25/17 08:32 Dose: 16 unit Lisinopril (Prinivil) 10 mg PO DAILY [facility] Last Admin: 04/25/17 08:35 Dose: 10 mg Magnesium Oxide (Magox) 400 mg PO DAILY [facility] Last Admin: 04/25/17 08:36 Dose: 400 mg Melatonin (Melatonin) 3 mg PO [facility] Last Admin: 04/24/17 21:00 Dose: 3 mg Nicotine (Nicoderm) 7 mg TD DAILY [facility] Last Admin: 04/25/17 08:36 Dose: 7 mg Nicotine (Nicotine Patch Removal) 1 removal TD DAILY [facility] Last Admin: 04/25/17 08:36 Dose: 1 removal Prednisone (Deltasone 20 Mg) 60 mg PO [facility] Stop: 04/28/17 23:59 Last Admin: 04/25/17 08:33 Dose: 60 mg Prednisone (Deltasone 20 Mg) 40 mg PO WB [facility] Stop: 05/05/17 23:59 Prednisone (Deltasone 20 Mg) 20 mg PO [facility] Stop: 05/12/17 23:59 Senna/Docusate Sodium (Senna Plus Tablet) 1 tab PO BID [facility] Last Admin: 04/25/17 08:33 Dose: 1 tab Sertraline HCl (Zoloft) 150 mg PO DAILY [facility] Last Admin: 04/25/17 08:35 Dose: 150 mg Tamsulosin HCl (Flomax) 0.4 mg PO [facility] Last Admin: 04/24/17 21:01 Dose: 0.4 mg Tramadol HCl (Ultram) 50 mg PO QID [facility] Last Admin: 04/25/17 12:17 Dose: 50 mg Current Medical Issues: metastatic cancer, diabetes mellitus, encephalopathy Comments: I certify that I personally led the interdisciplinary team meeting and agree with comments, barriers and goals indicated. Team meeting was held in the patient's room with the patient and the following family members present: patient alone ( was invited) Mr. Lombardi continues to struggle with pain management as well as alertness. He frequently is somnolent. He has been on gabapentin 900 mg 3 times daily. This is been reduced to 300 mg 3 times daily and effort to help him be more awake. Ibuprofen has been added. His vital signs have remained stable. His blood sugars are reasonably well controlled although oral intake is not good. - Dietary Supplements are provided and recommended for the patient to continue when he goes home. Oral intake is marginal. - Speech Therapy Patient is seen by speech therapy. Due to somnolence, it has been difficult to assess him or to indicate improvement. - Physical Therapy Bed, Chair, Wheelchair Transfer Assist: Minimal Assistance Ambulation Ability: Contact Guard Assistance Ambulation Distance: 165 Stair Climbing Ability: Stand By Assist/Supervision, Household Exception Number of Steps Climbed: 6 Car Transfer Ability: Stand By Assist/Supervision Comments: Patient continues to be lethargic and frequently declines to participate in physical therapy. He is able to perform sit to supine without assistance. Car transfer and stair's are declined by the patient. However, therapy feels as though he is safe to return home with supervision at this time. - Occupational Therapy Eating Ability: Modified Independent Grooming Ability: Minimal Assistance Bathing Ability: Moderate Assistance Upper Body Dressing Ability: Minimal Assistance Lower Body Dressing Ability: Moderate Assistance Toileting Assist: Maximal Assistance Toilet Transfer Assist: Contact Guard Assistance Comments: He has not been able to participate a lot due to lethargy and somnolence. - Goals Physical Therapy Goals: 04/24/17 Goals: 1.) Consistent supervision with all functional mobility including trasnfers and ambulation. 2.) Improved safety awareness during transfers demonstrating proper hand placement. Occupational Therapy Goals: OT goals 04/25/17: 1) Complete grooming tasks at supervision level standing at sink. 2) Complete upper body dressing at supervision level. 3) Complete lower body dressing with minimal assistance. 4 ) Complete toileting tasks at supervision level. - Barriers to Discharge Barriers to Attaining Goals: Balance (balance and proprioceptive training is provided.), Endurance (efforts are underway to decrease rest breaks.), Other ( safety awareness: Education and visual reminders.) - Care Plan Anticipated Length of Stay (days): 1 Anticipated DC Destination: Home, Self Care, Home Health Service I have led this team conference and agree with the plan. Interventions/Goals: It is our recommendation that the patient stay for continued therapy while we adjust medications to improve his alertness. However, the patient and his declined that. They want the patient to return to his home. We have discussed with therapy who believes that he is safe to return home as long as there is 24- hour supervision. His indicates that that will be the case.
[2017-04-25] MEDS: ATORVASTATIN 40 MG TABLET PO SCH (20:11)
[2017-04-25] MEDS: MELATONIN 1 MG TABLET PO SCH ×2 (20:12→23:40)
[2017-04-25] MEDS: TAMSULOSIN 0.4 MG CAPSULE PO SCH (20:12)
[2017-04-25] MEDS: ENOXAPARIN 40 MG/0.4 ML INJECTION SQ SCH (20:12)
[2017-04-26 00:32] VITALS: RESP 16
[2017-04-26] MEDS ORDERED: TRAMADOL 50 MG TABLET PO SCH (01:24)
[2017-04-26] MEDS: ACETAMINOPHEN 325 MG TABLET PO SCH ×4 (01:30→11:26)
[2017-04-26] MEDS: IBUPROFEN 400 MG TABLET PO SCH ×2 (07:24→12:54)
[2017-04-26 08:44] VITALS: BP 151/88; TEMP 97.9
[2017-04-26] MEDS: ASPIRIN 81 MG CHEWABLE TABLET PO SCH (08:44)
[2017-04-26] MEDS: TRAMADOL 50 MG TABLET PO SCH ×2 (08:44→12:54)
[2017-04-26] MEDS: SENNA + DOCUSATE TABLET PO SCH (08:44)
[2017-04-26] MEDS: FAMOTIDINE 20 MG TABLET PO SCH (08:44)
[2017-04-26] MEDS: SERTRALINE 100 MG TABLET PO SCH (08:44)
[2017-04-26] MEDS: PredniSONE 20 MG TABLET PO SCH (08:45)
[2017-04-26] MEDS: AMLODIPINE 10 MG TABLET PO SCH (08:45)
[2017-04-26] MEDS: CALCIUM 500 + VIT D 200 TABLET PO SCH (08:45)
[2017-04-26] MEDS: CARVEDILOL 6.25 MG TABLET PO SCH (08:45)
[2017-04-26] MEDS: GABAPENTIN 300 MG CAPSULE PO SCH (08:45)
[2017-04-26] MEDS: MAGNESIUM OXIDE 400 MG TABLET PO SCH (08:45)
[2017-04-26] MEDS: LISINOPRIL 10 MG TABLET PO SCH (08:45)
[2017-04-26] MEDS: INSULIN GLARGINE 100unit/ml INJECTION SQ SCH (08:46)
[2017-04-26] MEDS: NICOTINE 7 MG PATCH TD SCH (08:46)
[2017-04-26] MEDS: INSULIN ASPART 100unit/ml INJECTION SQ SCH ×2 (08:46→12:54)
[2017-04-26] MEDS: NICOTINE PATCH REMOVAL TD SCH (09:01)
[2017-04-26 12:35] VITALS: PULSE 100; O2SAT 92
--- NOTE | 2017-04-26 12:59 | Progress Note ---
Progress Note: Mr. Lombardi was seen briefly prior to discharge. He and his requested prescription for oxycodone for home use as pain control is inadequate with tramadol as a single agent. His reports previously using oxycodone at and that the patient rested better and pain control was improved. Dr. Nicole reported he had been taking 10 mg when necessary. Mrs. Lombardi describes generalized drowsiness unrelated to pain medications. Patient had no other concerns at this time. Appetite is poor. Patient is slightly drowsy and speech is mumbled/soft. Metastatic carcinoma-unknown primary; bone metastases Hypertension Ischemic stroke-left frontal lobe Diabetes mellitus, type II, chronic insulin therapy Follow-up is planned with Dr. Flores and Dr. Meyer to readdress pain needs in the near future. Prescription written for oxycodone 10 mg 1 - 4 times a day when necessary pain # 30.
--- NOTE | 2017-04-28 15:01 | Discharge Summary ---
Discharge Information Date of admission: 04/20/17 13:37 Anticipated date of discharge: 04/26/17 Attending Physician: Craig Nicole MD Primary care physician: Chad Flores MD Consults: 04/20/17 15:34 Physician Consult [CONS] Routine Consulting Provider: Laurel Vela Reason For Exam: medical management Ordering Provider has Notified Emergency Specialist: No 04/21/17 11:55 Physician Consult [CONS] Routine Consulting Provider: Starla Meyer Reason For Exam: discuss opts re: new cancer dx Ordering Provider has Notified Emergency Specialist: Yes - Discharge Diagnosis (1) Metabolic encephalopathy Status: Acute (2) Metastatic cancer to bone Status: Acute (3) Uncontrolled type 2 diabetes mellitus with insulin therapy Status: Chronic 1. Metabolic encephalopathy 2. Metastatic cancer of uncertain primary 3. Diabetes mellitus type 2 not on retirement insulin, recently not controlled - Laboratory Labs: 04/22/17 04:27 04/21/17 05:29 History of Present Illness HPI: Mr. Lombardi is a 66-year-old gentleman who developed significant confusion on the morning of 04/07/2017. He was seen in the emergency department and ultimately transferred to [facility] for emergent evaluation and possible intervention by the stroke team. CT scan in [place] demonstrated what appeared to be a stroke in the left frontal cortex. He was also hypertensive and tachycardic. He was admitted to on 04/07/2017. Shortly after admission he developed agitation and altered mental status. He was diagnosed with encephalopathy with the possibility of autoimmune or paraneoplastic encephalitis clinically. He also had hypercalcemia. While at he underwent a number of studies including PET scan, CT chest, as well as biopsy of T12 and L1. Ultimately this showed evidence of metastatic malignancy with possible bladder or upper GI primary. It is noted that an MRI was done at and they did not feel as though the stroke was acute. Discussion was held with the patient at and the intent was to have him come to acute inpatient rehabilitation because of multiple functional deficits in order to increase his strength prior to initiation of chemotherapy. Hospital Course This is a general summary of the patient's hospital course. For more details refer to the complete medical record. Mr. Lombardi was admitted to acute inpatient rehabilitation on 04/21/2017. At the time of arrival he was quite somnolent. It was noted he was on gabapentin 900 mg 3 times daily. Ultimately the gabapentin was reduced to 300 mg 3 times daily. He was treated with tramadol 50 mg 4 times daily as well as ibuprofen, both on a routine basis. He continued to be sleepy but was less somnolent than at the time of admission. He did come in on oxycodone but due to his severe somnolence, this was changed to tramadol. Medically, we monitored his diabetes mellitus and his insulin doses were adjusted by the hospitalist service. He has been on high-dose corticosteroids which likely would affect the blood sugars as well. In addition he was treated for his hypertension and metabolic encephalopathy. He was seen in consultation by the hospitalist service as well as Dr. Meyer, oncology. He was seen by physical therapy. Progress was difficult due to his somnolence. Bed/chair/wheelchair transfers were ultimately able to be performed with minimum assistance. Sit to stand transfers were minimum assistance and stand to sit transfers were contact guard assistance. Toilet transfer assist was contact- guard assistance level. He was ultimately able to ambulate 118 feet with maximal assistance of 1 person with a front-wheeled walker. He was also seen by occupational therapy with the following final functional ability noted: Eating was independent, grooming was contact-guard assist, bathing was maximum assistance. Upper body dressing was with minimum assistance and lower body dressing with moderate assistance. On 04/24/2017, his contacted the unit and I (Dr. Nicole) spoke with her. She demanded that the patient be dismissed to their home. We were concerned about his safety initially. We did evaluate him over the next 24 hours with therapy. At this point therapy feels as though he is safe to go home with 24- hour supervision. His will obtain a hospital bed and commode and states that she will supervise him 24 hours daily. I discussed the case with Dr. Meyer who will see him in his office next week to consider chemotherapy. In addition I contacted Dr. Chad Flores to advise him of the status of the patient. Please note that we were willing to continue working with him to help him regain his strength prior to chemotherapy but the patient and his demanded that he be dismissed. He was initially sent home with a prescription for tramadol 50 mg tablets #40 with no refills. However, his stated that the tramadol would not be sufficient and she demanded that she be given a prescription for oxycodone IR. Dr. Litzy Fernandez, hospitalist, graciously came to see the patient and did provide that prescription on 04/26/2017. Gabapentin was reduced to 300 mg 3 times day due to excessive somnolence. His blood sugars are reasonably well controlled during his stay on acute inpatient rehabilitation. He initially was going to be sent home with insulin. However his stated that she preferred that he be on metformin and therefore this was changed back to metformin. His intake is poor and he will be followed by home health with regard to monitoring his blood sugars etc. Follow-up will be with Dr. Meyer and Dr. Flores. Hospital course: 04/20/17 Agree with admission to IRU for for further strengthening and medical management. Consult Dr. Meyer regarding his newly diagnosed metastatic cancer. Will monitor blood sugars and adjust insulin as needed. Continue metformin. Monitor blood pressures and adjust medications as needed. Pain management and therapies per Dr. Nicole. Follow electrolytes closely given recent diagnoses of hypernatremia and hypercalcemia. Care to return to Dr. Flores upon DC. Hospitalist team will continue to follow patient throughout his stay. Appreciate the consult. 04/21/17 Increase Coreg from 3.125 to 6.25 twice a day as pulse is averaging 115 since admission. Blood pressures are stable. I discussed his case with Dr. Meyer who agreed to see patient in consultation tomorrow. Dr. Nicole has extended the time between his narcotics dosing due to his excessive somnolence. Blood sugars are reviewed and have been stable thus far. Patient continues on prednisone 80 mg daily which was originally initiated as Solumedrol IV for encephalopathy 2 weeks ago, and then converted to Prednisone prior to DC. There were no clear instructions from previous facility as to the recommendations for weaning. Discussed with Dr. Lunsford. Will wean by 20mg weekly unless complications arise. Time spent with patient: greater than 35 minutes Resuscitation Status: Full Code Discharge Plan - Med Rec/Dispo Referrals/Follow Up: Starla Meyer MD [Physician] - (Dr. Jacob Meyer on 04/30/17 at 2:00 pm for follow-up. [address] [place] [id number]) Chad Flores MD [Family Provider] - (Dr. Renetta Flores on 05/07/17 at 11:30 am for Hosp. follow-up. [address] [place] [address]) Prescriptions: New Carvedilol [Coreg] 6.25 mg PO BIDWM #60 tab Tramadol [Ultram] 50 mg PO QID #40 tab Oxycodone HCl 10 mg PO Q6H PRN #30 tab PRN Reason: Pain Amlodipine [Norvasc] 10 mg PO DAILY #30 tab Gabapentin 300 mg PO TID #45 cap Continue Sennosides/Docusate Sodium [Senokot-S Tablet] 1 each PO BID Nicotine Patch Removal 1 patch TD DAILY Nicotine Patch [Nicoderm] 7 mg TD DAILY Magnesium Oxide [Magnesium] 400 mg PO DAILY Famotidine [Pepcid] 1 tab PO BID Calcium 500 + D [Os Tadeo-D 500] 1 tab PO BID Acetaminophen 650 mg PO Q4H Aspirin Chewable [ASA] 81 mg PO DAILY Insulin Aspart [NovoLOG] 8 unit SQ TIDWM #1 vial Lisinopril [Prinivil] 10 mg PO DAILY #30 tab PredniSONE [Deltasone 20 mg] 80 mg PO WB #53 tab Sertraline HCl [Zoloft] 150 mg PO DAILY #45 tab Tamsulosin [Flomax] 0.4 mg PO DAILY #30 cap Melatonin/Pyridoxine HCl (B6) [Melatonin 3 mg Tablet] 1 each PO HS Insulin Glargine [Lantus] 16 unit SQ DAILY #1 vial Changed Atorvastatin [Lipitor] 40 mg PO HS #30 Discontinued Gabapentin [Neurontin] 900 mg PO TID Enoxaparin [Lovenox] 40 mg SQ 2100 Carvedilol 3.125 mg PO BID Amlodipine [Norvasc] 5 mg PO DAILY Insulin Aspart [NovoLOG] 0 - 7 unit SQ ACHS - Disposition [facility] - Dismissal Complete Discharge Instructions are:: Complete
--- NOTE | 2017-04-28 15:05 | Letter to Referring Physician ---
Dear Dr. Flores, This is a brief note to bring you up-to-date on the status of Rohan Lombardi and his stay on the acute inpatient rehabilitation unit at [facility]. As you are likely aware, he presented to [facility] emergency department with acute confusion and hypertension with tachycardia. There was concern initially about a stroke on CT scan. He was transferred to in [place] because the [facility] were on diversion. While at that location and MRI was done of the brain failing to reveal an acute stroke although he may have had an old one. He was diagnosed with metastatic malignancy of uncertain primary. The patient was stabilized while on the acute level and admitted to inpatient rehabilitation unit at [facility] on April 20, 2017. While on inpatient rehabilitation, this patient was seen by occupational therapy and physical therapy. Due to his medical status and somnolence, progress was minimal. The initial intent while he was a [facility] was for him to come to acute inpatient rehabilitation to get stronger and then to consider chemotherapy for his metastatic malignancy. Please see a copy of the history and physical examination as well as discharge summary enclosed with this letter for further details. He was followed by the hospitalist service and was also seen by Dr. Meyer while on rehabilitation. He initially was on oxycodone IR 10 mg plus gabapentin 900 mg 3 times daily. Because of his excess somnolence, the gabapentin was gradually reduced to 300 mg 3 times daily and the oxycodone was changed to tramadol. We were certainly willing to continue working with him on rehabilitation. However his and the patient demanded that he be dismissed to go back home to pursue outpatient chemotherapy etc. In addition, his requested oxycodone be restarted and that he not go home with tramadol. He was given a prescription for 40 tablets of oxycodone IR 10 mg tablets. Thank you for allowing us to be involved in this nice patient's care. Please contact me directly should you have any questions regarding their stay on the inpatient rehabilitation unit. Sincerely, Craig Nicole M.D.
[2017-04-29] MEDS ORDERED: PredniSONE 20 MG TABLET PO SCH (08:00)
[2017-05-06] MEDS ORDERED: PredniSONE 20 MG TABLET PO SCH (08:00)
== END 2017-04-26 13:45 | disposition home health service (06) | DRG 945 ==
PROVIDERS: ADMIT Internal Medicine; ATTEND Internal Medicine